=== PATIENT | female | born 1930 | race Two or more races ===

== ENCOUNTER 2018-03-24 11:16 | Inpatient (IN) ==
[2018-03-24] MEDS ORDERED: PHARMACY CONSULT - DOSE _____ XX SCH (16:59)
[2018-03-24] MEDS ORDERED: TUSSIONEX PENNKINETIC SUSP PO PRN (16:59)
[2018-03-24] MEDS ORDERED: SALINE 3% 15 ML NEB TX ONE (17:18)
[2018-03-24] MEDS ORDERED: SALINE 3% 15 ML NEB TX NEB ONE (17:40)
[2018-03-24 17:49] LABS: BASOPHILS # (AUTO) 0.1 X10^3/uL (0.0-0.1); BASOPHILS % (AUTO) 0.1 % (0.2-1.0); EOSINOPHILS % (AUTO) 0.1 % (0.9-2.9); HEMATOCRIT 27.2 % (36.0-47.0); LYMPHOCYTES # (AUTO) 43.5 X10^3/uL (1.3-2.9); LYMPHOCYTES % (AUTO) 86.5 % (21.0-51.0); MEAN CORPUSCULAR HEMOGLOBIN 30.3 pg (27.0-34.0); MEAN CORPUSCULAR HGB CONC 33.1 g/dL (33.0-35.0); MEAN CORPUSCULAR VOLUME 91.4 fL (80.0-100.0); MEAN PLATELET VOLUME 10.2 fL (7.4-11.0); MONOCYTES # (AUTO) 0.2 x10^3/uL (0.3-0.8); MONOCYTES % (AUTO) 0.4 % (0.0-13.0); NEUTROPHILS # (AUTO) 6.5 x10^3/uL (2.2-4.8); NEUTROPHILS % (AUTO) 12.9 % (42.0-75.0); PLATELET COUNT 186 X10^3/uL (150.0-450.0); RED BLOOD COUNT 2.98 X10^6/uL (3.5-5.4); RED CELL DISTRIBUTION WIDTH 15.4 % (11.6-16.5)
[2018-03-24 17:58] LABS: WHITE BLOOD COUNT 50.3 X10^3/uL (3.6-10.0)
[2018-03-24 18:04] LABS: CALCIUM 9.8 mg/dL (8.5-10.1); CARBON DIOXIDE 29.1 mmol/L (21-32); COR CA(FOR HYPOALB) 10.6 mg/dL (8.5-10.1); CREATININE 1.37 mg/dL (0.55-1.02); TOTAL PROTEIN 7.5 g/dL (6.4-8.2)
[2018-03-24] MEDS ORDERED: NS 1/2 1000 ML IV 1,000 ML IV ONE (18:10)
[2018-03-24 18:13] VITALS: BMI 25.4
[2018-03-24] MEDS: NS 1/2 1000 ML IV 1,000 ML IV SCH (18:17)
[2018-03-24] MEDS: ROBITUSSIN DM PO SCH ×3 (18:17→20:07)
[2018-03-24 18:53] LABS: METAMYELOCYTES % 11; MYELOCYTES % 19; PLATELET MORPHOLOGY COMMENT NORMAL (NORMAL); SMUDGE CELLS FEW
[2018-03-24 18:54] LABS: HYPOCHROMASIA 1+
--- NOTE | 2018-03-24 19:04 | RAD ---
HISTORY: Productive cough Study: PA and lateral views of the chest. Comparison: None. Findings: The cardiomediastinal silhouette is normal. No focal consolidations, pleural effusions or pneumothora x. Osseous structures demonstrate no acute abnormality. Bilateral hyper expansion with coarsening of interstitial markings. IMPRESSION: 1. No acute cardiopulmonary process. Reported By:
[2018-03-24] MEDS: XOPENEX 1.25 MG/3 ML NEBULE NEB SCH (20:00)
[2018-03-24] MEDS: LEVAQUIN PREMIX IV 750 MG 750 MG/150 ML BAG IV SCH (20:07)
[2018-03-25] MEDS: NS 1/2 1000 ML IV 1,000 ML IV SCH ×3 (06:07→21:15)
[2018-03-25 06:41] LABS: BASOPHILS # (AUTO) 0.2 X10^3/uL (0.0-0.1); BASOPHILS % (AUTO) 0.4 % (0.2-1.0); HEMATOCRIT 25.5 % (36.0-47.0); HEMOGLOBIN 8.4 g/dL (12.0-16.0); LYMPHOCYTES # (AUTO) 31.9 X10^3/uL (1.3-2.9); LYMPHOCYTES % (AUTO) 80.3 % (21.0-51.0); MEAN CORPUSCULAR HEMOGLOBIN 29.9 pg (27.0-34.0); MEAN CORPUSCULAR HGB CONC 33.1 g/dL (33.0-35.0); MEAN CORPUSCULAR VOLUME 90.3 fL (80.0-100.0); MEAN PLATELET VOLUME 10.2 fL (7.4-11.0); MONOCYTES # (AUTO) 1.2 x10^3/uL (0.3-0.8); NEUTROPHILS # (AUTO) 6.5 x10^3/uL (2.2-4.8); NEUTROPHILS % (AUTO) 16.3 % (42.0-75.0); PLATELET COUNT 162 X10^3/uL (150.0-450.0); RED BLOOD COUNT 2.83 X10^6/uL (3.5-5.4); RED CELL DISTRIBUTION WIDTH 15.7 % (11.6-16.5)
[2018-03-25 06:43] LABS: BILIRUBIN,URINE NEGATIVE (NEGATIVE); BLOOD/HEMOGLOBIN,URINE 3+ (NEGATIVE); GLUCOSE, URINE NEGATIVE (NEGATIVE); KETONES,URINE NEGATIVE (NEGATIVE); LEUKOCYTE ESTERASE ,URINE NEGATIVE (NEGATIVE); NITRITES,URINE NEGATIVE (NEGATIVE); PROTEIN,URINE 2+ (NEGATIVE); UROBILINOGEN,URINE NORMAL (NORMAL)
[2018-03-25 06:45] LABS: APPEARANCE,URINE CLEAR (CLEAR); COLOR,URINE YELLOW (YELLOW)
[2018-03-25 06:58] LABS: AMORPHOUS SEDIMENT,UR TRACE /HPF (NEGATIVE); BACTERIA,URINE TRACE /HPF (NEGATIVE); SQUAMOUS EPITHELIAL CELL,UR RARE /HPF (NEGATIVE)
[2018-03-25 06:58] LABS: ALBUMIN 2.6 g/dL (3.4-5.0); CALCIUM 9.4 mg/dL (8.5-10.1); CARBON DIOXIDE 27.1 mmol/L (21-32); COR CA(FOR HYPOALB) 10.5 mg/dL (8.5-10.1); CREATININE 1.18 mg/dL (0.55-1.02); TOTAL PROTEIN 6.8 g/dL (6.4-8.2)
[2018-03-25 07:02] LABS: WHITE BLOOD COUNT 39.8 X10^3/uL (3.6-10.0)
[2018-03-25 07:24] LABS: BAND NEUTROPHILS % 3 % (0-10)
[2018-03-25 07:25] LABS: PLATELET MORPHOLOGY COMMENT NORMAL (NORMAL); SMUDGE CELLS RARE
[2018-03-25 07:26] LABS: HYPOCHROMASIA SLIGHT
[2018-03-25] MEDS ORDERED: ROBITUSSIN DM ONE (07:52)
[2018-03-25] MEDS: ROBITUSSIN DM PO SCH ×4 (08:35→21:13)
--- NOTE | 2018-03-25 08:43 | RAD ---
HISTORY: Pneumonia Study: AP portable chest Comparison: 03/24/2018 Findings: There again noted to be coarsened lung markings bilaterally, unchanged. Minimal apical pleural/paren chymal thickening is noted. The heart size is normal. Electronic cardiac device is present on the l eft and its leads appear to be in appropriate position. There appears to be cardiac valve/annulus ca lcification. No acute bony abnormalities are identified. IMPRESSION: 1. Findings of chronic interstitial scarring. 2. No radiographic evidence of acute cardiopulmonary disease or significant change is noted when comp ared to the prior examination. Reported By:
[2018-03-25] MEDS: XOPENEX 1.25 MG/3 ML NEBULE NEB SCH ×4 (09:20→20:34)
[2018-03-25] MEDS ORDERED: NS 1/2 1000 ML IV 1,000 ML IV ONE ×2 (10:11→21:47)
[2018-03-25] MEDS ORDERED: ZOFRAN TAB 4 MG PO PRN (10:45)
[2018-03-25] MEDS: HEMOCYTE-PLUS PO SCH (12:23)
[2018-03-25] MEDS: VOLTAREN 1 % GEL MULTI DOSE TUBE TOP SCH ×3 (12:24→21:16)
[2018-03-25] MEDS: COLACE CAP 100 MG PO SCH ×2 (12:24→21:13)
[2018-03-25] MEDS: COZAAR PO SCH ×2 (12:24→21:13)
[2018-03-25] MEDS: CLARITIN PO SCH (12:24)
[2018-03-25] MEDS: CHLORTHALIDONE PO SCH (12:24)
[2018-03-25] MEDS: NORVASC TAB 5 MG PO SCH (12:25)
[2018-03-25] MEDS: TORADOL 15 MG VIAL IVP SCH ×3 (12:25→22:22)
[2018-03-25] MEDS: MIRALAX POWDER (1 DOSE 17 G) PO SCH ×2 (12:25→21:12)
[2018-03-25] MEDS ORDERED: PATIENT'S HOME MEDICATION (Famotidine [Pepcid] 40 MG) PO SCH (21:00)
[2018-03-25] MEDS: ZOCOR TAB 20 MG PO SCH (21:13)
[2018-03-25] MEDS: PEPCID TAB 20 MG PO SCH (21:14)
[2018-03-26] MEDS: TORADOL 15 MG VIAL IVP SCH ×4 (05:42→22:17)
[2018-03-26] MEDS: VOLTAREN 1 % GEL MULTI DOSE TUBE TOP SCH ×3 (05:43→22:18)
--- NOTE | 2018-03-26 06:21 | RAD ---
Examination: AP chest History: Pneumonia Comparison reference 03/17/2018 Findings: Continued normal heart size with stable position of pacemaker. Degenerative calcification mitral annulus. Mild vascular congestion and suspect chronic peribronchial thickening. Impression: No interval change or new abnormality demonstrated. Reported By:
[2018-03-26 06:36] LABS: BASOPHILS # (AUTO) 0.1 X10^3/uL (0.0-0.1); BASOPHILS % (AUTO) 0.3 % (0.2-1.0); EOSINOPHILS % (AUTO) 0.1 % (0.9-2.9); HEMOGLOBIN 7.9 g/dL (12.0-16.0); LYMPHOCYTES # (AUTO) 34.7 X10^3/uL (1.3-2.9); LYMPHOCYTES % (AUTO) 87.5 % (21.0-51.0); MEAN CORPUSCULAR HEMOGLOBIN 29.8 pg (27.0-34.0); MEAN CORPUSCULAR HGB CONC 33.1 g/dL (33.0-35.0); MEAN CORPUSCULAR VOLUME 90.1 fL (80.0-100.0); MEAN PLATELET VOLUME 10.1 fL (7.4-11.0); MONOCYTES # (AUTO) 0.9 x10^3/uL (0.3-0.8); MONOCYTES % (AUTO) 2.4 % (0.0-13.0); NEUTROPHILS # (AUTO) 3.8 x10^3/uL (2.2-4.8); NEUTROPHILS % (AUTO) 9.7 % (42.0-75.0); PLATELET COUNT 161 X10^3/uL (150.0-450.0); RED BLOOD COUNT 2.67 X10^6/uL (3.5-5.4); RED CELL DISTRIBUTION WIDTH 15.4 % (11.6-16.5)
[2018-03-26 06:48] LABS: ALANINE AMINOTRANSFERASE 16 Units/L (12-78); ALBUMIN 2.5 g/dL (3.4-5.0); ALKALINE PHOSPHATASE 76 Units/L (46-116); ASPARTATE AMINO TRANSFERASE 17 Units/L (15-37); BLOOD UREA NITROGEN 32 mg/dL (7-18); CALCIUM 9.1 mg/dL (8.5-10.1); CARBON DIOXIDE 26.5 mmol/L (21-32); CHLORIDE 98 mmol/L (98-107); COR CA(FOR HYPOALB) 10.3 mg/dL (8.5-10.1); CREATININE 1.29 mg/dL (0.55-1.02); SODIUM 133 mmol/L (136-145); TOTAL PROTEIN 6.4 g/dL (6.4-8.2); eGFR NON BLACK RACES 42 (>60)
[2018-03-26 06:55] LABS: WHITE BLOOD COUNT 39.6 X10^3/uL (3.6-10.0)
[2018-03-26 07:13] LABS: BAND NEUTROPHILS % 8 % (0-10); HYPOCHROMASIA SLIGHT; PLATELET MORPHOLOGY COMMENT NORMAL (NORMAL)
--- NOTE | 2018-03-26 08:30 | DR.H&P ---
H&P - History & Physical for Day of: H&P Date: 03/24/18 - Chief Complaint Chief Complaint: cough, fever - History of Present Illness History of Present Illness: is a 87 year old patient of ours who presented to the hospital as a direct admission from [facility]. She presented with complaints of an intermittent, productive cough that began four days ago. Sputum noted to be thick and yellow. On auscultation of lung vega, patient noted with diminished breath sounds throughout. On arrival, vitals were 98.2, 100, 20, 96% RA, 151/70. Labs were obtained. Abnormal lab values include the following: Abnormal Labs: WBC 50.3, RBC 2.98, Hgb 9.0, Hct 27.2, Sodium 134, Corrected Sodium 134, Chloride 96, BUN 35, Creatinine 1.37, GFR af 47, GFR non 39, Glucose 116, Corrected Calcium 10.6, AST 13, Albumin 3.0 , A/G ratio 0.7. Blood Cultures x2 Pending. Sputum Culture Pending; Sputum Gram Stain - Gram Neg Cocci Rare, Gram Pos Rods Rare, Gram Pos Cocci Many, Gram Neg Rods Few, WBC Many. Chest X-Ray: No acute cardiopulmonary process. Patient does have a history significant for leukemia. She was started on the pneumonia protocol with levaquin 750mg IV Q48h, neb treatments, supplemental oxygen, and NS at 75ml/hr. We plan to follow up with AM labs and chest xray and continue to monitor patient. - Past Medical History Past Medical History: Arthritis, CHF, Dementia, Dyslipidemia, GERD, Hypertension , [place] Additional Medical History: TIA, DEMENTIA, CONSTIPATION, UTIs, MUSCLE WEAKNESS, LEUKEMIA - Past Surgical History Surgical History: Other Additional Surgical History: PACEMAKER - Family History Family Medical History: Cancer, [place] - Social History Does patient currently use any type of tobacco product: No Have you used tobacco products in the last 12 months: No Type of Tobacco Use: None Does any household member use tobacco: No Alcohol Use: None Drug Use: Prescription Drugs - Medications Home Medications: codeine Allergy (Severe, Verified 03/24/18 17:29) CONTINUE taking the following medications amlodipine [Norvasc] 5 mg PO DAILY 03/24/18 [History] chlorthalidone 25 mg PO DAILY 03/24/18 [History] dextromethorphan HBr 15 mg PO BID 03/24/18 [History] diclofenac sodium [Voltaren] 2 g TOPICAL TID 03/24/18 [History] docusate sodium [Colace] 100 mg PO BID 03/24/18 [History] famotidine [Pepcid] 40 mg PO HS 03/24/18 [History] iron-folic acid-mv, min cmb#15 [Hemocyte-Plus] 1 cap PO QAM 03/24/18 [History] loratadine [Claritin] 10 mg PO DAILY 03/24/18 [History] losartan [Cozaar] 50 mg PO BID 03/24/18 [History] ondansetron HCl [Zofran] 4 mg PO Q4H PRN 03/24/18 [History] polyethylene glycol 3350 [Miralax] 17 g PO BID 03/24/18 [History] simvastatin [Zocor] 20 mg PO HS 03/24/18 [History] tramadol [Ultram] 50 mg PO Q6H PRN 03/24/18 [History] - Review of Systems Constitutional: Fever, Weakness Eyes: No Symptoms Reported ENT: No Symptoms Reported Respiratory: Cough, Shortness of Breath, Sputum Cardiovascular: No Symptoms Reported Gastrointestinal: No Symptoms Reported Genitourinary: No Symptoms Reported Musculoskeletal: No Symptoms Reported Skin: No Symptoms Reported Neurological: Weakness - Physical Exam Vital Signs: Temperature 98.5 F Pulse Rate [Left Radial] 87 Pulse Rate 81 Respiratory Rate 20 Blood Pressure [Left Arm] 152/68 O2 Sat by Pulse Oximetry 96 Oriented: Normal Eyes: Normal Ear: Normal Nose: Normal Throat: Normal Respiratory: Diminished Throughout Cardiovascular: Normal. negative: S3, S4, Murmur : Normal Auscultation: Bowel Sounds: Normal Palpation: Normal Tenderness: Normal Skin: Normal Musculoskeletal: Normal Psychiatric: Normal Mood Description: Calm Affect: Normal Speech Pattern: Clear - Assessment/Plan (1) Bronchopneumonia Status: Acute - Allergies Allergies/Adverse Reactions: Allergies Allergy/AdvReac Type Severity Reaction Status Date / Time codeine Allergy Severe Verified 03/24/18 17:29
[2018-03-26] MEDS: XOPENEX 1.25 MG/3 ML NEBULE NEB SCH ×4 (09:15→20:29)
[2018-03-26] MEDS: TESSALON PERLES PO SCH ×3 (09:48→22:17)
[2018-03-26] MEDS: COLACE CAP 100 MG PO SCH ×2 (09:49→20:17)
[2018-03-26] MEDS: HEMOCYTE-PLUS PO SCH (09:49)
[2018-03-26] MEDS: ROBITUSSIN DM PO SCH ×4 (09:49→20:18)
[2018-03-26] MEDS: MIRALAX POWDER (1 DOSE 17 G) PO SCH ×2 (09:49→20:18)
[2018-03-26] MEDS: CHLORTHALIDONE PO SCH (09:50)
[2018-03-26] MEDS: COZAAR PO SCH ×2 (09:50→20:17)
[2018-03-26] MEDS: CLARITIN PO SCH (09:50)
[2018-03-26] MEDS: NORVASC TAB 5 MG PO SCH (09:50)
[2018-03-26] MEDS ORDERED: NS 1/2 1000 ML IV 1,000 ML IV ONE ×2 (11:16→22:53)
[2018-03-26] MEDS: NS 1/2 1000 ML IV 1,000 ML IV SCH (11:20)
[2018-03-26] MEDS: LEVAQUIN PREMIX IV 750 MG 750 MG/150 ML BAG IV SCH (20:16)
[2018-03-26] MEDS: PEPCID TAB 20 MG PO SCH (20:17)
[2018-03-26] MEDS: ZOCOR TAB 20 MG PO SCH (20:18)
[2018-03-27] MEDS: ULTRAM PO PRN ×2 (00:16→13:48)
[2018-03-27] MEDS: NS 1/2 1000 ML IV 1,000 ML IV SCH ×2 (01:46→14:00)
[2018-03-27] MEDS: TORADOL 15 MG VIAL IVP SCH (05:07)
[2018-03-27] MEDS: TESSALON PERLES PO SCH ×3 (05:08→21:37)
[2018-03-27] MEDS: VOLTAREN 1 % GEL MULTI DOSE TUBE TOP SCH ×3 (05:08→21:37)
[2018-03-27 05:16] LABS: BASOPHILS # (AUTO) 0.1 X10^3/uL (0.0-0.1); BASOPHILS % (AUTO) 0.2 % (0.2-1.0); HEMATOCRIT 24.6 % (36.0-47.0); LYMPHOCYTES # (AUTO) 41.4 X10^3/uL (1.3-2.9); LYMPHOCYTES % (AUTO) 88.1 % (21.0-51.0); MEAN CORPUSCULAR HEMOGLOBIN 29.4 pg (27.0-34.0); MEAN CORPUSCULAR HGB CONC 32.3 g/dL (33.0-35.0); MONOCYTES # (AUTO) 1.4 x10^3/uL (0.3-0.8); MONOCYTES % (AUTO) 3.1 % (0.0-13.0); NEUTROPHILS % (AUTO) 8.6 % (42.0-75.0); PLATELET COUNT 177 X10^3/uL (150.0-450.0); RED BLOOD COUNT 2.71 X10^6/uL (3.5-5.4); RED CELL DISTRIBUTION WIDTH 15.9 % (11.6-16.5)
[2018-03-27 05:35] LABS: ALANINE AMINOTRANSFERASE 16 Units/L (12-78); ALBUMIN 2.4 g/dL (3.4-5.0); ALKALINE PHOSPHATASE 85 Units/L (46-116); ASPARTATE AMINO TRANSFERASE 17 Units/L (15-37); BLOOD UREA NITROGEN 29 mg/dL (7-18); CALCIUM 8.5 mg/dL (8.5-10.1); CARBON DIOXIDE 25.9 mmol/L (21-32); CHLORIDE 99 mmol/L (98-107); COR CA(FOR HYPOALB) 9.8 mg/dL (8.5-10.1); CREATININE 1.29 mg/dL (0.55-1.02); SODIUM 132 mmol/L (136-145); TOTAL PROTEIN 6.3 g/dL (6.4-8.2); eGFR NON BLACK RACES 42 (>60)
--- NOTE | 2018-03-27 07:36 | RAD ---
Examination: AP chest History: SOB Comparison reference 03/26/2018 Findings: Continued normal heart size with stable position of pacemaker. Diffuse interstitial increas e again noted consistent with some combination of chronic peribronchial thickening and vascular conge stion. No aspen pulmonary edema, consolidation, pneumothorax or pleural fluid. Impression: No significant change since 1 day earlier. Reported By:
[2018-03-27] MEDS: XOPENEX 1.25 MG/3 ML NEBULE NEB SCH ×4 (09:04→20:18)
[2018-03-27] MEDS: MIRALAX POWDER (1 DOSE 17 G) PO SCH ×3 (09:15→20:06)
[2018-03-27] MEDS: NORVASC TAB 5 MG PO SCH (09:16)
[2018-03-27] MEDS: ROBITUSSIN DM PO SCH ×4 (09:16→20:05)
[2018-03-27] MEDS: CLARITIN PO SCH (09:16)
[2018-03-27] MEDS: HEMOCYTE-PLUS PO SCH (09:16)
[2018-03-27] MEDS: CHLORTHALIDONE PO SCH (09:16)
[2018-03-27] MEDS: COZAAR PO SCH ×2 (09:16→20:05)
[2018-03-27] MEDS: COLACE CAP 100 MG PO SCH ×2 (09:16→20:05)
[2018-03-27] MEDS ORDERED: NS 1/2 1000 ML IV 1,000 ML IV ONE (13:29)
--- NOTE | 2018-03-27 18:16 | PCM.PROG ---
Progress Note - Progress Note for Day of Date of Exam: 03/25/18 - Subjective Subjective: WAS ADMITTED FOR BRONCHOPNEUMONIA. TODAY, SHE IS ALERT AND ORIENTED, LYING IN BED ON MORNING ROUNDS. SHE CONTINUES WITH COMPLAINTS OF SHORTNESS OF BREATH AND A PRODUCTIVE COUGH. ON EXAMINATION, HEART IS REGULAR IN RATE AND RHYTHM. BILATERAL LUNGS ARE NOTED WITH SCATTERED WHEEZING THROUGHOUT. ABDOMEN IS ROUND, SOFT, AND NON-TENDER WITH NORMAL BOWEL SOUNDS NOTED IN ALL QUADRANTS. HER VITALS THIS MORNING ARE 99.0-95-22-92%-151/76. LABS WERE OBTAINED. ABNORMAL LAB VALUES INCLUDE THE FOLLOWING: WBC 39.8, RBC 2.83, HGB 8. , HCT 25.5, SODIUM 134, CHLORIDE 97, BUN 30, CREATININE 1.18, GLUCOSE 111, URIC ACID 7.8, AST 14, ALBUMIN 2.6. A URINALYSIS WAS OBTAINED THIS MORNING AND REVEALED WBC 0-2, RBC 3-5, BACTERIA TRACE, LEUKOCYTES NEGATIVE, OCCULT BLOOD 3+ , PROTEIN 2+. A URINE CULTURE WAS SET UP. BLOOD CULTURES AND A SPUTUM CULTURE IS ALSO PENDING. TODAYS CHEST XRAY REVEALES FINDINGS OF CHRONIC INTERSTITIAL SCARRING. MINIMAL APICAL PLEURAL/PARENCHYMAL THICKENING NOTED. TODAY, WE WILL OBTAIN A PERIPHERAL SMEAR AND START TORADOL 30MG IV Q6H. OTHERWISE, WE WILL CONTINUE WITH IV ANTIBIOTICS, RESPIRATORY TREATMENTS, AND CURRENT PLAN OF CARE. WE PLAN TO FOLLOW UP WITH AM LABS AND CONTINUE TO MONITOR PATIENT. - Past Medical Family Social History Past Med/Fam/Surg Hx: No changes since H&P Allergies: Allergies codeine Allergy (Severe, Verified 03/24/18 17:29) - Review of Systems ROS: No change since H&P - Vital Signs and I&O's Vital Signs: Temperature 97.8 F Pulse Rate [Left Radial] 99 Pulse Rate 95 Respiratory Rate 20 Blood Pressure [Left Arm] 127/57 O2 Sat by Pulse Oximetry 92 Intake and Output: Intake & Output 03/25/18 03/26/18 03/27/18 03/28/18 11:59 11:59 11:59 11:59 Intake Total 1949 1278 / 1278 Balance 1949 1278 / 1278 - Physical Exam Oriented: Normal Eyes: Normal Ear: Normal Nose: Normal Throat: Normal Respiratory: Generalized, Wheezes Cardiovascular: Normal. negative: S3, S4, Murmur : Normal Auscultation: Bowel Sounds: Normal Palpation: Normal Tenderness: Normal Skin: Normal Musculoskeletal: Normal Psychiatric: Normal Mood Description: Calm Affect: Normal Speech Pattern: Clear, Appropriate - Laboratory and Diagnostics Result Diagrams: 03/27/18 04:20 03/27/18 04:20 Labs: 03/25/18 05:45 Urine,Clean Catch Urine Culture - Final 03/24/18 17:22 Blood Blood Culture - Preliminary 03/24/18 17:21 Blood Blood Culture - Preliminary 03/24/18 17:55 Sputum - Expectorated Sputum Sputum Culture - Final 03/24/18 17:55 Sputum - Expectorated Sputum - Final Laboratory WBC 47.0 X10^3/uL (3.6-10.0) H* 03/27/18 04:20 RBC 2.71 X10^6/uL (3.5-5.4) L 03/27/18 04:20 Hgb 8.0 g/dL (12.0-16.0) L 03/27/18 04:20 Hct 24.6 % (36.0-47.0) L 03/27/18 04:20 MCV 91.0 fL (80.0-100.0) 03/27/18 04:20 MCH 29.4 pg (27.0-34.0) 03/27/18 04:20 MCHC 32.3 g/dL (33.0-35.0) L 03/27/18 04:20 RDW 15.9 % (11.6-16.5) 03/27/18 04:20 Plt Count 177 X10^3/uL (150.0-450.0) 03/27/18 04:20 Plt Count Comment Adequate (ADEQUATE) 03/26/18 05:47 MPV 10.0 fL (7.4-11.0) 03/27/18 04:20 Neut % (Auto) 8.6 % (42.0-75.0) L 03/27/18 04:20 Lymph % (Auto) 88.1 % (21.0-51.0) H 03/27/18 04:20 [place] % (Auto) 3.1 % (0.0-13.0) 03/27/18 04:20 Eos % (Auto) 0.0 % (0.9-2.9) L 03/27/18 04:20 Baso % (Auto) 0.2 % (0.2-1.0) 03/27/18 04:20 Neut # (Auto) 4.0 x10^3/uL (2.2-4.8) 03/27/18 04:20 Lymph # (Auto) 41.4 X10^3/uL (1.3-2.9) H 03/27/18 04:20 [place] # (Auto) 1.4 x10^3/uL (0.3-0.8) H 03/27/18 04:20 Eos # (Auto) 0.0 x10^3/uL (0.0-0.2) 03/27/18 04:20 Baso # (Auto) 0.1 X10^3/uL (0.0-0.1) 03/27/18 04:20 Absolute Nucleated RBC 0.1 /100WBC 03/27/18 04:20 Total Counted 100 03/26/18 05:47 Neutrophils % (Manual) 12 % (39-76) L 03/26/18 05:47 Band Neutrophils % 8 % (0-10) 03/26/18 05:47 Lymphocytes % (Manual) 65 % (13-43) H 03/26/18 05:47 Monocytes % (Manual) 6 % (4-9) 03/25/18 05:55 Metamyelocytes % 11 03/24/18 17:21 Myelocytes % 19 03/24/18 17:21 Atypical Lymphocytes 15 03/26/18 05:47 Blast Cells 8 (-1) H 03/24/18 17:21 Smudge Cells Rare 03/25/18 05:55 Plt Morphology Comment Normal (NORMAL) 03/26/18 05:47 RBC Morphology Abnormal (NORMAL) A 03/26/18 05:47 Hypochromasia Slight A 03/26/18 05:47 Macrocytosis 1+ A 03/24/18 17:21 Sodium 132 mmol/L (136-145) L 03/27/18 04:20 Corrected Sodium TNP 03/27/18 04:20 Potassium 3.9 mmol/L (3.5-5.1) 03/27/18 04:20 Chloride 99 mmol/L (98-107) 03/27/18 04:20 Carbon Dioxide 25.9 mmol/L (21-32) 03/27/18 04:20 BUN 29 mg/dL (7-18) H 03/27/18 04:20 Creatinine 1.29 mg/dL (0.55-1.02) H 03/27/18 04:20 Est GFR (MDRD) Af Amer 50 (>60) L 03/27/18 04:20 Est GFR (MDRD) Non-Af 42 (>60) L 03/27/18 04:20 Glucose 108 mg/dL (65-99) H 03/27/18 04:20 Lactic Acid 0.6 mmol/L (0.4-2.0) 03/24/18 18:10 Uric Acid 7.9 mg/dL (2.6-6.0) H 03/25/18 05:55 Calcium 8.5 mg/dL (8.5-10.1) 03/27/18 04:20 Corrected Calcium 9.8 mg/dL (8.5-10.1) 03/27/18 04:20 Total Bilirubin 0.10 mg/dL (0.2-1.0) L 03/27/18 04:20 AST 17 Units/L (15-37) 03/27/18 04:20 ALT 16 Units/L (12-78) 03/27/18 04:20 Alkaline Phosphatase 85 Units/L (46-116) 03/27/18 04:20 Total Protein 6.3 g/dL (6.4-8.2) L 03/27/18 04:20 Albumin 2.4 g/dL (3.4-5.0) L 03/27/18 04:20 Globulin 3.9 g/dL (2.5-4.5) 03/27/18 04:20 Albumin/Globulin Ratio 0.6 Ratio (1.1-2.1) L 03/27/18 04:20 Specimen Type Catherized urine 03/25/18 05:45 Urine Color Yellow (YELLOW) 03/25/18 05:45 Urine Appearance Clear (CLEAR) 03/25/18 05:45 Urine pH 5.0 (5.0 - 8.0) 03/25/18 05:45 Ur Specific [place] 1.015 (1.000-1.030) 03/25/18 05:45 Urine Protein 2+ (NEGATIVE) 03/25/18 05:45 Urine Glucose (UA) Negative (NEGATIVE) 03/25/18 05:45 Urine Ketones Negative (NEGATIVE) 03/25/18 05:45 Urine Occult Blood 3+ (NEGATIVE) 03/25/18 05:45 Urine Nitrite Negative (NEGATIVE) 03/25/18 05:45 Urine Bilirubin Negative (NEGATIVE) 03/25/18 05:45 Urine Urobilinogen Normal (NORMAL) 03/25/18 05:45 Ur Leukocyte Esterase Negative (NEGATIVE) 03/25/18 05:45 Urine RBC 3-5 /HPF (NONE SEEN) 03/25/18 05:45 Urine WBC 0-2 /HPF (NONE SEEN) 03/25/18 05:45 Ur Squamous Epith Cells Rare /HPF (NEGATIVE) 03/25/18 05:45 Amorphous Sediment Trace /HPF (NEGATIVE) 03/25/18 05:45 Urine Bacteria Trace /HPF (NEGATIVE) 03/25/18 05:45 Ur Culture Indicated? Yes/culture set up 03/25/18 05:45 - Plan (1) Bronchopneumonia Status: Acute Plan: CONTINUE IV ANTIBIOTICS, CONTINUE SUPPLEMENTAL OXYGEN AND RESPIRATORY TX, TORADOL 30MG IV Q6H PRN, CONTINUE TO MONITOR (2) History of leukemia Status: Chronic (3) Hypertension Status: Chronic Qualifiers: Hypertension type: essential hypertension Qualified Code(s): I10 - Essential (primary) hypertension Plan: CONTINUE NORVASC, CONTINUE COZAAR, CONTINUE TO MONITOR (4) Hyperlipidemia Status: Chronic Qualifiers: Hyperlipidemia type: mixed hyperlipidemia Qualified Code(s): E78.2 - Mixed hyperlipidemia Plan: CONTINUE ZOCOR, CONTINUE TO MONITOR (5) GERD (gastroesophageal reflux disease) Status: Chronic Qualifiers: Esophagitis presence: esophagitis presence not specified Qualified Code(s) : K21.9 - Gastro-esophageal reflux disease without esophagitis Plan: CONTINUE PEPCID, CONTINUE TO MONITOR
--- NOTE | 2018-03-27 18:21 | PCM.PROG ---
Progress Note - Progress Note for Day of Date of Exam: 03/26/18 - Subjective Subjective: WAS ADMITTED FOR BRONCHOPNEUMONIA. TODAY, SHE IS ALERT AND ORIENTED, LYING IN BED ON MORNING ROUNDS. SHE CONTINUES WITH COMPLAINTS OF SHORTNESS OF BREATH AND A PRODUCTIVE COUGH. ON EXAMINATION, HEART IS REGULAR IN RATE AND RHYTHM. BILATERAL LUNGS ARE NOTED WITH SCATTERED WHEEZING THROUGHOUT. ABDOMEN IS ROUND, SOFT, AND NON-TENDER WITH NORMAL BOWEL SOUNDS NOTED IN ALL QUADRANTS. HER VITALS THIS MORNING ARE 98.5-69-65-96-152/68. LABS WERE OBTAINED. ABNORMAL LAB VALUES INCLUDE THE FOLLOWING: WBC 39.6, RBC 2.67, HGB 7.9 , HCT 24.0, SODIUM 133, BUN 32, CREATININE 1.29, GLUCOSE 100, ALBUIN 2.5. BLOOD , SPUTUM, AND URINE CULTURES ARE PENDING. TODAYS CHEST XRAY REVEALES MILD VASCULAR CONGESTION AND SUSPECT CHRONIC PERIBRONCHIAL THICKENING. TODAY, WE WILL CONTINUE WITH IV ANTIBIOTICS, RESPIRATORY TREATMENTS, AND CURRENT PLAN OF CARE. WE PLAN TO FOLLOW UP WITH AM LABS AND CONTINUE TO MONITOR PATIENT. - Past Medical Family Social History Past Med/Fam/Surg Hx: No changes since H&P Allergies: Allergies codeine Allergy (Severe, Verified 03/24/18 17:29) - Review of Systems ROS: No change since H&P - Vital Signs and I&O's Vital Signs: Temperature 97.8 F Pulse Rate [Left Radial] 99 Pulse Rate 95 Respiratory Rate 20 Blood Pressure [Left Arm] 127/57 O2 Sat by Pulse Oximetry 92 Intake and Output: Intake & Output 03/25/18 03/26/18 03/27/18 03/28/18 11:59 11:59 11:59 11:59 Intake Total 1949 1278 / 1278 Balance 1949 1278 / 1278 - Physical Exam Oriented: Normal Eyes: Normal Ear: Normal Nose: Normal Throat: Normal Respiratory: Generalized, Wheezes Cardiovascular: Normal. negative: S3, S4, Murmur : Normal Auscultation: Bowel Sounds: Normal Palpation: Normal Tenderness: Normal Skin: Normal Musculoskeletal: Normal Psychiatric: Normal Mood Description: Calm Affect: Normal Speech Pattern: Clear, Appropriate - Laboratory and Diagnostics Result Diagrams: 03/27/18 04:20 03/27/18 04:20 Labs: 03/25/18 05:45 Urine,Clean Catch Urine Culture - Final 03/24/18 17:22 Blood Blood Culture - Preliminary 03/24/18 17:21 Blood Blood Culture - Preliminary 03/24/18 17:55 Sputum - Expectorated Sputum Sputum Culture - Final 03/24/18 17:55 Sputum - Expectorated Sputum - Final Laboratory WBC 47.0 X10^3/uL (3.6-10.0) H* 03/27/18 04:20 RBC 2.71 X10^6/uL (3.5-5.4) L 03/27/18 04:20 Hgb 8.0 g/dL (12.0-16.0) L 03/27/18 04:20 Hct 24.6 % (36.0-47.0) L 03/27/18 04:20 MCV 91.0 fL (80.0-100.0) 03/27/18 04:20 MCH 29.4 pg (27.0-34.0) 03/27/18 04:20 MCHC 32.3 g/dL (33.0-35.0) L 03/27/18 04:20 RDW 15.9 % (11.6-16.5) 03/27/18 04:20 Plt Count 177 X10^3/uL (150.0-450.0) 03/27/18 04:20 Plt Count Comment Adequate (ADEQUATE) 03/26/18 05:47 MPV 10.0 fL (7.4-11.0) 03/27/18 04:20 Neut % (Auto) 8.6 % (42.0-75.0) L 03/27/18 04:20 Lymph % (Auto) 88.1 % (21.0-51.0) H 03/27/18 04:20 [place] % (Auto) 3.1 % (0.0-13.0) 03/27/18 04:20 Eos % (Auto) 0.0 % (0.9-2.9) L 03/27/18 04:20 Baso % (Auto) 0.2 % (0.2-1.0) 03/27/18 04:20 Neut # (Auto) 4.0 x10^3/uL (2.2-4.8) 03/27/18 04:20 Lymph # (Auto) 41.4 X10^3/uL (1.3-2.9) H 03/27/18 04:20 [place] # (Auto) 1.4 x10^3/uL (0.3-0.8) H 03/27/18 04:20 Eos # (Auto) 0.0 x10^3/uL (0.0-0.2) 03/27/18 04:20 Baso # (Auto) 0.1 X10^3/uL (0.0-0.1) 03/27/18 04:20 Absolute Nucleated RBC 0.1 /100WBC 03/27/18 04:20 Total Counted 100 03/26/18 05:47 Neutrophils % (Manual) 12 % (39-76) L 03/26/18 05:47 Band Neutrophils % 8 % (0-10) 03/26/18 05:47 Lymphocytes % (Manual) 65 % (13-43) H 03/26/18 05:47 Monocytes % (Manual) 6 % (4-9) 03/25/18 05:55 Metamyelocytes % 11 03/24/18 17:21 Myelocytes % 19 03/24/18 17:21 Atypical Lymphocytes 15 03/26/18 05:47 Blast Cells 8 (-1) H 03/24/18 17:21 Smudge Cells Rare 03/25/18 05:55 Plt Morphology Comment Normal (NORMAL) 03/26/18 05:47 RBC Morphology Abnormal (NORMAL) A 03/26/18 05:47 Hypochromasia Slight A 03/26/18 05:47 Macrocytosis 1+ A 03/24/18 17:21 Sodium 132 mmol/L (136-145) L 03/27/18 04:20 Corrected Sodium TNP 03/27/18 04:20 Potassium 3.9 mmol/L (3.5-5.1) 03/27/18 04:20 Chloride 99 mmol/L (98-107) 03/27/18 04:20 Carbon Dioxide 25.9 mmol/L (21-32) 03/27/18 04:20 BUN 29 mg/dL (7-18) H 03/27/18 04:20 Creatinine 1.29 mg/dL (0.55-1.02) H 03/27/18 04:20 Est GFR (MDRD) Af Amer 50 (>60) L 03/27/18 04:20 Est GFR (MDRD) Non-Af 42 (>60) L 03/27/18 04:20 Glucose 108 mg/dL (65-99) H 03/27/18 04:20 Lactic Acid 0.6 mmol/L (0.4-2.0) 03/24/18 18:10 Uric Acid 7.9 mg/dL (2.6-6.0) H 03/25/18 05:55 Calcium 8.5 mg/dL (8.5-10.1) 03/27/18 04:20 Corrected Calcium 9.8 mg/dL (8.5-10.1) 03/27/18 04:20 Total Bilirubin 0.10 mg/dL (0.2-1.0) L 03/27/18 04:20 AST 17 Units/L (15-37) 03/27/18 04:20 ALT 16 Units/L (12-78) 03/27/18 04:20 Alkaline Phosphatase 85 Units/L (46-116) 03/27/18 04:20 Total Protein 6.3 g/dL (6.4-8.2) L 03/27/18 04:20 Albumin 2.4 g/dL (3.4-5.0) L 03/27/18 04:20 Globulin 3.9 g/dL (2.5-4.5) 03/27/18 04:20 Albumin/Globulin Ratio 0.6 Ratio (1.1-2.1) L 03/27/18 04:20 Specimen Type Catherized urine 03/25/18 05:45 Urine Color Yellow (YELLOW) 03/25/18 05:45 Urine Appearance Clear (CLEAR) 03/25/18 05:45 Urine pH 5.0 (5.0 - 8.0) 03/25/18 05:45 Ur Specific [place] 1.015 (1.000-1.030) 03/25/18 05:45 Urine Protein 2+ (NEGATIVE) 03/25/18 05:45 Urine Glucose (UA) Negative (NEGATIVE) 03/25/18 05:45 Urine Ketones Negative (NEGATIVE) 03/25/18 05:45 Urine Occult Blood 3+ (NEGATIVE) 03/25/18 05:45 Urine Nitrite Negative (NEGATIVE) 03/25/18 05:45 Urine Bilirubin Negative (NEGATIVE) 03/25/18 05:45 Urine Urobilinogen Normal (NORMAL) 03/25/18 05:45 Ur Leukocyte Esterase Negative (NEGATIVE) 03/25/18 05:45 Urine RBC 3-5 /HPF (NONE SEEN) 03/25/18 05:45 Urine WBC 0-2 /HPF (NONE SEEN) 03/25/18 05:45 Ur Squamous Epith Cells Rare /HPF (NEGATIVE) 03/25/18 05:45 Amorphous Sediment Trace /HPF (NEGATIVE) 03/25/18 05:45 Urine Bacteria Trace /HPF (NEGATIVE) 03/25/18 05:45 Ur Culture Indicated? Yes/culture set up 03/25/18 05:45 - Plan (1) Bronchopneumonia Status: Acute Plan: CONTINUE IV ANTIBIOTICS, CONTINUE SUPPLEMENTAL OXYGEN AND RESPIRATORY TX, TORADOL 30MG IV Q6H PRN, CONTINUE TO MONITOR (2) History of leukemia Status: Chronic (3) Hypertension Status: Chronic Qualifiers: Hypertension type: essential hypertension Qualified Code(s): I10 - Essential (primary) hypertension Plan: CONTINUE NORVASC, CONTINUE COZAAR, CONTINUE TO MONITOR (4) Hyperlipidemia Status: Chronic Qualifiers: Hyperlipidemia type: mixed hyperlipidemia Qualified Code(s): E78.2 - Mixed hyperlipidemia Plan: CONTINUE ZOCOR, CONTINUE TO MONITOR (5) GERD (gastroesophageal reflux disease) Status: Chronic Qualifiers: Esophagitis presence: esophagitis presence not specified Qualified Code(s) : K21.9 - Gastro-esophageal reflux disease without esophagitis Plan: CONTINUE PEPCID, CONTINUE TO MONITOR
[2018-03-27] MEDS: DIFLUCAN 200 MG IV PREMIX* 200 MG/100 ML BAG IV SCH (20:05)
[2018-03-27] MEDS: ZOCOR TAB 20 MG PO SCH (20:05)
[2018-03-27] MEDS: PEPCID TAB 20 MG PO SCH (20:05)
[2018-03-28] MEDS ORDERED: NS 1/2 1000 ML IV 1,000 ML IV ONE ×2 (03:05→19:38)
[2018-03-28] MEDS: VOLTAREN 1 % GEL MULTI DOSE TUBE TOP SCH ×3 (05:04→22:00)
[2018-03-28] MEDS: TESSALON PERLES PO SCH ×3 (05:04→23:03)
[2018-03-28] MEDS: NS 1/2 1000 ML IV 1,000 ML IV SCH ×2 (05:04→20:01)
[2018-03-28 05:27] LABS: BASOPHILS # (AUTO) 0.1 X10^3/uL (0.0-0.1); BASOPHILS % (AUTO) 0.2 % (0.2-1.0); EOSINOPHILS % (AUTO) 0.1 % (0.9-2.9); HEMATOCRIT 25.7 % (36.0-47.0); HEMOGLOBIN 8.4 g/dL (12.0-16.0); LYMPHOCYTES # (AUTO) 40.1 X10^3/uL (1.3-2.9); LYMPHOCYTES % (AUTO) 88.4 % (21.0-51.0); MEAN CORPUSCULAR HEMOGLOBIN 29.6 pg (27.0-34.0); MEAN CORPUSCULAR HGB CONC 32.6 g/dL (33.0-35.0); MEAN PLATELET VOLUME 9.9 fL (7.4-11.0); MONOCYTES % (AUTO) 2.2 % (0.0-13.0); NEUTROPHILS # (AUTO) 4.1 x10^3/uL (2.2-4.8); NEUTROPHILS % (AUTO) 9.1 % (42.0-75.0); PLATELET COUNT 193 X10^3/uL (150.0-450.0); RED BLOOD COUNT 2.82 X10^6/uL (3.5-5.4); RED CELL DISTRIBUTION WIDTH 15.9 % (11.6-16.5)
[2018-03-28 05:42] LABS: ALANINE AMINOTRANSFERASE 12 Units/L (12-78); ALBUMIN 2.5 g/dL (3.4-5.0); ALKALINE PHOSPHATASE 77 Units/L (46-116); ASPARTATE AMINO TRANSFERASE 19 Units/L (15-37); BLOOD UREA NITROGEN 19 mg/dL (7-18); CALCIUM 9.3 mg/dL (8.5-10.1); CHLORIDE 103 mmol/L (98-107); COR CA(FOR HYPOALB) 10.5 mg/dL (8.5-10.1); CREATININE 1.05 mg/dL (0.55-1.02); SODIUM 136 mmol/L (136-145); TOTAL PROTEIN 6.2 g/dL (6.4-8.2); eGFR NON BLACK RACES 53 (>60)
[2018-03-28 05:45] LABS: WHITE BLOOD COUNT 45.4 X10^3/uL (3.6-10.0)
--- NOTE | 2018-03-28 06:14 | RAD ---
Examination: AP chest History: SOB Comparison reference 03/27/2018 Findings: Stable heart size with no change in position of pacing device. Vascular congestion and bila teral interstitial process again noted as previously described. No superimposed consolidation, pneumo thorax or developing pleural fluid. Impression: No change since 1 day prior. Reported By:
[2018-03-28] MEDS: ROBITUSSIN DM PO SCH ×4 (08:19→20:01)
[2018-03-28] MEDS: DIFLUCAN 200 MG IV PREMIX* 200 MG/100 ML BAG IV SCH (08:19)
[2018-03-28] MEDS: NORVASC TAB 5 MG PO SCH (08:19)
[2018-03-28] MEDS: LASIX IVP SCH ×2 (08:20→20:02)
[2018-03-28] MEDS: CHLORTHALIDONE PO SCH (08:20)
[2018-03-28] MEDS: COZAAR PO SCH ×2 (08:20→20:02)
[2018-03-28] MEDS: HEMOCYTE-PLUS PO SCH (08:20)
[2018-03-28] MEDS: COLACE CAP 100 MG PO SCH ×2 (08:20→20:02)
[2018-03-28] MEDS: MIRALAX POWDER (1 DOSE 17 G) PO SCH ×3 (08:20→20:01)
[2018-03-28] MEDS: CLARITIN PO SCH (08:20)
[2018-03-28] MEDS: XOPENEX 1.25 MG/3 ML NEBULE NEB SCH ×4 (08:30→21:49)
--- NOTE | 2018-03-28 12:19 | PCM.PROG ---
Progress Note - Progress Note for Day of Date of Exam: 03/27/18 - Subjective Subjective: WAS ADMITTED FOR BRONCHOPNEUMONIA. TODAY, SHE IS ALERT AND ORIENTED, LYING IN BED ON MORNING ROUNDS. SHE CONTINUES WITH COMPLAINTS OF SHORTNESS OF BREATH AND A PRODUCTIVE COUGH. SHE ALSO REPORTS VAGINAL ITCHING. SHE REPORTS THAT SHE OFTEN GETS A YEAST INFECTION WHEN ON ANTIBIOTICS. ON EXAMINATION, HEART IS REGULAR IN RATE AND RHYTHM. BILATERAL LUNGS ARE NOTED WITH SCATTERED WHEEZING THROUGHOUT. ABDOMEN IS ROUND, SOFT, AND NON-TENDER WITH NORMAL BOWEL SOUNDS NOTED IN ALL QUADRANTS. HER VITALS THIS MORNING ARE 97.7-85- 20-97%-121/56. LABS WERE OBTAINED. ABNORMAL LAB VALUES INCLUDE THE FOLLOWING: WBC 47.0-RBC 2.71, HGB 8.0, HCT 24.6, SODIUM 132, BUN 29, CREATININE 1.29, GLUCOSE 108, TOTAL PROTEIN 6.3, ALBUMIN 2.4. BLOOD, SPUTUM, AND URINE CULTURES ARE PENDING. TODAYS CHEST XRAY REVEALS NO CHANGES SINCE YESTERDAY. TODAY, WE WILL CONTINUE WITH IV ANTIBIOTICS, RESPIRATORY TREATMENTS, AND CURRENT PLAN OF CARE. WE WILL ALSO START DIFLUCAN 200MG IV DAILY. OTHERWISE, WE PLAN TO FOLLOW UP WITH AM LABS AND CONTINUE TO MONITOR PATIENT. - Past Medical Family Social History Past Med/Fam/Surg Hx: No changes since H&P Allergies: Allergies codeine Allergy (Severe, Verified 03/24/18 17:29) - Review of Systems ROS: No change since H&P - Vital Signs and I&O's Vital Signs: Temperature 97.7 F Pulse Rate [Left Radial] 83 Pulse Rate 84 Respiratory Rate 21 Blood Pressure [Left Arm] 143/65 O2 Sat by Pulse Oximetry 93 Intake and Output: Intake & Output 03/26/18 03/27/18 03/28/18 03/29/18 11:59 11:59 11:59 11:59 Intake Total 2049 2863 / 2863 Balance 2049 2863 / 2863 - Physical Exam Oriented: Normal Eyes: Normal Ear: Normal Nose: Normal Throat: Normal Respiratory: Generalized, Wheezes Cardiovascular: Normal. negative: S3, S4, Murmur : Normal Auscultation: Bowel Sounds: Normal Palpation: Normal Tenderness: Normal Skin: Normal Musculoskeletal: Normal Psychiatric: Normal Mood Description: Calm Affect: Normal Speech Pattern: Clear, Appropriate - Laboratory and Diagnostics Result Diagrams: 03/28/18 04:10 03/28/18 04:10 Labs: 03/25/18 05:45 Urine,Clean Catch Urine Culture - Final 03/24/18 17:22 Blood Blood Culture - Preliminary 03/24/18 17:21 Blood Blood Culture - Preliminary 03/24/18 17:55 Sputum - Expectorated Sputum Sputum Culture - Final 03/24/18 17:55 Sputum - Expectorated Sputum - Final Laboratory WBC 45.4 X10^3/uL (3.6-10.0) H* 03/28/18 04:10 RBC 2.82 X10^6/uL (3.5-5.4) L 03/28/18 04:10 Hgb 8.4 g/dL (12.0-16.0) L 03/28/18 04:10 Hct 25.7 % (36.0-47.0) L 03/28/18 04:10 MCV 91.0 fL (80.0-100.0) 03/28/18 04:10 MCH 29.6 pg (27.0-34.0) 03/28/18 04:10 MCHC 32.6 g/dL (33.0-35.0) L 03/28/18 04:10 RDW 15.9 % (11.6-16.5) 03/28/18 04:10 Plt Count 193 X10^3/uL (150.0-450.0) 03/28/18 04:10 Plt Count Comment Adequate (ADEQUATE) 03/26/18 05:47 MPV 9.9 fL (7.4-11.0) 03/28/18 04:10 Neut % (Auto) 9.1 % (42.0-75.0) L 03/28/18 04:10 Lymph % (Auto) 88.4 % (21.0-51.0) H 03/28/18 04:10 [place] % (Auto) 2.2 % (0.0-13.0) 03/28/18 04:10 Eos % (Auto) 0.1 % (0.9-2.9) L 03/28/18 04:10 Baso % (Auto) 0.2 % (0.2-1.0) 03/28/18 04:10 Neut # (Auto) 4.1 x10^3/uL (2.2-4.8) 03/28/18 04:10 Lymph # (Auto) 40.1 X10^3/uL (1.3-2.9) H 03/28/18 04:10 [place] # (Auto) 1.0 x10^3/uL (0.3-0.8) H 03/28/18 04:10 Eos # (Auto) 0.0 x10^3/uL (0.0-0.2) 03/28/18 04:10 Baso # (Auto) 0.1 X10^3/uL (0.0-0.1) 03/28/18 04:10 Absolute Nucleated RBC 0.1 /100WBC 03/28/18 04:10 Total Counted 100 03/26/18 05:47 Neutrophils % (Manual) 12 % (39-76) L 03/26/18 05:47 Band Neutrophils % 8 % (0-10) 03/26/18 05:47 Lymphocytes % (Manual) 65 % (13-43) H 03/26/18 05:47 Monocytes % (Manual) 6 % (4-9) 03/25/18 05:55 Metamyelocytes % 11 03/24/18 17:21 Myelocytes % 19 03/24/18 17:21 Atypical Lymphocytes 15 03/26/18 05:47 Blast Cells 8 (-1) H 03/24/18 17:21 Smudge Cells Rare 03/25/18 05:55 Plt Morphology Comment Normal (NORMAL) 03/26/18 05:47 RBC Morphology Abnormal (NORMAL) A 03/26/18 05:47 Hypochromasia Slight A 03/26/18 05:47 Macrocytosis 1+ A 03/24/18 17:21 Sodium 136 mmol/L (136-145) 03/28/18 04:10 Corrected Sodium TNP 03/28/18 04:10 Potassium 4.1 mmol/L (3.5-5.1) 03/28/18 04:10 Chloride 103 mmol/L (98-107) 03/28/18 04:10 Carbon Dioxide 27.0 mmol/L (21-32) 03/28/18 04:10 BUN 19 mg/dL (7-18) H 03/28/18 04:10 Creatinine 1.05 mg/dL (0.55-1.02) H 03/28/18 04:10 Est GFR (MDRD) Af Amer > 60 (>60) 03/28/18 04:10 Est GFR (MDRD) Non-Af 53 (>60) L 03/28/18 04:10 Glucose 96 mg/dL (65-99) 03/28/18 04:10 Lactic Acid 0.6 mmol/L (0.4-2.0) 03/24/18 18:10 Uric Acid 7.9 mg/dL (2.6-6.0) H 03/25/18 05:55 Calcium 9.3 mg/dL (8.5-10.1) 03/28/18 04:10 Corrected Calcium 10.5 mg/dL (8.5-10.1) H 03/28/18 04:10 Total Bilirubin 0.20 mg/dL (0.2-1.0) 03/28/18 04:10 AST 19 Units/L (15-37) 03/28/18 04:10 ALT 12 Units/L (12-78) 03/28/18 04:10 Alkaline Phosphatase 77 Units/L (46-116) 03/28/18 04:10 Total Protein 6.2 g/dL (6.4-8.2) L 03/28/18 04:10 Albumin 2.5 g/dL (3.4-5.0) L 03/28/18 04:10 Globulin 3.7 g/dL (2.5-4.5) 03/28/18 04:10 Albumin/Globulin Ratio 0.7 Ratio (1.1-2.1) L 03/28/18 04:10 Specimen Type Catherized urine 03/25/18 05:45 Urine Color Yellow (YELLOW) 03/25/18 05:45 Urine Appearance Clear (CLEAR) 03/25/18 05:45 Urine pH 5.0 (5.0 - 8.0) 03/25/18 05:45 Ur Specific [place] 1.015 (1.000-1.030) 03/25/18 05:45 Urine Protein 2+ (NEGATIVE) 03/25/18 05:45 Urine Glucose (UA) Negative (NEGATIVE) 03/25/18 05:45 Urine Ketones Negative (NEGATIVE) 03/25/18 05:45 Urine Occult Blood 3+ (NEGATIVE) 03/25/18 05:45 Urine Nitrite Negative (NEGATIVE) 03/25/18 05:45 Urine Bilirubin Negative (NEGATIVE) 03/25/18 05:45 Urine Urobilinogen Normal (NORMAL) 03/25/18 05:45 Ur Leukocyte Esterase Negative (NEGATIVE) 03/25/18 05:45 Urine RBC 3-5 /HPF (NONE SEEN) 03/25/18 05:45 Urine WBC 0-2 /HPF (NONE SEEN) 03/25/18 05:45 Ur Squamous Epith Cells Rare /HPF (NEGATIVE) 03/25/18 05:45 Amorphous Sediment Trace /HPF (NEGATIVE) 03/25/18 05:45 Urine Bacteria Trace /HPF (NEGATIVE) 03/25/18 05:45 Ur Culture Indicated? Yes/culture set up 03/25/18 05:45 - Plan (1) Bronchopneumonia Status: Acute Plan: CONTINUE IV ANTIBIOTICS, CONTINUE SUPPLEMENTAL OXYGEN AND RESPIRATORY TX, TORADOL 30MG IV Q6H PRN, CONTINUE TO MONITOR (2) Yeast infection Status: Acute Plan: DIFLUCAN 200MG IV DAILY (3) History of leukemia Status: Chronic (4) Hypertension Status: Chronic Qualifiers: Hypertension type: essential hypertension Qualified Code(s): I10 - Essential (primary) hypertension Plan: CONTINUE NORVASC, CONTINUE COZAAR, CONTINUE TO MONITOR (5) Hyperlipidemia Status: Chronic Qualifiers: Hyperlipidemia type: mixed hyperlipidemia Qualified Code(s): E78.2 - Mixed hyperlipidemia Plan: CONTINUE ZOCOR, CONTINUE TO MONITOR (6) GERD (gastroesophageal reflux disease) Status: Chronic Qualifiers: Esophagitis presence: esophagitis presence not specified Qualified Code(s) : K21.9 - Gastro-esophageal reflux disease without esophagitis Plan: CONTINUE PEPCID, CONTINUE TO MONITOR
[2018-03-28] MEDS ORDERED: AYR NASAL DROPS PRN (14:31)
[2018-03-28] MEDS: LEVAQUIN PREMIX IV 750 MG 750 MG/150 ML BAG IV SCH (20:01)
[2018-03-28] MEDS: PEPCID TAB 20 MG PO SCH (20:02)
[2018-03-28] MEDS: ZOCOR TAB 20 MG PO SCH (20:02)
[2018-03-29] MEDS: TESSALON PERLES PO SCH (05:05)
[2018-03-29] MEDS: VOLTAREN 1 % GEL MULTI DOSE TUBE TOP SCH (05:05)
[2018-03-29 05:38] LABS: BASOPHILS # (AUTO) 0.1 X10^3/uL (0.0-0.1); BASOPHILS % (AUTO) 0.2 % (0.2-1.0); EOSINOPHILS % (AUTO) 0.1 % (0.9-2.9); HEMOGLOBIN 7.9 g/dL (12.0-16.0); LYMPHOCYTES # (AUTO) 44.4 X10^3/uL (1.3-2.9); LYMPHOCYTES % (AUTO) 89.1 % (21.0-51.0); MEAN CORPUSCULAR HEMOGLOBIN 29.9 pg (27.0-34.0); MEAN CORPUSCULAR HGB CONC 32.8 g/dL (33.0-35.0); MEAN CORPUSCULAR VOLUME 91.2 fL (80.0-100.0); MONOCYTES # (AUTO) 1.1 x10^3/uL (0.3-0.8); MONOCYTES % (AUTO) 2.2 % (0.0-13.0); NEUTROPHILS # (AUTO) 4.2 x10^3/uL (2.2-4.8); NEUTROPHILS % (AUTO) 8.4 % (42.0-75.0); PLATELET COUNT 206 X10^3/uL (150.0-450.0); RED BLOOD COUNT 2.63 X10^6/uL (3.5-5.4); RED CELL DISTRIBUTION WIDTH 16.2 % (11.6-16.5)
[2018-03-29 05:57] LABS: WHITE BLOOD COUNT 49.8 X10^3/uL (3.6-10.0)
[2018-03-29 06:04] LABS: ALBUMIN 2.4 g/dL (3.4-5.0); CALCIUM 9.1 mg/dL (8.5-10.1); CARBON DIOXIDE 26.6 mmol/L (21-32); COR CA(FOR HYPOALB) 10.4 mg/dL (8.5-10.1); CREATININE 1.18 mg/dL (0.55-1.02); TOTAL PROTEIN 6.1 g/dL (6.4-8.2)
--- NOTE | 2018-03-29 06:58 | RAD ---
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 The heart mildly enlarged. No congestive heart failure is identified. The aorta is calcified. The iza are normal. In terstitial lung changes and peribronchial thickening are present bilaterally not significantly change d from the prior examination and suggestive of pneumonitis and bronchitis. No alveolar infiltrates or pleural effusions are identified. IMPRESSION: Minimal cardiomegaly without congestive heart failure Interstitial lung changes and peribronchial thickening suggestive of pneumonitis/bronchitis, stable Reported By:
[2018-03-29] MEDS: CHLORTHALIDONE PO SCH (08:00)
[2018-03-29] MEDS: COLACE CAP 100 MG PO SCH (08:01)
[2018-03-29] MEDS: COZAAR PO SCH (08:01)
[2018-03-29] MEDS: CLARITIN PO SCH (08:01)
[2018-03-29] MEDS: HEMOCYTE-PLUS PO SCH (08:02)
[2018-03-29] MEDS: NORVASC TAB 5 MG PO SCH (08:02)
[2018-03-29] MEDS: NS 1/2 1000 ML IV 1,000 ML IV SCH (08:02)
[2018-03-29] MEDS: LASIX IVP SCH (08:02)
[2018-03-29] MEDS: DIFLUCAN 200 MG IV PREMIX* 200 MG/100 ML BAG IV SCH (08:02)
[2018-03-29] MEDS: MIRALAX POWDER (1 DOSE 17 G) PO SCH (08:02)
[2018-03-29] MEDS: ROBITUSSIN DM PO SCH (08:03)
--- NOTE | 2018-03-29 08:34 | PCM.PROG ---
Progress Note - Progress Note for Day of Date of Exam: 03/28/18 - Subjective Subjective: WAS ADMITTED FOR BRONCHOPNEUMONIA. TODAY, SHE IS ALERT AND ORIENTED, LYING IN BED ON MORNING ROUNDS. SHE CONTINUES WITH COMPLAINTS OF SHORTNESS OF BREATH AND A PRODUCTIVE COUGH. SHE REPORTS THAT SHORTNESS OF BREATH HAS INCREASED SINCE YESTERDAY. ON EXAMINATION, HEART IS REGULAR IN RATE AND RHYTHM. BILATERAL LUNGS ARE NOTED WITH SCATTERED WHEEZING THROUGHOUT. ABDOMEN IS ROUND, SOFT, AND NON-TENDER WITH NORMAL BOWEL SOUNDS NOTED IN ALL QUADRANTS. HER VITALS THIS MORNING ARE 98.0-82-22-95%-140/66. LABS WERE OBTAINED. ABNORMAL LAB VALUES INCLUDE THE FOLLOWING: WBC 45.4, RBC 2.82, HGB 8.4 , HCT 25.74, BUN 19, CREATININE 1.05, GFR 53, TOTAL PROTEIN 6.2, ALBUMIN 2.5. BLOOD, SPUTUM, AND URINE CULTURES ARE PENDING. PRELIMINARY CULTURES REPORT NO GROWTH. TODAYS CHEST XRAY REVEALS NO CHANGES SINCE YESTERDAY. TODAY, WE WILL CONTINUE WITH IV ANTIBIOTICS, RESPIRATORY TREATMENTS, AND CURRENT PLAN OF CARE. WE WILL START LASIX 20MG IV Q12H X 2 DOSES. OTHERWISE, WE PLAN TO FOLLOW UP WITH AM LABS AND CONTINUE TO MONITOR PATIENT. - Past Medical Family Social History Past Med/Fam/Surg Hx: No changes since H&P Allergies: Allergies codeine Allergy (Severe, Verified 03/24/18 17:29) - Review of Systems ROS: No change since H&P - Vital Signs and I&O's Vital Signs: Temperature 98.9 F Pulse Rate [Left Radial] 86 Pulse Rate 82 Respiratory Rate 20 Blood Pressure [Left Arm] 147/67 O2 Sat by Pulse Oximetry 98 Intake and Output: Intake & Output 03/26/18 03/27/18 03/28/18 03/29/18 11:59 11:59 11:59 11:59 Intake Total 2049 2863 / 2863 2029 Balance 2049 2863 / 2863 2029 - Physical Exam Oriented: Normal Eyes: Normal Ear: Normal Nose: Normal Throat: Normal Respiratory: Generalized, Wheezes Cardiovascular: Normal. negative: S3, S4, Murmur : Normal Auscultation: Bowel Sounds: Normal Palpation: Normal Tenderness: Normal Skin: Normal Musculoskeletal: Normal Psychiatric: Normal Mood Description: Calm Affect: Normal Speech Pattern: Clear, Appropriate - Laboratory and Diagnostics Result Diagrams: 03/29/18 04:00 03/29/18 04:00 Labs: 03/25/18 05:45 Urine,Clean Catch Urine Culture - Final 03/24/18 17:22 Blood Blood Culture - Preliminary 03/24/18 17:21 Blood Blood Culture - Preliminary 03/24/18 17:55 Sputum - Expectorated Sputum Sputum Culture - Final 03/24/18 17:55 Sputum - Expectorated Sputum - Final Laboratory WBC 49.8 X10^3/uL (3.6-10.0) H* 03/29/18 04:00 RBC 2.63 X10^6/uL (3.5-5.4) L 03/29/18 04:00 Hgb 7.9 g/dL (12.0-16.0) L 03/29/18 04:00 Hct 24.0 % (36.0-47.0) L 03/29/18 04:00 MCV 91.2 fL (80.0-100.0) 03/29/18 04:00 MCH 29.9 pg (27.0-34.0) 03/29/18 04:00 MCHC 32.8 g/dL (33.0-35.0) L 03/29/18 04:00 RDW 16.2 % (11.6-16.5) 03/29/18 04:00 Plt Count 206 X10^3/uL (150.0-450.0) 03/29/18 04:00 Plt Count Comment Adequate (ADEQUATE) 03/26/18 05:47 MPV 10.0 fL (7.4-11.0) 03/29/18 04:00 Neut % (Auto) 8.4 % (42.0-75.0) L 03/29/18 04:00 Lymph % (Auto) 89.1 % (21.0-51.0) H 03/29/18 04:00 [place] % (Auto) 2.2 % (0.0-13.0) 03/29/18 04:00 Eos % (Auto) 0.1 % (0.9-2.9) L 03/29/18 04:00 Baso % (Auto) 0.2 % (0.2-1.0) 03/29/18 04:00 Neut # (Auto) 4.2 x10^3/uL (2.2-4.8) 03/29/18 04:00 Lymph # (Auto) 44.4 X10^3/uL (1.3-2.9) H 03/29/18 04:00 [place] # (Auto) 1.1 x10^3/uL (0.3-0.8) H 03/29/18 04:00 Eos # (Auto) 0.0 x10^3/uL (0.0-0.2) 03/29/18 04:00 Baso # (Auto) 0.1 X10^3/uL (0.0-0.1) 03/29/18 04:00 Absolute Nucleated RBC 0.2 /100WBC 03/29/18 04:00 Total Counted 100 03/26/18 05:47 Neutrophils % (Manual) 12 % (39-76) L 03/26/18 05:47 Band Neutrophils % 8 % (0-10) 03/26/18 05:47 Lymphocytes % (Manual) 65 % (13-43) H 03/26/18 05:47 Monocytes % (Manual) 6 % (4-9) 03/25/18 05:55 Metamyelocytes % 11 03/24/18 17:21 Myelocytes % 19 03/24/18 17:21 Atypical Lymphocytes 15 03/26/18 05:47 Blast Cells 8 (-1) H 03/24/18 17:21 Smudge Cells Rare 03/25/18 05:55 Plt Morphology Comment Normal (NORMAL) 03/26/18 05:47 RBC Morphology Abnormal (NORMAL) A 03/26/18 05:47 Hypochromasia Slight A 03/26/18 05:47 Macrocytosis 1+ A 03/24/18 17:21 Sodium 135 mmol/L (136-145) L 03/29/18 04:00 Corrected Sodium 136 mmol/L (136-145) 03/29/18 04:00 Potassium 3.9 mmol/L (3.5-5.1) 03/29/18 04:00 Chloride 101 mmol/L (98-107) 03/29/18 04:00 Carbon Dioxide 26.6 mmol/L (21-32) 03/29/18 04:00 BUN 17 mg/dL (7-18) 03/29/18 04:00 Creatinine 1.18 mg/dL (0.55-1.02) H 03/29/18 04:00 Est GFR (MDRD) Af Amer 56 (>60) L 03/29/18 04:00 Est GFR (MDRD) Non-Af 46 (>60) L 03/29/18 04:00 Glucose 125 mg/dL (65-99) H 03/29/18 04:00 Lactic Acid 0.6 mmol/L (0.4-2.0) 03/24/18 18:10 Uric Acid 7.9 mg/dL (2.6-6.0) H 03/25/18 05:55 Calcium 9.1 mg/dL (8.5-10.1) 03/29/18 04:00 Corrected Calcium 10.4 mg/dL (8.5-10.1) H 03/29/18 04:00 Total Bilirubin 0.10 mg/dL (0.2-1.0) L 03/29/18 04:00 AST 17 Units/L (15-37) 03/29/18 04:00 ALT 18 Units/L (12-78) 03/29/18 04:00 Alkaline Phosphatase 75 Units/L (46-116) 03/29/18 04:00 Total Protein 6.1 g/dL (6.4-8.2) L 03/29/18 04:00 Albumin 2.4 g/dL (3.4-5.0) L 03/29/18 04:00 Globulin 3.7 g/dL (2.5-4.5) 03/29/18 04:00 Albumin/Globulin Ratio 0.6 Ratio (1.1-2.1) L 03/29/18 04:00 Specimen Type Catherized urine 03/25/18 05:45 Urine Color Yellow (YELLOW) 03/25/18 05:45 Urine Appearance Clear (CLEAR) 03/25/18 05:45 Urine pH 5.0 (5.0 - 8.0) 03/25/18 05:45 Ur Specific [place] 1.015 (1.000-1.030) 03/25/18 05:45 Urine Protein 2+ (NEGATIVE) 03/25/18 05:45 Urine Glucose (UA) Negative (NEGATIVE) 03/25/18 05:45 Urine Ketones Negative (NEGATIVE) 03/25/18 05:45 Urine Occult Blood 3+ (NEGATIVE) 03/25/18 05:45 Urine Nitrite Negative (NEGATIVE) 03/25/18 05:45 Urine Bilirubin Negative (NEGATIVE) 03/25/18 05:45 Urine Urobilinogen Normal (NORMAL) 03/25/18 05:45 Ur Leukocyte Esterase Negative (NEGATIVE) 03/25/18 05:45 Urine RBC 3-5 /HPF (NONE SEEN) 03/25/18 05:45 Urine WBC 0-2 /HPF (NONE SEEN) 03/25/18 05:45 Ur Squamous Epith Cells Rare /HPF (NEGATIVE) 03/25/18 05:45 Amorphous Sediment Trace /HPF (NEGATIVE) 03/25/18 05:45 Urine Bacteria Trace /HPF (NEGATIVE) 03/25/18 05:45 Ur Culture Indicated? Yes/culture set up 03/25/18 05:45 - Plan (1) Bronchopneumonia Status: Acute Plan: CONTINUE IV ANTIBIOTICS, CONTINUE SUPPLEMENTAL OXYGEN AND RESPIRATORY TX, TORADOL 30MG IV Q6H PRN, CONTINUE TO MONITOR (2) Yeast infection Status: Acute Plan: DIFLUCAN 200MG IV DAILY (3) History of leukemia Status: Chronic (4) Hypertension Status: Chronic Qualifiers: Hypertension type: essential hypertension Qualified Code(s): I10 - Essential (primary) hypertension Plan: CONTINUE NORVASC, CONTINUE COZAAR, CONTINUE TO MONITOR (5) Hyperlipidemia Status: Chronic Qualifiers: Hyperlipidemia type: mixed hyperlipidemia Qualified Code(s): E78.2 - Mixed hyperlipidemia Plan: CONTINUE ZOCOR, CONTINUE TO MONITOR (6) GERD (gastroesophageal reflux disease) Status: Chronic Qualifiers: Esophagitis presence: esophagitis presence not specified Qualified Code(s) : K21.9 - Gastro-esophageal reflux disease without esophagitis Plan: CONTINUE PEPCID, CONTINUE TO MONITOR
[2018-03-29] MEDS: XOPENEX 1.25 MG/3 ML NEBULE NEB SCH (09:26)
[2018-03-29 11:29] VITALS: BP 151/66
--- NOTE | 2018-04-19 14:50 | DR.CARTERD ---
- Discharge Summary for: Discharge Summary for Date of:: 03/29/18 - Admission Date Date of Admission: 03/24/18 - Admission Diagnoses Admission Diagnosis: (1) Bronchopneumonia (2) Yeast infection (3) History of leukemia (4) Hypertension (5) Hyperlipidemia (6) GERD (gastroesophageal reflux disease) - Discharge Date Discharge Date: 03/29/18 - Discharge Diagnoses Discharge Diagnosis: (1) Bronchopneumonia (2) Yeast infection (3) History of leukemia (4) Hypertension (5) Hyperlipidemia (6) GERD (gastroesophageal reflux disease) - Hospital Course Hospital Course: DAY ONE, MS. MCCRACKEN IS AN 87 YEAR OLD PATIENT OF OURS WHO PRESENTED TO THE HOSPITAL A DIRECT ADMISSION FROM [facility]. SHE PRESENTED WITH COMPLAINTS OF AN INTERMITTENT, PRODUCTIVE COUGH THAT BEGAN FOUR DAYS PRIOR. SPUTUM WAS THICK AND YELLOW. ON AUSCULTATION, LUNG WERE DIMINISHED THROUGHOUT. ON ARRIVAL, VITALS WERE 98.2-100-20-96%RA-151/70. ABNORMAL LABS WERE: WBC 50.3, RBC 2.98, HGB 9.0, HCT 27.2, SODIUM 134, CORRECTED SODIUM 134, CHL 96, BUN 35, CREAT 1.37, GLUCOSE 116, AST 13, ALBUMIN 3.0. BLOOD CULTURES X 2 OBTAINED ALONG WITH A SPUTUM CULTURE. CHEST XRAY REPORTED NO ACUTE CARDIOPULMONARY PROCESS. PATIENT HAD A HISTORY SIGNIFICANT FOR LEUKEMIA. SHE WAS STARTED ON PNEUMONIA PROTOCOL WITH LEVAQUIN, NEB TREATMENTS, SUPPLEMENTAL OXYGEN, AND IV FLUIDS. WE CONTINUED TO MONITOR. DAY TWO, MS. MCCRACKEN WAS ADMITTED FOR BRONCHOPNEUMONIA. SHE WAS ALERT AND ORIENTED , LYING IN BED ON MORNING ROUNDS. SHE CONTINUED WITH COMPLAINTS OF SHORTNESS OF BREATH AND A PRODUCTIVE COUGH. ON EXAMINATION, HEART WAS REGULAR IN RATE AND RHYTHM. BILATERAL LUNGS WERE NOTED WITH SCATTERED WHEEZING THROUGHOUT. ABDOMEN WAS ROUND, SOFT, AND NON-TENDER WITH NORMAL BOWEL SOUNDS NOTED IN ALL QUADRANTS. HER VITALS WERE 99.0-95-22-92%-151/76. LABS WERE OBTAINED. ABNORMAL LAB VALUES INCLUDED THE FOLLOWING: WBC 39.8, RBC 2.83, HGB 8., HCT 25.5, SODIUM 134, CHLORIDE 97, BUN 30, CREATININE 1.18, GLUCOSE 111, URIC ACID 7.8, AST 14, ALBUMIN 2.6. A URINALYSIS WAS OBTAINED AND REVEALED WBC 0-2, RBC 3-5, BACTERIA TRACE, LEUKOCYTES NEGATIVE, OCCULT BLOOD 3+, PROTEIN 2+. A URINE CULTURE WAS SET UP. BLOOD CULTURES AND A SPUTUM CULTURE WAS PENDING. 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 WE OBTAINED A PERIPHERAL SMEAR AND STARTED TORADOL 30MG IV Q6H. WE CONTINUED WITH IV ANTIBIOTICS AND RESPIRATORY TREATMENTS. DAY THREE, SHE WAS ALERT AND ORIENTED, LYING IN BED ON MORNING ROUNDS. SHE CONTINUED WITH COMPLAINTS OF SHORTNESS OF BREATH AND A PRODUCTIVE COUGH. SHE ALSO REPORTED VAGINAL ITCHING. SHE REPORTED THAT SHE OFTEN GOT A YEAST INFECTION WHEN ON ANTIBIOTICS. ON EXAMINATION, HEART WAS REGULAR IN RATE AND RHYTHM. BILATERAL LUNGS WERE NOTED WITH SCATTERED WHEEZING THROUGHOUT. ABDOMEN WAS ROUND, SOFT, AND NON-TENDER WITH NORMAL BOWEL SOUNDS NOTED IN ALL QUADRANTS. HER VITALS WERE 97.7-85-20-97%-121/56. LABS WERE OBTAINED. ABNORMAL LAB VALUES INCLUDED THE FOLLOWING: WBC 47.0-RBC 2.71, HGB 8.0, HCT 24.6, SODIUM 132, BUN 29, CREATININE 1.29, GLUCOSE 108, TOTAL PROTEIN 6.3, ALBUMIN 2.4. CHEST XRAY REVEALED NO CHANGES SINCE THE DAY BEFORE. WE CONTINUED WITH IV ANTIBIOTICS AND RESPIRATORY TREATMENTS. WE STARTED DIFLUCAN 200MG IV DAILY. DAY FOUR, SHE CONTINUED WITH COMPLAINTS OF SHORTNESS OF BREATH AND A PRODUCTIVE COUGH. ON EXAMINATION, HEART WAS REGULAR IN RATE AND RHYTHM. BILATERAL LUNGS WERE NOTED WITH SCATTERED WHEEZING THROUGHOUT. ABDOMEN WAS ROUND, SOFT, AND NON- TENDER WITH NORMAL BOWEL SOUNDS NOTED IN ALL QUADRANTS. HER VITALS WERE 98.5-87- 20-96-152/68. LABS WERE OBTAINED. ABNORMAL LAB VALUES INCLUDED THE FOLLOWING: WBC 39.6, RBC 2.67, HGB 7.9, HCT 24.0, SODIUM 133, BUN 32, CREATININE 1.29, GLUCOSE 100, ALBUIN 2.5. CHEST XRAY REVEALED MILD VASCULAR CONGESTION AND SUSPECT CHRONIC PERIBRONCHIAL THICKENING. WE CONTINUED WITH IV ANTIBIOTICS AND RESPIRATORY TREATMENTS. DAY FIVE, PATIENT WAS ALERT AND ORIENTED, LYING IN BED ON MORNING ROUNDS. SHE CONTINUED WITH COMPLAINTS OF SHORTNESS OF BREATH AND A PRODUCTIVE COUGH. SHE REPORTED THAT SHORTNESS OF BREATH HAD INCREASED SINCE THE DAY BEFORE. ON EXAMINATION, HEART WAS REGULAR IN RATE AND RHYTHM. BILATERAL LUNGS WERE NOTED WITH SCATTERED WHEEZING THROUGHOUT. ABDOMEN WAS ROUND, SOFT, AND NON-TENDER WITH NORMAL BOWEL SOUNDS NOTED IN ALL QUADRANTS. HER VITALS WERE 98.0-82-22-95%- 140/66. LABS WERE OBTAINED. ABNORMAL LAB VALUES INCLUDED THE FOLLOWING: WBC 45.4 , RBC 2.82, HGB 8.4, HCT 25.74, BUN 19, CREATININE 1.05, GFR 53, TOTAL PROTEIN 6.2, ALBUMIN 2.5. CHEST XRAY REVEALED NO CHANGES SINCE THE DAY BEFORE. WE CONTINUED WITH IV ANTIBIOTICS AND RESPIRATORY TREATMENTS. WE STARTED LASIX 20MG IV Q12H X 2 DOSES. DAY SIX, PATIENT WAS DOING BETTER. NO ACUTE DISTRESS WAS NOTED. SHE DENIED SHORTNESS OF BREATH AND REPORTED SHE FELT BETTER. LUNGS WERE NOTED WITH SCATTERED RHONCHI TO UPPER LOBES ON AUSCULTATION. VITAL SIGNS STABLE. LABS WNL. ALL CULTURES WERE NEGATIVE FOR GROWTH. WE PLANNED FOR DISCHARGE. INSTRUCTIONS FOR MEDICATIONS AND FOLLOW UP WERE DISCUSSED WITH PATIENT AND FAMILY, BOTH VOICED UNDERSTANDING. PATIENT DISCHARGED TO [facility] IN STABLE CONDITION WITH STAFF. - Discharge Medications Discharge Medications: Home Medication List amlodipine [Norvasc] 5 mg PO DAILY 03/24/18 [History] chlorthalidone 25 mg PO DAILY 03/24/18 [History] dextromethorphan HBr 15 mg PO BID 03/24/18 [History] diclofenac sodium [Voltaren] 2 g TOPICAL TID 03/24/18 [History] docusate sodium [Colace] 100 mg PO BID 03/24/18 [History] famotidine [Pepcid] 40 mg PO HS 03/24/18 [History] iron-folic acid-mv, min cmb#15 [Hemocyte-Plus] 1 cap PO QAM 03/24/18 [History] loratadine [Claritin] 10 mg PO DAILY 03/24/18 [History] losartan [Cozaar] 50 mg PO BID 03/24/18 [History] ondansetron HCl [Zofran] 4 mg PO Q4H PRN 03/24/18 [History] polyethylene glycol 3350 [Miralax] 17 g PO BID 03/24/18 [History] simvastatin [Zocor] 20 mg PO HS 03/24/18 [History] tramadol [Ultram] 50 mg PO Q6H PRN 03/24/18 [History] benzonatate [Tessalon Perles] 200 mg PO TID PRN #30 cap 03/29/18 [Rx] fluconazole [Diflucan] 100 mg PO DAILY #7 tab 03/29/18 [Rx] levalbuterol HCl [Xopenex] 0.125 mg/kg INHALATION Q2H PRN #50 ml 03/29/18 [Rx] levofloxacin [Levaquin] 500 mg PO DAILY #10 tab 03/29/18 [Rx] Prescriptions: benzonatate [Tessalon Perles] Alex Patrick fluconazole [Diflucan] Alex Patrick levalbuterol HCl [Xopenex] Alex Patrick levofloxacin [Levaquin] Alex Patrick - Discharge Disposition Discharge Disposition: WE WILL FOLLOW UP WITH PATIENT IN ONE WEEK AT THE HALF-WAY.
== END 2018-03-29 11:33 | DRG 195 ==
LOC: MED/SURG → OBSVTOIN 16:52
PROVIDERS: ADMIT Internal Medicine; ATTEND Internal Medicine
DX: J18.0 Bronchopneumonia, unspecified organism; Z95.0 Presence of cardiac pacemaker; B37.3 Candidiasis of vulva and vagina; Z85.6 Personal history of leukemia; I10 Essential (primary) hypertension; E78.2 Mixed hyperlipidemia; R26.89 Other abnormalities of gait and mobility; R06.02 Shortness of breath
CPT/HCPCS: 36415; 71010; 71020; 71045; 71046; 80053; 81001; 83605; 84550; 85025; 85060; 87040; 87070; 87086; 87205; 94640; 94760; 97163; 97167; 97535; A4218; A4222; J1450; J1885; J1940; J1956

== ENCOUNTER 2018-12-11 19:40 | Inpatient (IN) ==
[~2018-12-11 19:40] MED LIST: PROVENTIL NEB TX 0.083% 2.5MG/ 3ML ONE
[2018-12-11 21:44] LABS: ALBUMIN 2.8 g/dL (3.4-5.0); CARBON DIOXIDE 27.5 mmol/L (21-32); CREATININE 1.62 mg/dL (0.55-1.02); TOTAL PROTEIN 7.2 g/dL (6.4-8.2)
[2018-12-11 22:00] LABS: BASOPHILS # (AUTO) 0.1 X10^3/uL (0.0-0.1); BASOPHILS % (AUTO) 0.1 % (0.2-1.0); HEMATOCRIT 25.6 % (36.0-47.0); HEMOGLOBIN 8.1 g/dL (12.0-16.0); LYMPHOCYTES # (AUTO) 62.3 X10^3/uL (1.3-2.9); LYMPHOCYTES % (AUTO) 89.2 % (21.0-51.0); MEAN CORPUSCULAR HEMOGLOBIN 30.3 pg (27.0-34.0); MEAN CORPUSCULAR HGB CONC 31.8 g/dL (33.0-35.0); MEAN CORPUSCULAR VOLUME 95.5 fL (80.0-100.0); MEAN PLATELET VOLUME 10.3 fL (7.4-11.0); MONOCYTES # (AUTO) 0.2 x10^3/uL (0.3-0.8); MONOCYTES % (AUTO) 0.4 % (0.0-13.0); NEUTROPHILS # (AUTO) 7.2 x10^3/uL (2.2-4.8); NEUTROPHILS % (AUTO) 10.3 % (42.0-75.0); PLATELET COUNT 208 X10^3/uL (150.0-450.0); RED BLOOD COUNT 2.68 X10^6/uL (3.5-5.4); RED CELL DISTRIBUTION WIDTH 14.6 % (11.6-16.5)
[2018-12-11 22:18] LABS: WHITE BLOOD COUNT 69.8 X10^3/uL (3.6-10.0)
[2018-12-11 22:20] LABS: ANISOCYTOSIS 1+; HYPOCHROMASIA 1+; PLATELET MORPHOLOGY COMMENT NORMAL (NORMAL); SMUDGE CELLS PRESENT
--- NOTE | 2018-12-11 22:55 | CT ---
HISTORY: Left-sided weakness. Study: CT brain without contrast. Dose reduction techniques including Automated Exposure Control (AEC) and adjustment of mA and kV were utilized. Comparison: 12/10/2018. Technique: Multiple axial images of the brain were obtained from the skull base to the vertex without administration of IV contrast. Findings: There has been interval development of vasogenic edema within the right frontoparietal region with loss of sulcation and evans-white differentiation compatible with an acute to subacute infarct. There is no significant mass effect or associated hemorrhage. There is no midline shift or evidence of herniation. No extra-axial fluid collections are seen. Symmetric enlargement of the lateral ventricles is unchanged. IMPRESSION: Findings compatible with an acute infarct involving the frontoparietal region on the right. There is no associated hemorrhage. MR of the brain may be of further diagnostic benefit and should be considered for further evaluation as clinically indicated. Reported By:
[2018-12-11] MEDS: NS 1000 ML 1,000 ML IV SCH (23:00)
[2018-12-12] MEDS: PLAVIX PO SCH ×2 (00:03→13:12)
[2018-12-12 06:00] LABS: BASOPHILS # (AUTO) 0.1 X10^3/uL (0.0-0.1); BASOPHILS % (AUTO) 0.1 % (0.2-1.0); HEMATOCRIT 22.8 % (36.0-47.0); HEMOGLOBIN 7.4 g/dL (12.0-16.0); LYMPHOCYTES # (AUTO) 56.3 X10^3/uL (1.3-2.9); LYMPHOCYTES % (AUTO) 89.3 % (21.0-51.0); MEAN CORPUSCULAR HEMOGLOBIN 30.9 pg (27.0-34.0); MEAN CORPUSCULAR HGB CONC 32.5 g/dL (33.0-35.0); MEAN CORPUSCULAR VOLUME 95.1 fL (80.0-100.0); MEAN PLATELET VOLUME 10.4 fL (7.4-11.0); MONOCYTES # (AUTO) 0.3 x10^3/uL (0.3-0.8); MONOCYTES % (AUTO) 0.5 % (0.0-13.0); NEUTROPHILS # (AUTO) 6.3 x10^3/uL (2.2-4.8); NEUTROPHILS % (AUTO) 10.1 % (42.0-75.0); PLATELET COUNT 194 X10^3/uL (150.0-450.0); RED CELL DISTRIBUTION WIDTH 14.9 % (11.6-16.5)
[2018-12-12 06:05] LABS: ALANINE AMINOTRANSFERASE 13 Units/L (12-78); ALBUMIN 2.5 g/dL (3.4-5.0); ALKALINE PHOSPHATASE 65 Units/L (46-116); ASPARTATE AMINO TRANSFERASE 15 Units/L (15-37); BLOOD UREA NITROGEN 36 mg/dL (7-18); CALCIUM 9.6 mg/dL (8.5-10.1); CARBON DIOXIDE 25.2 mmol/L (21-32); CHLORIDE 101 mmol/L (98-107); COR CA(FOR HYPOALB) 10.8 mg/dL (8.5-10.1); CREATININE 1.36 mg/dL (0.55-1.02); SODIUM 136 mmol/L (136-145); TOTAL PROTEIN 6.7 g/dL (6.4-8.2); eGFR NON BLACK RACES 39 (>60)
[2018-12-12 06:13] LABS: WHITE BLOOD COUNT 63.1 X10^3/uL (3.6-10.0)
[2018-12-12 06:28] LABS: BAND NEUTROPHILS % 1 % (0-10); METAMYELOCYTES % 3
[2018-12-12 06:29] LABS: PLATELET MORPHOLOGY COMMENT NORMAL (NORMAL)
[2018-12-12 06:32] LABS: ANISOCYTOSIS 1+; HYPOCHROMASIA 1+
[2018-12-12 06:33] LABS: MICROCYTOSIS SLIGHT
[2018-12-12 06:35] LABS: SMUDGE CELLS PRESENT
[2018-12-12] MEDS ORDERED: ASPIRIN EC 81 MG PO SCH (09:00)
[2018-12-12 09:46] VITALS: BMI 25.7
[2018-12-12] MEDS: NS 1000 ML 1,000 ML IV SCH ×3 (09:59→14:46)
[2018-12-12] MEDS ORDERED: ULTRAM PO PRN (12:48)
[2018-12-12] MEDS ORDERED: ZOFRAN TAB 4 MG PO PRN (12:48)
[2018-12-12] MEDS ORDERED: NORVASC TAB 5 MG PO SCH (13:00)
[2018-12-12] MEDS ORDERED: CLARITIN PO SCH (13:00)
[2018-12-12] MEDS ORDERED: PEPCID TAB 20 MG PO SCH (13:00)
[2018-12-12] MEDS ORDERED: COZAAR PO SCH (13:00)
[2018-12-12] MEDS ORDERED: COLACE CAP 100 MG PO SCH (13:00)
[2018-12-12] MEDS ORDERED: HEMOCYTE-PLUS PO SCH (13:00)
[2018-12-12] MEDS ORDERED: VOLTAREN 1 % GEL MULTI DOSE TUBE TOP SCH (14:00)
[2018-12-12] MEDS: LOVENOX INJ 40 MG SYR SC SCH (14:43)
[2018-12-12] MEDS: ASPIRIN 81 MG CHEWTAB PO SCH (14:44)
[2018-12-12] MEDS ORDERED: VOLTAREN 1 % GEL MULTI DOSE TUBE TOP PRN (15:00)
--- NOTE | 2018-12-12 15:39 | DR.H&P ---
H&P - History & Physical for Day of: H&P Date: 12/11/18 - Chief Complaint Chief Complaint: LEFT SIDE WEAKNESS, AMS - History of Present Illness History of Present Illness: 88[facility] ER ADMISSION WITH NEW ONSET CVA CONFIRMED ON CT. PT HAS ACUTE LEFT SIDE WEAKNESS WITH DIFFICULTY SWALLOWING LIQUIDS. PT WAS SEEN IN ER FOR EVALUATION ONE DAY AGO. PT HAD CRITICAL HIGH WBC, PT REPORTS SHE WAS TOLD SHE HAD LEUKEMIA IN THE PAST. PT HAS SKIN GRAFT WOUND TO LEFT THIGHT AND WOUND TO LLE WITH DRAINAGE AND ODOR. PT HAS HTN, OA, HYPERLIPIDEMIA. PT ADMITTED FOR TREATMENT AND EVALUATION OF ACUTE CVA AND WOUND INFECTION, R/O SEPSIS. - Past Medical History Past Medical History: CO, Coronary Artery Disease, Hypertension, Dyslipidemia, Renal Disease, Dementia, Anemia, GERD, Arthritis, CHF Additional Medical History: TIA, DEMENTIA, CONSTIPATION, UTIs, MUSCLE WEAKNESS, LEUKEMIA - Past Surgical History Surgical History: Other Additional Surgical History: PACEMAKER - Family History Family Medical History: Coronary Artery Disease, Hypertension - Social History Does patient currently use any type of tobacco product: No Have you used tobacco products in the last 12 months: No Type of Tobacco Use: None Does any household member use tobacco: No Alcohol Use: None Drug Use: None - Medications Home Medications: codeine Allergy (Severe, Verified 03/24/18 17:29) - Review of Systems Constitutional: Fever, Weakness Eyes: No Symptoms Reported ENT: No Symptoms Reported Respiratory: No Symptoms Reported Cardiovascular: No Symptoms Reported Gastrointestinal: No Symptoms Reported Genitourinary: No Symptoms Reported Musculoskeletal: Leg Pain Skin: Wound Neurological: Weakness, Numbness - Physical Exam Vital Signs: Temperature 100.0 F Pulse Rate [Left Brachial] 84 Respiratory Rate 18 Blood Pressure [Right Arm] 153/66 Blood Pressure [Left Arm] 151/66 Blood Pressure 170/78 O2 Sat by Pulse Oximetry 93 Oriented: Person Eyes: Normal Ear: Normal Nose: Normal Throat: Normal Respiratory: RLL Diminished, LLL Diminished : Normal Auscultation: Bowel Sounds: Normal Palpation: Normal Tenderness: Normal Skin: Decreased Turgur, Red, Tender, Wound (LEFT THIGH, LLE) Musculoskeletal: Right, Left, Leg, Tender, Motor Deficit Psychiatric: Depression Mood Description: Depressed Speech Pattern: Clear, Appropriate, Delayed, Slurred (VERY MILD) - Assessment/Plan (1) Acute CVA (cerebrovascular accident) Status: Acute Plan: ADMIT, CT HEAD ON ADMISSION. BP AND LIPID CONTROL, ASPIRIN, STATIN PLAVIX. PT/OT CONSULT, SWALLOW EVALUATION. VERIFY HOME MEDICATION, WOUND CULTURE. WOUND CARE, BLOOD CULTURES, PAIN CONTROL (2) Cellulitis of leg, left Status: Acute (3) History of leukemia Status: Chronic (4) GERD (gastroesophageal reflux disease) Qualifiers: Esophagitis presence: esophagitis presence not specified Qualified Code(s): K21.9 - Gastro-esophageal reflux disease without esophagitis Status: Chronic - Allergies Allergies/Adverse Reactions: Allergies Allergy/AdvReac Type Severity Reaction Status Date / Time codeine Allergy Severe Verified 03/24/18 17:29
[2018-12-12] MEDS ORDERED: ZOCOR TAB 20 MG PO SCH (21:00)
[2018-12-13] MEDS ORDERED: CLEOCIN 300 MG IV PREMIX 600 MG/100 ML BAG IV ONE ×2 (00:30→05:40)
[2018-12-13] MEDS ORDERED: MORPHINE SULFATE INJ 2 MG INJ ONE (01:01)
[2018-12-13] MEDS: MORPHINE SULFATE INJ 2 MG INJ IVP PRN (01:07)
[2018-12-13 05:39] LABS: BILIRUBIN,URINE NEGATIVE (NEGATIVE); BLOOD/HEMOGLOBIN,URINE 1+ (NEGATIVE); GLUCOSE, URINE NEGATIVE (NEGATIVE); KETONES,URINE NEGATIVE (NEGATIVE); LEUKOCYTE ESTERASE ,URINE NEGATIVE (NEGATIVE); NITRITES,URINE NEGATIVE (NEGATIVE); PROTEIN,URINE 1+ (NEGATIVE); UROBILINOGEN,URINE NORMAL (NORMAL)
[2018-12-13 05:51] LABS: APPEARANCE,URINE CLEAR (CLEAR); COLOR,URINE PALE YELLOW (YELLOW)
[2018-12-13 05:52] LABS: BACTERIA,URINE NEGATIVE /HPF (NEGATIVE); RBC,URINE 0-2 /HPF (NONE SEEN); SQUAMOUS EPITHELIAL CELL,UR RARE /HPF (NEGATIVE)
[2018-12-13] MEDS: CLEOCIN 600 MG IV PREMIX 600 MG/50 ML BAG IV SCH ×2 (05:58)
[2018-12-13 06:02] LABS: ALANINE AMINOTRANSFERASE 14 Units/L (12-78); ALBUMIN 2.6 g/dL (3.4-5.0); ALKALINE PHOSPHATASE 66 Units/L (46-116); ASPARTATE AMINO TRANSFERASE 19 Units/L (15-37); BLOOD UREA NITROGEN 32 mg/dL (7-18); CALCIUM 9.8 mg/dL (8.5-10.1); CHLORIDE 100 mmol/L (98-107); COR CA(FOR HYPOALB) 10.9 mg/dL (8.5-10.1); SODIUM 136 mmol/L (136-145); eGFR NON BLACK RACES 50 (>60)
[2018-12-13 06:07] LABS: BASOPHILS # (AUTO) 0.1 X10^3/uL (0.0-0.1); BASOPHILS % (AUTO) 0.1 % (0.2-1.0); EOSINOPHILS # (AUTO) 0.1 x10^3/uL (0.0-0.2); EOSINOPHILS % (AUTO) 0.1 % (0.9-2.9); HEMATOCRIT 24.6 % (36.0-47.0); HEMOGLOBIN 7.9 g/dL (12.0-16.0); LYMPHOCYTES # (AUTO) 60.3 X10^3/uL (1.3-2.9); LYMPHOCYTES % (AUTO) 89.5 % (21.0-51.0); MEAN CORPUSCULAR HEMOGLOBIN 30.5 pg (27.0-34.0); MEAN CORPUSCULAR VOLUME 95.3 fL (80.0-100.0); MEAN PLATELET VOLUME 10.2 fL (7.4-11.0); MONOCYTES # (AUTO) 0.2 x10^3/uL (0.3-0.8); MONOCYTES % (AUTO) 0.3 % (0.0-13.0); NEUTROPHILS # (AUTO) 6.8 x10^3/uL (2.2-4.8); PLATELET COUNT 217 X10^3/uL (150.0-450.0); RED BLOOD COUNT 2.58 X10^6/uL (3.5-5.4); RED CELL DISTRIBUTION WIDTH 14.7 % (11.6-16.5)
[2018-12-13 06:20] LABS: WHITE BLOOD COUNT 67.4 X10^3/uL (3.6-10.0)
[2018-12-13] MEDS: ASPIRIN 81 MG CHEWTAB PO SCH (08:26)
[2018-12-13] MEDS: LOVENOX INJ 40 MG SYR SC SCH (08:26)
--- NOTE | 2018-12-13 08:48 | VAS ---
History: TIA and left-sided weakness Study: Carotid duplex ultrasound Comparison: None Findings: Images show a relatively flat calcified plaque in the right carotid bulb and some mild plaque also in the left carotid bulb. Peak systolic velocity in the right internal carotid artery is 151 centimeters/second and in the distal common carotid artery is 85 for a ratio of 1.7. Peak systolic velocity in the left internal carotid artery is 119 centimeters/second and in the distal common carotid artery is 88 for a ratio of 1.3 There is antegrade flow in the vertebral arteries. Impression: No evidence for significant carotid stenosis Reported By:
[2018-12-13] MEDS ORDERED: PHARMACY CONSULT - DOSE _____ XX SCH (11:00)
--- NOTE | 2018-12-13 13:28 | DR.PROGNOT ---
Hospital Progress Notes - Progress Note for Day of: Progress Note Date: 12/13/18 - Chief Complaint Chief Complaint: still having pain and redness Lt leg . less drainage Lt ankle ulcer . - Past Medical Family Social History Past Med/Fam/Surg Hx: No changes since H&P Allergies: Allergies codeine Allergy (Severe, Verified 03/24/18 17:29) - Review Of Systems ROS: No change since H&P - Vital Signs Vital Signs: Temperature 99.1 F Pulse Rate [Left Brachial] 86 Respiratory Rate 22 Blood Pressure [Right Arm] 147/66 Blood Pressure [Left Arm] 164/72 Blood Pressure 170/78 O2 Sat by Pulse Oximetry 93 - Physical Exam Oriented: Normal, Person Eyes: Normal Ear: Normal Nose: Normal Throat: Normal : Normal GI:Auscultation: Normal GI:Palpation: Normal GI: Tenderness: Normal Skin: Decreased Turgur, Red, Tender, Wound (4x5cm open wound Lt anterior thigh , 4x5cm grafted wound above Lt ankle taking about 50% or less with purulent draiage , tender with sorrounding erythema ) Musculoskeletal: Right, Left, Leg, Tender, Motor Deficit Psychiatric: Depression Mood Description: Calm Speech Pattern: Appropriate, Slurred - Laboratory and Diagnostics Result Diagrams: 12/13/18 05:22 12/13/18 05:22 Labs: Laboratory WBC 67.4 X10^3/uL (3.6-10.0) H* 12/13/18 05:22 RBC 2.58 X10^6/uL (3.5-5.4) L 12/13/18 05:22 Hgb 7.9 g/dL (12.0-16.0) L 12/13/18 05:22 Hct 24.6 % (36.0-47.0) L 12/13/18 05:22 MCV 95.3 fL (80.0-100.0) 12/13/18 05:22 MCH 30.5 pg (27.0-34.0) 12/13/18 05:22 MCHC 32.0 g/dL (33.0-35.0) L 12/13/18 05:22 RDW 14.7 % (11.6-16.5) 12/13/18 05:22 Plt Count 217 X10^3/uL (150.0-450.0) 12/13/18 05:22 Plt Count Comment Adequate (ADEQUATE) 12/12/18 04:45 MPV 10.2 fL (7.4-11.0) 12/13/18 05:22 Neut % (Auto) 10.0 % (42.0-75.0) L 12/13/18 05:22 Lymph % (Auto) 89.5 % (21.0-51.0) H 12/13/18 05:22 [place] % (Auto) 0.3 % (0.0-13.0) 12/13/18 05:22 Eos % (Auto) 0.1 % (0.9-2.9) L 12/13/18 05:22 Baso % (Auto) 0.1 % (0.2-1.0) L 12/13/18 05:22 Neut # (Auto) 6.8 x10^3/uL (2.2-4.8) H 12/13/18 05:22 Lymph # (Auto) 60.3 X10^3/uL (1.3-2.9) H 12/13/18 05:22 [place] # (Auto) 0.2 x10^3/uL (0.3-0.8) L 12/13/18 05:22 Eos # (Auto) 0.1 x10^3/uL (0.0-0.2) 12/13/18 05:22 Baso # (Auto) 0.1 X10^3/uL (0.0-0.1) 12/13/18 05:22 Absolute Nucleated RBC 0.1 /100WBC 12/13/18 05:22 Total Counted 100 12/12/18 04:45 Neutrophils % (Manual) 11 % (39-76) L 12/12/18 04:45 Band Neutrophils % 1 % (0-10) 12/12/18 04:45 Lymphocytes % (Manual) 78 % (13-43) H 12/12/18 04:45 Monocytes % (Manual) 1 % (4-9) L 12/12/18 04:45 Metamyelocytes % 3 12/12/18 04:45 Atypical Lymphocytes 6 12/12/18 04:45 Smudge Cells Present 12/12/18 04:45 Plt Morphology Comment Normal (NORMAL) 12/12/18 04:45 RBC Morphology Abnormal (NORMAL) A 12/12/18 04:45 Hypochromasia 1+ A 12/12/18 04:45 Anisocytosis 1+ A 12/12/18 04:45 Microcytosis Slight A 12/12/18 04:45 Sodium 136 mmol/L (136-145) 12/13/18 05:22 Corrected Sodium TNP 12/13/18 05:22 Potassium 4.1 mmol/L (3.5-5.1) 12/13/18 05:22 Chloride 100 mmol/L (98-107) 12/13/18 05:22 Carbon Dioxide 23.0 mmol/L (21-32) 12/13/18 05:22 BUN 32 mg/dL (7-18) H 12/13/18 05:22 Creatinine 1.10 mg/dL (0.55-1.02) H 12/13/18 05:22 Est GFR (MDRD) Af Amer > 60 (>60) 12/13/18 05:22 Est GFR (MDRD) Non-Af 50 (>60) L 12/13/18 05:22 Glucose 98 mg/dL (65-99) 12/13/18 05:22 Lactic Acid 0.3 mmol/L (0.4-2.0) L 12/12/18 20:39 Calcium 9.8 mg/dL (8.5-10.1) 12/13/18 05:22 Corrected Calcium 10.9 mg/dL (8.5-10.1) H 12/13/18 05:22 Total Bilirubin 0.20 mg/dL (0.2-1.0) 12/13/18 05:22 AST 19 Units/L (15-37) 12/13/18 05:22 ALT 14 Units/L (12-78) 12/13/18 05:22 Alkaline Phosphatase 66 Units/L (46-116) 12/13/18 05:22 Total Protein 7.0 g/dL (6.4-8.2) 12/13/18 05:22 Albumin 2.6 g/dL (3.4-5.0) L 12/13/18 05:22 Globulin 4.4 g/dL (2.5-4.5) 12/13/18 05:22 Albumin/Globulin Ratio 0.6 Ratio (1.1-2.1) L 12/13/18 05:22 Specimen Type Catherized urine 12/13/18 05:05 Urine Color Pale yellow (YELLOW) 12/13/18 05:05 Urine Appearance Clear (CLEAR) 12/13/18 05:05 Urine pH 6.0 (5.0 - 8.0) 12/13/18 05:05 Ur Specific [place] 1.015 (1.000-1.030) 12/13/18 05:05 Urine Protein 1+ (NEGATIVE) 12/13/18 05:05 Urine Glucose (UA) Negative (NEGATIVE) 12/13/18 05:05 Urine Ketones Negative (NEGATIVE) 12/13/18 05:05 Urine Occult Blood 1+ (NEGATIVE) 12/13/18 05:05 Urine Nitrite Negative (NEGATIVE) 12/13/18 05:05 Urine Bilirubin Negative (NEGATIVE) 12/13/18 05:05 Urine Urobilinogen Normal (NORMAL) 12/13/18 05:05 Ur Leukocyte Esterase Negative (NEGATIVE) 12/13/18 05:05 Urine RBC 0-2 /HPF (NONE SEEN) 12/13/18 05:05 Urine WBC None seen /HPF (NONE SEEN) 12/13/18 05:05 Ur Squamous Epith Cells Rare /HPF (NEGATIVE) 12/13/18 05:05 Urine Bacteria Negative /HPF (NEGATIVE) 12/13/18 05:05 Ur Culture Indicated? Yes/culture set up 12/13/18 05:05 Stool Description 4g,black,semiform 12/12/18 17:45 Stl Occult Blood (IFOB) Negative (NEGATIVE) 12/12/18 17:45 - Assessment and Plan 1: infected Lt ankle grafted wound with cellulitis ,Positive for staph . on IV ATB pending C&S results . hopefuly we don't have to remove the graft .. - Problem Patient Problems: Patient Problems Acute CVA (cerebrovascular accident) (Acute) I63.9 Cellulitis of leg, left (Acute) L03.116
[2018-12-13] MEDS: ZOSYN VIAL 3.375 GRAMS 3.375 G in NS 100 ML IV + SPIKE MINIBAG* 100 ML IV SCH ×2 (14:20→21:08)
[2018-12-13] MEDS: NS 1000 ML 1,000 ML IV SCH (14:20)
[2018-12-14] MEDS: MORPHINE SULFATE INJ 2 MG INJ IVP PRN (04:16)
[2018-12-14] MEDS: ZOSYN VIAL 3.375 GRAMS 3.375 G in NS 100 ML IV + SPIKE MINIBAG* 100 ML IV SCH ×3 (04:59→21:02)
[2018-12-14 06:15] LABS: BASOPHILS # (AUTO) 0.1 X10^3/uL (0.0-0.1); BASOPHILS % (AUTO) 0.1 % (0.2-1.0); HEMATOCRIT 23.7 % (36.0-47.0); HEMOGLOBIN 7.6 g/dL (12.0-16.0); LYMPHOCYTES # (AUTO) 59.1 X10^3/uL (1.3-2.9); MEAN CORPUSCULAR HEMOGLOBIN 30.2 pg (27.0-34.0); MEAN CORPUSCULAR VOLUME 94.5 fL (80.0-100.0); MEAN PLATELET VOLUME 10.1 fL (7.4-11.0); MONOCYTES # (AUTO) 0.3 x10^3/uL (0.3-0.8); MONOCYTES % (AUTO) 0.4 % (0.0-13.0); NEUTROPHILS # (AUTO) 6.3 x10^3/uL (2.2-4.8); NEUTROPHILS % (AUTO) 9.5 % (42.0-75.0); PLATELET COUNT 236 X10^3/uL (150.0-450.0); RED BLOOD COUNT 2.51 X10^6/uL (3.5-5.4); RED CELL DISTRIBUTION WIDTH 14.7 % (11.6-16.5)
[2018-12-14 06:17] LABS: ALANINE AMINOTRANSFERASE 14 Units/L (12-78); ALBUMIN 2.5 g/dL (3.4-5.0); ALKALINE PHOSPHATASE 64 Units/L (46-116); ASPARTATE AMINO TRANSFERASE 19 Units/L (15-37); BLOOD UREA NITROGEN 32 mg/dL (7-18); CALCIUM 9.6 mg/dL (8.5-10.1); CARBON DIOXIDE 23.3 mmol/L (21-32); CHLORIDE 103 mmol/L (98-107); COR CA(FOR HYPOALB) 10.8 mg/dL (8.5-10.1); CREATININE 1.23 mg/dL (0.55-1.02); SODIUM 139 mmol/L (136-145); TOTAL PROTEIN 6.7 g/dL (6.4-8.2); eGFR NON BLACK RACES 44 (>60)
[2018-12-14 06:22] LABS: WHITE BLOOD COUNT 65.7 X10^3/uL (3.6-10.0)
[2018-12-14] MEDS: ASPIRIN 81 MG CHEWTAB PO SCH (08:43)
[2018-12-14] MEDS: LOVENOX INJ 40 MG SYR SC SCH (08:47)
--- NOTE | 2018-12-14 09:00 | PCM.PROG ---
Progress Note - Progress Note for Day of Date of Exam: 12/13/18 - Subjective Subjective: WAS ADMITTED FOR NEW ONSET CVA AND LEFT LEG CELLULITIS. SHE IS AWAKE, LYING IN BED ON MORNING ROUNDS. SHE IS NOTED WITH LEFT SIDED WEAKNESS AND DIFFICULTY SWALLOWING. ON EXAMINATION, HEART IS REGULAR IN RATE AND RHYTHM. BILATERAL LUNGS ARE NOTED WITH DIMINISHED LUNG SOUNDS THROUGHOUT. ABDOMEN IS ROUND, SOFT, AND NON-TENDER WITH NORMAL BOWEL SOUNDS NOTED IN ALL QUADRANTS. THERE IS A DRESSING NOTED TO LEFT LEG. DRESSING IS DRY AND INTACT. A WOUND CULTURE WAS OBTAINED AND IS PENDING. HER VITALS THIS MORNING ARE 99.6-86-20-93%-166/71. LABS WERE OBTAINED. ABNORMAL LAB VALUES INCLUDE THE FOLLOWING: WBC 67.4, RBC 2.58, HGB 7.9, HCT 24.6, BUN 32, CREATININE 1.10, ALBUMIN 2.6. CAROTID DOPPLER OBTAINED THIS MORNING AND REVEALED: No evidence for significant carotid stenosis. ECHO REVEALED AN EJECTION FRACTION OF 59%. SPEECH THERAPY WAS CONSULTED AND WILL EVALUATE PATIENT TODAY. WE WILL CHANGE HER ANTIBIOITCS TO ZOSYN. OTHERWISE, WE WILL CONTINUE WITH CURRENT PLAN OF CARE TODAY. WE PLAN TO FOLLOW UP WITH AM LABS AND CONTINUE TO MONITOR. - Past Medical Family Social History Past Med/Fam/Surg Hx: No changes since H&P Allergies: Allergies codeine Allergy (Severe, Verified 03/24/18 17:29) - Review of Systems ROS: No change since H&P - Vital Signs and I&O's Vital Signs: Temperature 99.7 F Pulse Rate [Left Brachial] 60 Respiratory Rate 20 Blood Pressure [Right Arm] 147/66 Blood Pressure [Left Arm] 183/74 Blood Pressure 170/78 O2 Sat by Pulse Oximetry 95 Intake and Output: Intake & Output 12/11/18 12/12/18 12/13/18 12/14/18 11:59 11:59 11:59 11:59 Intake Total 575 / 575 500 / 500 685 / 685 Balance 575 / 575 500 / 500 685 / 685 - Physical Exam Oriented: Normal, Person Eyes: Normal Ear: Normal Nose: Normal Throat: Normal Respiratory: Generalized, Diminished Cardiovascular: Normal. negative: S3, S4, Murmur : Normal Auscultation: Bowel Sounds: Normal Palpation: Normal Tenderness: Normal Skin: Decreased Turgur, Red, Tender, Wound (4x5cm open wound Lt anterior thigh , 4x5cm grafted wound above Lt ankle taking about 50% or less with purulent draiage , tender with sorrounding erythema ) Musculoskeletal: Right, Left, Leg, Tender, Motor Deficit Psychiatric: Depression Mood Description: Calm Speech Pattern: Appropriate, Slurred - Laboratory and Diagnostics Result Diagrams: 12/14/18 05:04 12/14/18 05:04 Labs: 12/13/18 05:05 Urine,Catheterized Urine Culture - Preliminary Laboratory WBC 65.7 X10^3/uL (3.6-10.0) H* 12/14/18 05:04 RBC 2.51 X10^6/uL (3.5-5.4) L 12/14/18 05:04 Hgb 7.6 g/dL (12.0-16.0) L 12/14/18 05:04 Hct 23.7 % (36.0-47.0) L 12/14/18 05:04 MCV 94.5 fL (80.0-100.0) 12/14/18 05:04 MCH 30.2 pg (27.0-34.0) 12/14/18 05:04 MCHC 32.0 g/dL (33.0-35.0) L 12/14/18 05:04 RDW 14.7 % (11.6-16.5) 12/14/18 05:04 Plt Count 236 X10^3/uL (150.0-450.0) 12/14/18 05:04 Plt Count Comment Adequate (ADEQUATE) 12/12/18 04:45 MPV 10.1 fL (7.4-11.0) 12/14/18 05:04 Neut % (Auto) 9.5 % (42.0-75.0) L 12/14/18 05:04 Lymph % (Auto) 90.0 % (21.0-51.0) H 12/14/18 05:04 [place] % (Auto) 0.4 % (0.0-13.0) 12/14/18 05:04 Eos % (Auto) 0.0 % (0.9-2.9) L 12/14/18 05:04 Baso % (Auto) 0.1 % (0.2-1.0) L 12/14/18 05:04 Neut # (Auto) 6.3 x10^3/uL (2.2-4.8) H 12/14/18 05:04 Lymph # (Auto) 59.1 X10^3/uL (1.3-2.9) H 12/14/18 05:04 [place] # (Auto) 0.3 x10^3/uL (0.3-0.8) 12/14/18 05:04 Eos # (Auto) 0.0 x10^3/uL (0.0-0.2) 12/14/18 05:04 Baso # (Auto) 0.1 X10^3/uL (0.0-0.1) 12/14/18 05:04 Absolute Nucleated RBC 0.1 /100WBC 12/14/18 05:04 Total Counted 100 12/12/18 04:45 Neutrophils % (Manual) 11 % (39-76) L 12/12/18 04:45 Band Neutrophils % 1 % (0-10) 12/12/18 04:45 Lymphocytes % (Manual) 78 % (13-43) H 12/12/18 04:45 Monocytes % (Manual) 1 % (4-9) L 12/12/18 04:45 Metamyelocytes % 3 12/12/18 04:45 Atypical Lymphocytes 6 12/12/18 04:45 Smudge Cells Present 12/12/18 04:45 Plt Morphology Comment Normal (NORMAL) 12/12/18 04:45 RBC Morphology Abnormal (NORMAL) A 12/12/18 04:45 Hypochromasia 1+ A 12/12/18 04:45 Anisocytosis 1+ A 12/12/18 04:45 Microcytosis Slight A 12/12/18 04:45 Sodium 139 mmol/L (136-145) 12/14/18 05:04 Corrected Sodium TNP 12/14/18 05:04 Potassium 4.1 mmol/L (3.5-5.1) 12/14/18 05:04 Chloride 103 mmol/L (98-107) 12/14/18 05:04 Carbon Dioxide 23.3 mmol/L (21-32) 12/14/18 05:04 BUN 32 mg/dL (7-18) H 12/14/18 05:04 Creatinine 1.23 mg/dL (0.55-1.02) H 12/14/18 05:04 Est GFR (MDRD) Af Amer 53 (>60) L 12/14/18 05:04 Est GFR (MDRD) Non-Af 44 (>60) L 12/14/18 05:04 Glucose 107 mg/dL (65-99) H 12/14/18 05:04 Lactic Acid 0.3 mmol/L (0.4-2.0) L 12/12/18 20:39 Calcium 9.6 mg/dL (8.5-10.1) 12/14/18 05:04 Corrected Calcium 10.8 mg/dL (8.5-10.1) H 12/14/18 05:04 Total Bilirubin 0.20 mg/dL (0.2-1.0) 12/14/18 05:04 AST 19 Units/L (15-37) 12/14/18 05:04 ALT 14 Units/L (12-78) 12/14/18 05:04 Alkaline Phosphatase 64 Units/L (46-116) 12/14/18 05:04 Total Protein 6.7 g/dL (6.4-8.2) 12/14/18 05:04 Albumin 2.5 g/dL (3.4-5.0) L 12/14/18 05:04 Globulin 4.2 g/dL (2.5-4.5) 12/14/18 05:04 Albumin/Globulin Ratio 0.6 Ratio (1.1-2.1) L 12/14/18 05:04 Specimen Type Catherized urine 12/13/18 05:05 Urine Color Pale yellow (YELLOW) 12/13/18 05:05 Urine Appearance Clear (CLEAR) 12/13/18 05:05 Urine pH 6.0 (5.0 - 8.0) 12/13/18 05:05 Ur Specific [place] 1.015 (1.000-1.030) 12/13/18 05:05 Urine Protein 1+ (NEGATIVE) 12/13/18 05:05 Urine Glucose (UA) Negative (NEGATIVE) 12/13/18 05:05 Urine Ketones Negative (NEGATIVE) 12/13/18 05:05 Urine Occult Blood 1+ (NEGATIVE) 12/13/18 05:05 Urine Nitrite Negative (NEGATIVE) 12/13/18 05:05 Urine Bilirubin Negative (NEGATIVE) 12/13/18 05:05 Urine Urobilinogen Normal (NORMAL) 12/13/18 05:05 Ur Leukocyte Esterase Negative (NEGATIVE) 12/13/18 05:05 Urine RBC 0-2 /HPF (NONE SEEN) 12/13/18 05:05 Urine WBC None seen /HPF (NONE SEEN) 12/13/18 05:05 Ur Squamous Epith Cells Rare /HPF (NEGATIVE) 12/13/18 05:05 Urine Bacteria Negative /HPF (NEGATIVE) 12/13/18 05:05 Ur Culture Indicated? Yes/culture set up 12/13/18 05:05 Stool Description 4g,black,semiform 12/12/18 17:45 Stl Occult Blood (IFOB) Negative (NEGATIVE) 12/12/18 17:45 - Plan (1) Acute CVA (cerebrovascular accident) Status: Acute Plan: BP AND LIPID CONTROL, ASPIRIN, STATIN PLAVIX. PT/OT CONSULT, SWALLOW EVALUATION. VERIFY HOME MEDICATION, WOUND CULTURE. WOUND CARE, BLOOD CULTURES, PAIN CONTROL (2) Cellulitis of leg, left Status: Acute Plan: IV ZOSYN, WOUND CARE, CONTINUE TO MONITOR (3) History of leukemia Status: Chronic
[2018-12-14] MEDS: NS 1000 ML 1,000 ML IV SCH (16:02)
--- NOTE | 2018-12-14 16:33 | DR.PROGNOT ---
Hospital Progress Notes - Progress Note for Day of: Progress Note Date: 12/14/18 - Chief Complaint Chief Complaint: less drainage Lt ankle ulcer . all pat were removed . only mild drainage . graft is taking about 60%. doner site is healing slowly , no infection - Past Medical Family Social History Past Med/Fam/Surg Hx: No changes since H&P Allergies: Allergies codeine Allergy (Severe, Verified 03/24/18 17:29) - Review Of Systems ROS: No change since H&P - Vital Signs Vital Signs: Temperature 98.6 F Pulse Rate [Left Brachial] 61 Respiratory Rate 20 Blood Pressure [Right Arm] 147/66 Blood Pressure [Left Arm] 168/71 Blood Pressure 170/78 O2 Sat by Pulse Oximetry 94 - Physical Exam Oriented: Normal, Person Eyes: Normal Ear: Normal Nose: Normal Throat: Normal Respiratory: Generalized, Diminished Cardiovascular: Normal. negative: S3, S4, Murmur : Normal GI:Auscultation: Normal GI:Palpation: Normal GI: Tenderness: Normal Skin: Decreased Turgur, Red, Tender Musculoskeletal: Right, Left, Leg, Tender, Motor Deficit Psychiatric: Depression Mood Description: Calm Speech Pattern: Slurred - Laboratory and Diagnostics Result Diagrams: 12/14/18 05:04 12/14/18 05:04 Labs: 12/12/18 16:32 Blood Blood Culture - Preliminary 12/12/18 16:33 Blood Blood Culture - Preliminary 12/13/18 05:05 Urine,Catheterized Urine Culture - Preliminary Laboratory WBC 65.7 X10^3/uL (3.6-10.0) H* 12/14/18 05:04 RBC 2.51 X10^6/uL (3.5-5.4) L 12/14/18 05:04 Hgb 7.6 g/dL (12.0-16.0) L 12/14/18 05:04 Hct 23.7 % (36.0-47.0) L 12/14/18 05:04 MCV 94.5 fL (80.0-100.0) 12/14/18 05:04 MCH 30.2 pg (27.0-34.0) 12/14/18 05:04 MCHC 32.0 g/dL (33.0-35.0) L 12/14/18 05:04 RDW 14.7 % (11.6-16.5) 12/14/18 05:04 Plt Count 236 X10^3/uL (150.0-450.0) 12/14/18 05:04 Plt Count Comment Adequate (ADEQUATE) 12/12/18 04:45 MPV 10.1 fL (7.4-11.0) 12/14/18 05:04 Neut % (Auto) 9.5 % (42.0-75.0) L 12/14/18 05:04 Lymph % (Auto) 90.0 % (21.0-51.0) H 12/14/18 05:04 [place] % (Auto) 0.4 % (0.0-13.0) 12/14/18 05:04 Eos % (Auto) 0.0 % (0.9-2.9) L 12/14/18 05:04 Baso % (Auto) 0.1 % (0.2-1.0) L 12/14/18 05:04 Neut # (Auto) 6.3 x10^3/uL (2.2-4.8) H 12/14/18 05:04 Lymph # (Auto) 59.1 X10^3/uL (1.3-2.9) H 12/14/18 05:04 [place] # (Auto) 0.3 x10^3/uL (0.3-0.8) 12/14/18 05:04 Eos # (Auto) 0.0 x10^3/uL (0.0-0.2) 12/14/18 05:04 Baso # (Auto) 0.1 X10^3/uL (0.0-0.1) 12/14/18 05:04 Absolute Nucleated RBC 0.1 /100WBC 12/14/18 05:04 Total Counted 100 12/12/18 04:45 Neutrophils % (Manual) 11 % (39-76) L 12/12/18 04:45 Band Neutrophils % 1 % (0-10) 12/12/18 04:45 Lymphocytes % (Manual) 78 % (13-43) H 12/12/18 04:45 Monocytes % (Manual) 1 % (4-9) L 12/12/18 04:45 Metamyelocytes % 3 12/12/18 04:45 Atypical Lymphocytes 6 12/12/18 04:45 Smudge Cells Present 12/12/18 04:45 Plt Morphology Comment Normal (NORMAL) 12/12/18 04:45 RBC Morphology Abnormal (NORMAL) A 12/12/18 04:45 Hypochromasia 1+ A 12/12/18 04:45 Anisocytosis 1+ A 12/12/18 04:45 Microcytosis Slight A 12/12/18 04:45 Sodium 139 mmol/L (136-145) 12/14/18 05:04 Corrected Sodium TNP 12/14/18 05:04 Potassium 4.1 mmol/L (3.5-5.1) 12/14/18 05:04 Chloride 103 mmol/L (98-107) 12/14/18 05:04 Carbon Dioxide 23.3 mmol/L (21-32) 12/14/18 05:04 BUN 32 mg/dL (7-18) H 12/14/18 05:04 Creatinine 1.23 mg/dL (0.55-1.02) H 12/14/18 05:04 Est GFR (MDRD) Af Amer 53 (>60) L 12/14/18 05:04 Est GFR (MDRD) Non-Af 44 (>60) L 12/14/18 05:04 Glucose 107 mg/dL (65-99) H 12/14/18 05:04 Lactic Acid 0.3 mmol/L (0.4-2.0) L 12/12/18 20:39 Calcium 9.6 mg/dL (8.5-10.1) 12/14/18 05:04 Corrected Calcium 10.8 mg/dL (8.5-10.1) H 12/14/18 05:04 Total Bilirubin 0.20 mg/dL (0.2-1.0) 12/14/18 05:04 AST 19 Units/L (15-37) 12/14/18 05:04 ALT 14 Units/L (12-78) 12/14/18 05:04 Alkaline Phosphatase 64 Units/L (46-116) 12/14/18 05:04 Total Protein 6.7 g/dL (6.4-8.2) 12/14/18 05:04 Albumin 2.5 g/dL (3.4-5.0) L 12/14/18 05:04 Globulin 4.2 g/dL (2.5-4.5) 12/14/18 05:04 Albumin/Globulin Ratio 0.6 Ratio (1.1-2.1) L 12/14/18 05:04 Specimen Type Catherized urine 12/13/18 05:05 Urine Color Pale yellow (YELLOW) 12/13/18 05:05 Urine Appearance Clear (CLEAR) 12/13/18 05:05 Urine pH 6.0 (5.0 - 8.0) 12/13/18 05:05 Ur Specific [place] 1.015 (1.000-1.030) 12/13/18 05:05 Urine Protein 1+ (NEGATIVE) 12/13/18 05:05 Urine Glucose (UA) Negative (NEGATIVE) 12/13/18 05:05 Urine Ketones Negative (NEGATIVE) 12/13/18 05:05 Urine Occult Blood 1+ (NEGATIVE) 12/13/18 05:05 Urine Nitrite Negative (NEGATIVE) 12/13/18 05:05 Urine Bilirubin Negative (NEGATIVE) 12/13/18 05:05 Urine Urobilinogen Normal (NORMAL) 12/13/18 05:05 Ur Leukocyte Esterase Negative (NEGATIVE) 12/13/18 05:05 Urine RBC 0-2 /HPF (NONE SEEN) 12/13/18 05:05 Urine WBC None seen /HPF (NONE SEEN) 12/13/18 05:05 Ur Squamous Epith Cells Rare /HPF (NEGATIVE) 12/13/18 05:05 Urine Bacteria Negative /HPF (NEGATIVE) 12/13/18 05:05 Ur Culture Indicated? Yes/culture set up 12/13/18 05:05 Stool Description 4g,black,semiform 12/12/18 17:45 Stl Occult Blood (IFOB) Negative (NEGATIVE) 12/12/18 17:45 - Assessment and Plan 1: improving infected Lt ankle grafted wound with cellulitis ,Positive for staph . on IV ATB pending C&S results . no need for debridement now .. same local care and ATB . keep doner site open to air . - Problem Patient Problems: Patient Problems Acute CVA (cerebrovascular accident) (Acute) I63.9 Cellulitis of leg, left (Acute) L03.116
--- NOTE | 2018-12-14 22:32 | PCM.PROG ---
Progress Note - Progress Note for Day of Date of Exam: 12/14/18 - Subjective Subjective: WAS ADMITTED FOR NEW ONSET CVA AND LEFT LEG CELLULITIS. SHE HAS A SKIN GRAFT TO THE LEFT LEG. TODAY, SHE IS AWAKE, LYING IN BED ON MORNING ROUNDS. SHE CONTINUES WITH LEFT SIDED WEAKNESS AND DIFFICULTY SWALLOWING. ON EXAMINATION, HEART IS REGULAR IN RATE AND RHYTHM. BILATERAL LUNGS ARE NOTED WITH DIMINISHED LUNG SOUNDS THROUGHOUT. ABDOMEN IS ROUND, SOFT, AND NON-TENDER WITH NORMAL BOWEL SOUNDS NOTED IN ALL QUADRANTS. THERE IS A DRESSING NOTED TO LEFT LEG. DRESSING IS DRY AND INTACT. A WOUND CULTURE WAS OBTAINED AND IS PENDING. HER VITALS THIS MORNING ARE 99.3-60-18-96%-158/69. LABS WERE OBTAINED. ABNORMAL LAB VALUES INCLUDE THE FOLLOWING: WBC 65.7, RBC 2.51, HGB 7.6, HCT 23.7, BUN 32, CREATININE 1.23, GLUCOSE 107, ALBUMIN 2.5. SPEECH THERAPY EVALUATED PATIENT YESTERDAY AND RECOMMEND A MODIFIED BARIUM SWALLOW. WE ARE IN AGREEMENT AND WILL SCHEDULE WITH [facility]. SHE CONTINUE ON IV ANTIBIOTICS. OTHERWISE, WE WILL CONTINUE WITH CURRENT PLAN OF CARE TODAY. WE PLAN TO FOLLOW UP WITH AM LABS AND CONTINUE TO MONITOR. - Past Medical Family Social History Past Med/Fam/Surg Hx: No changes since H&P Allergies: Allergies codeine Allergy (Severe, Verified 03/24/18 17:29) - Review of Systems ROS: No change since H&P - Vital Signs and I&O's Vital Signs: Temperature 98.9 F Pulse Rate [Left Brachial] 61 Respiratory Rate 20 Blood Pressure [Right Arm] 147/66 Blood Pressure [Left Arm] 180/72 Blood Pressure 170/78 O2 Sat by Pulse Oximetry 97 Intake and Output: Intake & Output 12/12/18 12/13/18 12/14/18 12/15/18 11:59 11:59 11:59 11:59 Intake Total 575 / 575 500 / 500 685 / 685 480 / 480 Balance 575 / 575 500 / 500 685 / 685 480 / 480 - Physical Exam Oriented: Normal, Person Eyes: Normal Ear: Normal Nose: Normal Throat: Normal Respiratory: Generalized, Diminished Cardiovascular: Normal. negative: S3, S4, Murmur : Normal Auscultation: Bowel Sounds: Normal Palpation: Normal Tenderness: Normal Skin: Decreased Turgur, Red, Tender Musculoskeletal: Right, Left, Leg, Tender, Motor Deficit Psychiatric: Depression Mood Description: Calm Speech Pattern: Slurred - Laboratory and Diagnostics Result Diagrams: 12/14/18 05:04 12/14/18 05:04 Labs: 12/12/18 16:32 Blood Blood Culture - Preliminary 12/12/18 16:33 Blood Blood Culture - Preliminary 12/13/18 05:05 Urine,Catheterized Urine Culture - Preliminary Laboratory WBC 65.7 X10^3/uL (3.6-10.0) H* 12/14/18 05:04 RBC 2.51 X10^6/uL (3.5-5.4) L 12/14/18 05:04 Hgb 7.6 g/dL (12.0-16.0) L 12/14/18 05:04 Hct 23.7 % (36.0-47.0) L 12/14/18 05:04 MCV 94.5 fL (80.0-100.0) 12/14/18 05:04 MCH 30.2 pg (27.0-34.0) 12/14/18 05:04 MCHC 32.0 g/dL (33.0-35.0) L 12/14/18 05:04 RDW 14.7 % (11.6-16.5) 12/14/18 05:04 Plt Count 236 X10^3/uL (150.0-450.0) 12/14/18 05:04 Plt Count Comment Adequate (ADEQUATE) 12/12/18 04:45 MPV 10.1 fL (7.4-11.0) 12/14/18 05:04 Neut % (Auto) 9.5 % (42.0-75.0) L 12/14/18 05:04 Lymph % (Auto) 90.0 % (21.0-51.0) H 12/14/18 05:04 [place] % (Auto) 0.4 % (0.0-13.0) 12/14/18 05:04 Eos % (Auto) 0.0 % (0.9-2.9) L 12/14/18 05:04 Baso % (Auto) 0.1 % (0.2-1.0) L 12/14/18 05:04 Neut # (Auto) 6.3 x10^3/uL (2.2-4.8) H 12/14/18 05:04 Lymph # (Auto) 59.1 X10^3/uL (1.3-2.9) H 12/14/18 05:04 [place] # (Auto) 0.3 x10^3/uL (0.3-0.8) 12/14/18 05:04 Eos # (Auto) 0.0 x10^3/uL (0.0-0.2) 12/14/18 05:04 Baso # (Auto) 0.1 X10^3/uL (0.0-0.1) 12/14/18 05:04 Absolute Nucleated RBC 0.1 /100WBC 12/14/18 05:04 Total Counted 100 12/12/18 04:45 Neutrophils % (Manual) 11 % (39-76) L 12/12/18 04:45 Band Neutrophils % 1 % (0-10) 12/12/18 04:45 Lymphocytes % (Manual) 78 % (13-43) H 12/12/18 04:45 Monocytes % (Manual) 1 % (4-9) L 12/12/18 04:45 Metamyelocytes % 3 12/12/18 04:45 Atypical Lymphocytes 6 12/12/18 04:45 Smudge Cells Present 12/12/18 04:45 Plt Morphology Comment Normal (NORMAL) 12/12/18 04:45 RBC Morphology Abnormal (NORMAL) A 12/12/18 04:45 Hypochromasia 1+ A 12/12/18 04:45 Anisocytosis 1+ A 12/12/18 04:45 Microcytosis Slight A 12/12/18 04:45 Sodium 139 mmol/L (136-145) 12/14/18 05:04 Corrected Sodium TNP 12/14/18 05:04 Potassium 4.1 mmol/L (3.5-5.1) 12/14/18 05:04 Chloride 103 mmol/L (98-107) 12/14/18 05:04 Carbon Dioxide 23.3 mmol/L (21-32) 12/14/18 05:04 BUN 32 mg/dL (7-18) H 12/14/18 05:04 Creatinine 1.23 mg/dL (0.55-1.02) H 12/14/18 05:04 Est GFR (MDRD) Af Amer 53 (>60) L 12/14/18 05:04 Est GFR (MDRD) Non-Af 44 (>60) L 12/14/18 05:04 Glucose 107 mg/dL (65-99) H 12/14/18 05:04 Lactic Acid 0.3 mmol/L (0.4-2.0) L 12/12/18 20:39 Calcium 9.6 mg/dL (8.5-10.1) 12/14/18 05:04 Corrected Calcium 10.8 mg/dL (8.5-10.1) H 12/14/18 05:04 Total Bilirubin 0.20 mg/dL (0.2-1.0) 12/14/18 05:04 AST 19 Units/L (15-37) 12/14/18 05:04 ALT 14 Units/L (12-78) 12/14/18 05:04 Alkaline Phosphatase 64 Units/L (46-116) 12/14/18 05:04 Total Protein 6.7 g/dL (6.4-8.2) 12/14/18 05:04 Albumin 2.5 g/dL (3.4-5.0) L 12/14/18 05:04 Globulin 4.2 g/dL (2.5-4.5) 12/14/18 05:04 Albumin/Globulin Ratio 0.6 Ratio (1.1-2.1) L 12/14/18 05:04 Specimen Type Catherized urine 12/13/18 05:05 Urine Color Pale yellow (YELLOW) 12/13/18 05:05 Urine Appearance Clear (CLEAR) 12/13/18 05:05 Urine pH 6.0 (5.0 - 8.0) 12/13/18 05:05 Ur Specific [place] 1.015 (1.000-1.030) 12/13/18 05:05 Urine Protein 1+ (NEGATIVE) 12/13/18 05:05 Urine Glucose (UA) Negative (NEGATIVE) 12/13/18 05:05 Urine Ketones Negative (NEGATIVE) 12/13/18 05:05 Urine Occult Blood 1+ (NEGATIVE) 12/13/18 05:05 Urine Nitrite Negative (NEGATIVE) 12/13/18 05:05 Urine Bilirubin Negative (NEGATIVE) 12/13/18 05:05 Urine Urobilinogen Normal (NORMAL) 12/13/18 05:05 Ur Leukocyte Esterase Negative (NEGATIVE) 12/13/18 05:05 Urine RBC 0-2 /HPF (NONE SEEN) 12/13/18 05:05 Urine WBC None seen /HPF (NONE SEEN) 12/13/18 05:05 Ur Squamous Epith Cells Rare /HPF (NEGATIVE) 12/13/18 05:05 Urine Bacteria Negative /HPF (NEGATIVE) 12/13/18 05:05 Ur Culture Indicated? Yes/culture set up 12/13/18 05:05 Stool Description 4g,black,semiform 12/12/18 17:45 Stl Occult Blood (IFOB) Negative (NEGATIVE) 12/12/18 17:45 - Plan (1) Acute CVA (cerebrovascular accident) Status: Acute Plan: BP AND LIPID CONTROL, ASPIRIN, STATIN PLAVIX. PT/OT CONSULT, SWALLOW EVALUATION. VERIFY HOME MEDICATION, WOUND CULTURE. WOUND CARE, BLOOD CULTURES, PAIN CONTROL (2) Cellulitis of leg, left Status: Acute Plan: IV ZOSYN, WOUND CARE, CONTINUE TO MONITOR (3) Dysphagia Status: Acute Qualifiers: Dysphagia type: unspecified Qualified Code(s): R13.10 - Dysphagia, unspecified Plan: OBTAIN MODIFIED BARIUM SWALLOW, CONTINUE TO MONITOR (4) History of leukemia Status: Chronic
[2018-12-15] MEDS: MORPHINE SULFATE INJ 2 MG INJ IVP PRN (00:02)
[2018-12-15] MEDS: NS 1000 ML 1,000 ML IV SCH ×2 (00:58→17:27)
[2018-12-15] MEDS: ZOSYN VIAL 3.375 GRAMS 3.375 G in NS 100 ML IV + SPIKE MINIBAG* 100 ML IV SCH ×3 (05:00→21:12)
[2018-12-15 06:15] LABS: BASOPHILS # (AUTO) 0.1 X10^3/uL (0.0-0.1); BASOPHILS % (AUTO) 0.1 % (0.2-1.0); HEMATOCRIT 27.1 % (36.0-47.0); HEMOGLOBIN 8.7 g/dL (12.0-16.0); LYMPHOCYTES # (AUTO) 68.7 X10^3/uL (1.3-2.9); LYMPHOCYTES % (AUTO) 92.3 % (21.0-51.0); MEAN CORPUSCULAR HEMOGLOBIN 30.7 pg (27.0-34.0); MEAN CORPUSCULAR HGB CONC 32.2 g/dL (33.0-35.0); MEAN CORPUSCULAR VOLUME 95.5 fL (80.0-100.0); MEAN PLATELET VOLUME 9.8 fL (7.4-11.0); MONOCYTES # (AUTO) 0.3 x10^3/uL (0.3-0.8); MONOCYTES % (AUTO) 0.4 % (0.0-13.0); NEUTROPHILS # (AUTO) 5.4 x10^3/uL (2.2-4.8); NEUTROPHILS % (AUTO) 7.2 % (42.0-75.0); PLATELET COUNT 250 X10^3/uL (150.0-450.0); RED BLOOD COUNT 2.84 X10^6/uL (3.5-5.4); RED CELL DISTRIBUTION WIDTH 14.9 % (11.6-16.5)
[2018-12-15 06:26] LABS: WHITE BLOOD COUNT 74.5 X10^3/uL (3.6-10.0)
[2018-12-15 06:30] LABS: ALANINE AMINOTRANSFERASE 14 Units/L (12-78); ALBUMIN 2.6 g/dL (3.4-5.0); ALKALINE PHOSPHATASE 64 Units/L (46-116); ASPARTATE AMINO TRANSFERASE 15 Units/L (15-37); BLOOD UREA NITROGEN 34 mg/dL (7-18); CALCIUM 9.5 mg/dL (8.5-10.1); CHLORIDE 104 mmol/L (98-107); COR CA(FOR HYPOALB) 10.6 mg/dL (8.5-10.1); SODIUM 141 mmol/L (136-145); TOTAL PROTEIN 6.8 g/dL (6.4-8.2); eGFR NON BLACK RACES 45 (>60)
[2018-12-15] MEDS: BACTROBAN TOPICAL OINT TOP SCH (09:36)
[2018-12-15] MEDS: LOVENOX INJ 40 MG SYR SC SCH (09:41)
[2018-12-15] MEDS ORDERED: NORMODYNE INJ 20 MG VIAL IV PRN (20:07)
--- NOTE | 2018-12-15 21:20 | PCM.PROG ---
Progress Note - Progress Note for Day of Date of Exam: 12/15/18 - Subjective Subjective: WAS ADMITTED FOR NEW ONSET CVA AND LEFT LEG CELLULITIS. SHE HAS A SKIN GRAFT TO THE LEFT LEG. TODAY, SHE IS AWAKE, LYING IN BED ON MORNING ROUNDS. SHE CONTINUES WITH LEFT SIDED WEAKNESS AND DIFFICULTY SWALLOWING. SHE IS ALSO NOTED WITH SLURRED SPEECH. ON EXAMINATION, HEART IS REGULAR IN RATE AND RHYTHM. BILATERAL LUNGS ARE NOTED WITH DIMINISHED LUNG SOUNDS THROUGHOUT. ABDOMEN IS ROUND, SOFT, AND NON-TENDER WITH NORMAL BOWEL SOUNDS NOTED IN ALL QUADRANTS. THERE IS A DRESSING NOTED TO LEFT LEG. DRESSING IS DRY AND INTACT. A WOUND CULTURE WAS OBTAINED AND IS PENDING. HER VITALS THIS MORNING ARE 97.6-60-20-98%-180/76. LABS WERE OBTAINED. ABNORMAL LAB VALUES INCLUDE THE FOLLOWING: WBC INCREASED TO 74.5, RBC 2.84, HGB 8.7, HCT 27.1, BUN 34, CREATININE 1.20, ALBUMIN 2.6. SHE IS SCHEDULED FOR A MODIFIED BARIUM SWALLOW TODAY. SHE CONTINUES ON IV ANTIBIOTICS. OTHERWISE, WE WILL CONTINUE WITH CURRENT PLAN OF CARE TODAY. WE PLAN TO FOLLOW UP WITH AM LABS AND CONTINUE TO MONITOR. - Past Medical Family Social History Past Med/Fam/Surg Hx: No changes since H&P Allergies: Allergies codeine Allergy (Severe, Verified 03/24/18 17:29) - Review of Systems ROS: No change since H&P - Vital Signs and I&O's Vital Signs: Temperature 99.4 F Pulse Rate [Left Brachial] 60 Respiratory Rate 20 Blood Pressure [Right Arm] 147/66 Blood Pressure [Left Arm] 155/72 Blood Pressure 170/78 O2 Sat by Pulse Oximetry 93 Intake and Output: Intake & Output 12/13/18 12/14/18 12/15/18 12/16/18 11:59 11:59 11:59 11:59 Intake Total 500 / 500 685 / 685 760 / 760 0 / 0 Balance 500 / 500 685 / 685 760 / 760 0 / 0 - Physical Exam Oriented: Normal, Person Eyes: Normal Ear: Normal Nose: Normal Throat: Normal Respiratory: Generalized, Diminished Cardiovascular: Normal. negative: S3, S4, Murmur : Normal Auscultation: Bowel Sounds: Normal Palpation: Normal Tenderness: Normal Skin: Decreased Turgur, Red, Tender Musculoskeletal: Right, Left, Leg, Tender, Motor Deficit Psychiatric: Depression Mood Description: Calm Speech Pattern: Slurred - Laboratory and Diagnostics Result Diagrams: 12/15/18 05:30 12/15/18 05:30 Labs: 12/13/18 05:05 Urine,Catheterized Urine Culture - Final 12/12/18 16:32 Blood Blood Culture - Preliminary 12/12/18 16:33 Blood Blood Culture - Preliminary Laboratory WBC 74.5 X10^3/uL (3.6-10.0) H* D 12/15/18 05:30 RBC 2.84 X10^6/uL (3.5-5.4) L 12/15/18 05:30 Hgb 8.7 g/dL (12.0-16.0) L 12/15/18 05:30 Hct 27.1 % (36.0-47.0) L 12/15/18 05:30 MCV 95.5 fL (80.0-100.0) 12/15/18 05:30 MCH 30.7 pg (27.0-34.0) 12/15/18 05:30 MCHC 32.2 g/dL (33.0-35.0) L 12/15/18 05:30 RDW 14.9 % (11.6-16.5) 12/15/18 05:30 Plt Count 250 X10^3/uL (150.0-450.0) 12/15/18 05:30 Plt Count Comment Adequate (ADEQUATE) 12/12/18 04:45 MPV 9.8 fL (7.4-11.0) 12/15/18 05:30 Neut % (Auto) 7.2 % (42.0-75.0) L 12/15/18 05:30 Lymph % (Auto) 92.3 % (21.0-51.0) H 12/15/18 05:30 [place] % (Auto) 0.4 % (0.0-13.0) 12/15/18 05:30 Eos % (Auto) 0.0 % (0.9-2.9) L 12/15/18 05:30 Baso % (Auto) 0.1 % (0.2-1.0) L 12/15/18 05:30 Neut # (Auto) 5.4 x10^3/uL (2.2-4.8) H 12/15/18 05:30 Lymph # (Auto) 68.7 X10^3/uL (1.3-2.9) H 12/15/18 05:30 [place] # (Auto) 0.3 x10^3/uL (0.3-0.8) 12/15/18 05:30 Eos # (Auto) 0.0 x10^3/uL (0.0-0.2) 12/15/18 05:30 Baso # (Auto) 0.1 X10^3/uL (0.0-0.1) 12/15/18 05:30 Absolute Nucleated RBC 0.2 /100WBC 12/15/18 05:30 Total Counted 100 12/12/18 04:45 Neutrophils % (Manual) 11 % (39-76) L 12/12/18 04:45 Band Neutrophils % 1 % (0-10) 12/12/18 04:45 Lymphocytes % (Manual) 78 % (13-43) H 12/12/18 04:45 Monocytes % (Manual) 1 % (4-9) L 12/12/18 04:45 Metamyelocytes % 3 12/12/18 04:45 Atypical Lymphocytes 6 12/12/18 04:45 Smudge Cells Present 12/12/18 04:45 Plt Morphology Comment Normal (NORMAL) 12/12/18 04:45 RBC Morphology Abnormal (NORMAL) A 12/12/18 04:45 Hypochromasia 1+ A 12/12/18 04:45 Anisocytosis 1+ A 12/12/18 04:45 Microcytosis Slight A 12/12/18 04:45 Sodium 141 mmol/L (136-145) 12/15/18 05:30 Corrected Sodium TNP 12/15/18 05:30 Potassium 3.7 mmol/L (3.5-5.1) 12/15/18 05:30 Chloride 104 mmol/L (98-107) 12/15/18 05:30 Carbon Dioxide 25.0 mmol/L (21-32) 12/15/18 05:30 BUN 34 mg/dL (7-18) H 12/15/18 05:30 Creatinine 1.20 mg/dL (0.55-1.02) H 12/15/18 05:30 Est GFR (MDRD) Af Amer 55 (>60) L 12/15/18 05:30 Est GFR (MDRD) Non-Af 45 (>60) L 12/15/18 05:30 Glucose 99 mg/dL (65-99) 12/15/18 05:30 Lactic Acid 0.3 mmol/L (0.4-2.0) L 12/12/18 20:39 Calcium 9.5 mg/dL (8.5-10.1) 12/15/18 05:30 Corrected Calcium 10.6 mg/dL (8.5-10.1) H 12/15/18 05:30 Total Bilirubin 0.20 mg/dL (0.2-1.0) 12/15/18 05:30 AST 15 Units/L (15-37) 12/15/18 05:30 ALT 14 Units/L (12-78) 12/15/18 05:30 Alkaline Phosphatase 64 Units/L (46-116) 12/15/18 05:30 Total Protein 6.8 g/dL (6.4-8.2) 12/15/18 05:30 Albumin 2.6 g/dL (3.4-5.0) L 12/15/18 05:30 Globulin 4.2 g/dL (2.5-4.5) 12/15/18 05:30 Albumin/Globulin Ratio 0.6 Ratio (1.1-2.1) L 12/15/18 05:30 Specimen Type Catherized urine 12/13/18 05:05 Urine Color Pale yellow (YELLOW) 12/13/18 05:05 Urine Appearance Clear (CLEAR) 12/13/18 05:05 Urine pH 6.0 (5.0 - 8.0) 12/13/18 05:05 Ur Specific [place] 1.015 (1.000-1.030) 12/13/18 05:05 Urine Protein 1+ (NEGATIVE) 12/13/18 05:05 Urine Glucose (UA) Negative (NEGATIVE) 12/13/18 05:05 Urine Ketones Negative (NEGATIVE) 12/13/18 05:05 Urine Occult Blood 1+ (NEGATIVE) 12/13/18 05:05 Urine Nitrite Negative (NEGATIVE) 12/13/18 05:05 Urine Bilirubin Negative (NEGATIVE) 12/13/18 05:05 Urine Urobilinogen Normal (NORMAL) 12/13/18 05:05 Ur Leukocyte Esterase Negative (NEGATIVE) 12/13/18 05:05 Urine RBC 0-2 /HPF (NONE SEEN) 12/13/18 05:05 Urine WBC None seen /HPF (NONE SEEN) 12/13/18 05:05 Ur Squamous Epith Cells Rare /HPF (NEGATIVE) 12/13/18 05:05 Urine Bacteria Negative /HPF (NEGATIVE) 12/13/18 05:05 Ur Culture Indicated? Yes/culture set up 12/13/18 05:05 Stool Description 4g,black,semiform 12/12/18 17:45 Stl Occult Blood (IFOB) Negative (NEGATIVE) 12/12/18 17:45 - Plan (1) Acute CVA (cerebrovascular accident) Status: Acute Plan: BP AND LIPID CONTROL, ASPIRIN, STATIN PLAVIX. PT/OT CONSULT, SWALLOW EVALUATION. VERIFY HOME MEDICATION, WOUND CULTURE. WOUND CARE, BLOOD CULTURES, PAIN CONTROL (2) Cellulitis of leg, left Status: Acute Plan: IV ZOSYN, WOUND CARE, CONTINUE TO MONITOR (3) Dysphagia Status: Acute Qualifiers: Dysphagia type: unspecified Qualified Code(s): R13.10 - Dysphagia, unspecified Plan: OBTAIN MODIFIED BARIUM SWALLOW, CONTINUE TO MONITOR (4) History of leukemia Status: Chronic
[2018-12-16] MEDS: ZOSYN VIAL 3.375 GRAMS 3.375 G in NS 100 ML IV + SPIKE MINIBAG* 100 ML IV SCH (05:12)
[2018-12-16 06:17] LABS: BASOPHILS # (AUTO) 0.4 X10^3/uL (0.0-0.1); BASOPHILS % (AUTO) 0.5 % (0.2-1.0); EOSINOPHILS # (AUTO) 0.1 x10^3/uL (0.0-0.2); EOSINOPHILS % (AUTO) 0.1 % (0.9-2.9); HEMATOCRIT 27.5 % (36.0-47.0); HEMOGLOBIN 8.6 g/dL (12.0-16.0); LYMPHOCYTES # (AUTO) 71.9 X10^3/uL (1.3-2.9); LYMPHOCYTES % (AUTO) 90.1 % (21.0-51.0); MEAN CORPUSCULAR HEMOGLOBIN 30.1 pg (27.0-34.0); MEAN CORPUSCULAR HGB CONC 31.4 g/dL (33.0-35.0); MEAN CORPUSCULAR VOLUME 95.9 fL (80.0-100.0); MEAN PLATELET VOLUME 9.7 fL (7.4-11.0); MONOCYTES # (AUTO) 0.8 x10^3/uL (0.3-0.8); NEUTROPHILS # (AUTO) 6.6 x10^3/uL (2.2-4.8); NEUTROPHILS % (AUTO) 8.3 % (42.0-75.0); PLATELET COUNT 288 X10^3/uL (150.0-450.0); RED BLOOD COUNT 2.87 X10^6/uL (3.5-5.4); RED CELL DISTRIBUTION WIDTH 14.8 % (11.6-16.5)
[2018-12-16 06:29] LABS: WHITE BLOOD COUNT 79.8 X10^3/uL (3.6-10.0)
[2018-12-16 06:37] LABS: ALANINE AMINOTRANSFERASE 14 Units/L (12-78); ALBUMIN 2.8 g/dL (3.4-5.0); ALKALINE PHOSPHATASE 64 Units/L (46-116); ASPARTATE AMINO TRANSFERASE 17 Units/L (15-37); BLOOD UREA NITROGEN 30 mg/dL (7-18); CALCIUM 9.8 mg/dL (8.5-10.1); CARBON DIOXIDE 23.8 mmol/L (21-32); CHLORIDE 106 mmol/L (98-107); COR CA(FOR HYPOALB) 10.8 mg/dL (8.5-10.1); SODIUM 144 mmol/L (136-145); eGFR NON BLACK RACES 50 (>60)
[2018-12-16] MEDS: LOVENOX INJ 40 MG SYR SC SCH (09:38)
[2018-12-16] MEDS: BACTROBAN TOPICAL OINT TOP SCH (09:41)
[2018-12-16] MEDS: ASPIRIN 81 MG CHEWTAB PO SCH (09:41)
--- NOTE | 2018-12-16 10:21 | DR.PROGNOT ---
Hospital Progress Notes - Progress Note for Day of: Progress Note Date: 12/16/18 - Chief Complaint Chief Complaint: no drainage Lt ankle ulcer . graft is taking about 60%. doner site is healing slowly , no infection - Past Medical Family Social History Past Med/Fam/Surg Hx: No changes since H&P Allergies: Allergies codeine Allergy (Severe, Verified 03/24/18 17:29) - Review Of Systems ROS: No change since H&P - Vital Signs Vital Signs: Temperature 98.2 F Pulse Rate [Left Brachial] 59 Respiratory Rate 18 Blood Pressure [Right Arm] 147/66 Blood Pressure [Left Arm] 184/76 Blood Pressure 170/78 O2 Sat by Pulse Oximetry 95 - Physical Exam Oriented: Normal, Person Eyes: Normal Ear: Normal Nose: Normal Throat: Normal Respiratory: Generalized, Diminished Cardiovascular: Normal. negative: S3, S4, Murmur : Normal GI:Auscultation: Normal GI:Palpation: Normal GI: Tenderness: Normal Skin: Decreased Turgur, Red, Tender Musculoskeletal: Right, Left, Leg, Tender, Motor Deficit Psychiatric: Depression Mood Description: Calm Speech Pattern: Slurred - Laboratory and Diagnostics Result Diagrams: 12/16/18 05:04 12/16/18 05:04 Labs: 12/13/18 05:05 Urine,Catheterized Urine Culture - Final 12/12/18 16:32 Blood Blood Culture - Preliminary 12/12/18 16:33 Blood Blood Culture - Preliminary Laboratory WBC 79.8 X10^3/uL (3.6-10.0) H* 12/16/18 05:04 RBC 2.87 X10^6/uL (3.5-5.4) L 12/16/18 05:04 Hgb 8.6 g/dL (12.0-16.0) L 12/16/18 05:04 Hct 27.5 % (36.0-47.0) L 12/16/18 05:04 MCV 95.9 fL (80.0-100.0) 12/16/18 05:04 MCH 30.1 pg (27.0-34.0) 12/16/18 05:04 MCHC 31.4 g/dL (33.0-35.0) L 12/16/18 05:04 RDW 14.8 % (11.6-16.5) 12/16/18 05:04 Plt Count 288 X10^3/uL (150.0-450.0) 12/16/18 05:04 Plt Count Comment Adequate (ADEQUATE) 12/12/18 04:45 MPV 9.7 fL (7.4-11.0) 12/16/18 05:04 Neut % (Auto) 8.3 % (42.0-75.0) L 12/16/18 05:04 Lymph % (Auto) 90.1 % (21.0-51.0) H 12/16/18 05:04 [place] % (Auto) 1.0 % (0.0-13.0) 12/16/18 05:04 Eos % (Auto) 0.1 % (0.9-2.9) L 12/16/18 05:04 Baso % (Auto) 0.5 % (0.2-1.0) 12/16/18 05:04 Neut # (Auto) 6.6 x10^3/uL (2.2-4.8) H 12/16/18 05:04 Lymph # (Auto) 71.9 X10^3/uL (1.3-2.9) H 12/16/18 05:04 [place] # (Auto) 0.8 x10^3/uL (0.3-0.8) 12/16/18 05:04 Eos # (Auto) 0.1 x10^3/uL (0.0-0.2) 12/16/18 05:04 Baso # (Auto) 0.4 X10^3/uL (0.0-0.1) H 12/16/18 05:04 Absolute Nucleated RBC 0.1 /100WBC 12/16/18 05:04 Total Counted 100 12/12/18 04:45 Neutrophils % (Manual) 11 % (39-76) L 12/12/18 04:45 Band Neutrophils % 1 % (0-10) 12/12/18 04:45 Lymphocytes % (Manual) 78 % (13-43) H 12/12/18 04:45 Monocytes % (Manual) 1 % (4-9) L 12/12/18 04:45 Metamyelocytes % 3 12/12/18 04:45 Atypical Lymphocytes 6 12/12/18 04:45 Smudge Cells Present 12/12/18 04:45 Plt Morphology Comment Normal (NORMAL) 12/12/18 04:45 RBC Morphology Abnormal (NORMAL) A 12/12/18 04:45 Hypochromasia 1+ A 12/12/18 04:45 Anisocytosis 1+ A 12/12/18 04:45 Microcytosis Slight A 12/12/18 04:45 Sodium 144 mmol/L (136-145) 12/16/18 05:04 Corrected Sodium TNP 12/16/18 05:04 Potassium 3.7 mmol/L (3.5-5.1) 12/16/18 05:04 Chloride 106 mmol/L (98-107) 12/16/18 05:04 Carbon Dioxide 23.8 mmol/L (21-32) 12/16/18 05:04 BUN 30 mg/dL (7-18) H 12/16/18 05:04 Creatinine 1.10 mg/dL (0.55-1.02) H 12/16/18 05:04 Est GFR (MDRD) Af Amer > 60 (>60) 12/16/18 05:04 Est GFR (MDRD) Non-Af 50 (>60) L 12/16/18 05:04 Glucose 96 mg/dL (65-99) 12/16/18 05:04 Lactic Acid 0.3 mmol/L (0.4-2.0) L 12/12/18 20:39 Calcium 9.8 mg/dL (8.5-10.1) 12/16/18 05:04 Corrected Calcium 10.8 mg/dL (8.5-10.1) H 12/16/18 05:04 Total Bilirubin 0.30 mg/dL (0.2-1.0) 12/16/18 05:04 AST 17 Units/L (15-37) 12/16/18 05:04 ALT 14 Units/L (12-78) 12/16/18 05:04 Alkaline Phosphatase 64 Units/L (46-116) 12/16/18 05:04 Total Protein 7.0 g/dL (6.4-8.2) 12/16/18 05:04 Albumin 2.8 g/dL (3.4-5.0) L 12/16/18 05:04 Globulin 4.2 g/dL (2.5-4.5) 12/16/18 05:04 Albumin/Globulin Ratio 0.7 Ratio (1.1-2.1) L 12/16/18 05:04 Specimen Type Catherized urine 12/13/18 05:05 Urine Color Pale yellow (YELLOW) 12/13/18 05:05 Urine Appearance Clear (CLEAR) 12/13/18 05:05 Urine pH 6.0 (5.0 - 8.0) 12/13/18 05:05 Ur Specific [place] 1.015 (1.000-1.030) 12/13/18 05:05 Urine Protein 1+ (NEGATIVE) 12/13/18 05:05 Urine Glucose (UA) Negative (NEGATIVE) 12/13/18 05:05 Urine Ketones Negative (NEGATIVE) 12/13/18 05:05 Urine Occult Blood 1+ (NEGATIVE) 12/13/18 05:05 Urine Nitrite Negative (NEGATIVE) 12/13/18 05:05 Urine Bilirubin Negative (NEGATIVE) 12/13/18 05:05 Urine Urobilinogen Normal (NORMAL) 12/13/18 05:05 Ur Leukocyte Esterase Negative (NEGATIVE) 12/13/18 05:05 Urine RBC 0-2 /HPF (NONE SEEN) 12/13/18 05:05 Urine WBC None seen /HPF (NONE SEEN) 12/13/18 05:05 Ur Squamous Epith Cells Rare /HPF (NEGATIVE) 12/13/18 05:05 Urine Bacteria Negative /HPF (NEGATIVE) 12/13/18 05:05 Ur Culture Indicated? Yes/culture set up 12/13/18 05:05 Stool Description 4g,black,semiform 12/12/18 17:45 Stl Occult Blood (IFOB) Negative (NEGATIVE) 12/12/18 17:45 - Assessment and Plan 1: clearing Lt leg grafted wound infection. on IV ATB for staph infection. same local care and ATB . keep doner site open to air . same medical care for the CVA . nutritional support and PT /OT - Problem Patient Problems: Patient Problems Dysphagia (Acute) R13.10 Acute CVA (cerebrovascular accident) (Acute) I63.9 Cellulitis of leg, left (Acute) L03.116
[2018-12-16 12:41] VITALS: BP 183/70
--- NOTE | 2018-12-16 15:07 | RAD ---
HISTORY: CVA Study: Single view chest Comparison: 12/10/2018 Findings: Stable dual-chamber pacemaker. 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 Stable cardiomegaly with prominent calcifications of the mitral annulus. The soft tissues are unremarkable. IMPRESSION: 1. Stable exam. Reported By:
== END 2018-12-16 14:45 | DRG 65 ==
LOC: MED/SURG 20:05
PROVIDERS: ADMIT Internal Medicine; ATTEND Internal Medicine
DX: I25.10 Atherosclerotic heart disease of native coronary artery without angina pectoris; B95.7 Other staphylococcus as the cause of diseases classified elsewhere; Z95.0 Presence of cardiac pacemaker; I63.89 Other cerebral infarction; R41.82 Altered mental status, unspecified; Z94.5 Skin transplant status; R53.1 Weakness; R13.11 Dysphagia, oral phase; R26.89 Other abnormalities of gait and mobility; M13.89 Other specified arthritis, multiple sites; K21.9 Gastro-esophageal reflux disease without esophagitis; L03.116 Cellulitis of left lower limb; E78.2 Mixed hyperlipidemia; I10 Essential (primary) hypertension; Z85.6 Personal history of leukemia
CPT/HCPCS: 36415; 70450; 71010; 71045; 74220; 80053; 81001; 82270; 83605; 85025; 87040; 87075; 87086; 92507; 92523; 92526; 92610; 93306; 93880; 94760; 97112; 97162; 97166; 97530; 97535; 99221; A4222; S0077; J1650; J2270; J2543; J3490; J7030; J7050; J7613

== ENCOUNTER 2019-01-06 12:23 | Inpatient (IN) ==
[2019-01-06 12:32] VITALS: BMI 28.8
--- NOTE | 2019-01-06 12:56 | DR.AMS ---
HPI Time Seen Time Seen by Provider: 01/06/19 12:41 PCP Primary Care Physician: avery Complaint Cheif Complaint Doctors Comments: A 88 y/o female [facility] resident noted unresponsive at the facility today. She had a recent TBI and closed C1 fracture on 11/26/18. Chief Complaint:: [facility] staff stated that pt was awake but is unresponsive and not moving. 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 staff stated she has been unresponsive all day and family wanted evaluated. Source History Provided: [facility] Mode of Arrival Mode of Arrival: Stretcher Timing Onset of Chief Complaint: 01/06/19 PMH PMH Past Medical History: Yes Past Medical History: Anemia, Arthritis, CHF, Coronary Artery Disease, Dementia, Dyslipidemia, GERD, Hypertension, [place] and Renal Disease Past Surgical History: Yes Surgical History: Other Family History History of Family Medical Conditions: Yes Family Medical History: Coronary Artery Disease and Hypertension Social History Does patient currently use any type of tobacco product: No Have you used tobacco products in the last 12 months: No Type of Tobacco Use: None Does any household member use tobacco: No Alcohol Use: None Do you use any recreational Drugs:: No Lives With: Other Lives Where: [facility] infectious screening In the last 2 months have you had wt loss of >10#?: NO Have you had fever, night sweats or hemotysis?: No Have you traveled outside the country in the last 6 months?: No Isolation: Standard ROS Review of Systems Constitutional: No Symptoms Reported Eyes: No Symptoms Reported ENTM: No Symptoms Reported Respiratoy: No Symptoms Reported Cardiovascular: No Symptoms Reported Gastrointestinal/Abdominal: No Symptoms Reported Genitourinary: No Symptoms Reported Neurological: Other (unresponsive) Musculoskeletal: No Symptoms Reported Integumentary: negative No Symptoms Reported Hematologic/Lymphatic: No Symptoms Reported Endocrine: No Symptoms Reported Psychiatric: No Symptoms Reported PE Vitals Vital Signs: Temp Pulse Pulse Resp BP BP BP 01/06/19 16:00 60 15 129/63 01/06/19 15:00 60 16 139/64 01/06/19 14:31 60 16 174/78 01/06/19 13:32 60 16 131/60 01/06/19 13:10 60 17 151/70 01/06/19 12:25 98.2 F 60 16 151/67 12/28/18 17:40 189/74 189/74 12/12/18 16:00 147/66 Pulse Ox 01/06/19 16:00 98 01/06/19 15:00 97 01/06/19 14:31 95 01/06/19 13:32 99 01/06/19 13:10 99 01/06/19 12:25 97 12/28/18 17:40 12/12/18 16:00 General Limitations: Physical Limitation General Appearance: Other Head Head Exam: negative Normal Inspection Head Exam Physical: Other (Lt. christin-orbital ecchymosis/bruise) Eyes Eye exam: Normal Appearance Neck Neck Exam: Other (she has ahard c-collar on her neck) Chest Chest Inspection: Normal Inspection and Symmetric Chest Wall Rise Respiratory Respiratory Exam: Normal Lung Sounds Bilat Cardiovascular Cardiovascular Exam: Tachycardia, +S1 and +S4 Abdominal Exam Abdominal Exam: Normal Inspection, Normal Bowel Sounds and Soft Neurological Neurological Exam: Other (She is unreponsive to verbal but stimuli does open eyes ) COURSE Reevaluation 1st: Unchanged Education/Counseling Education/Counseling: Family, Education and Counseling Educated On: Treatment, Diagnosis, Prognosis and Needs for Follow Up ROR Labs Reviewed Result Diagrams: 01/06/19 12:58 01/06/19 12:58 Laboratory: WBC 87.9 X10^3/uL (3.6-10.0) H* 01/06/19 12:58 RBC 3.02 X10^6/uL (3.5-5.4) L 01/06/19 12:58 Hgb 9.1 g/dL (12.0-16.0) L 01/06/19 12:58 Hct 29.3 % (36.0-47.0) L 01/06/19 12:58 MCV 96.8 fL (80.0-100.0) 01/06/19 12:58 MCH 30.1 pg (27.0-34.0) 01/06/19 12:58 MCHC 31.0 g/dL (33.0-35.0) L 01/06/19 12:58 RDW 16.8 % (11.6-16.5) H 01/06/19 12:58 Plt Count 193 X10^3/uL (150.0-450.0) 01/06/19 12:58 Plt Count Comment Adequate (ADEQUATE) 01/06/19 12:58 MPV 9.8 fL (7.4-11.0) 01/06/19 12:58 Neut % (Auto) 5.4 % (42.0-75.0) L 01/06/19 12:58 Lymph % (Auto) 93.0 % (21.0-51.0) H 01/06/19 12:58 [place] % (Auto) 1.5 % (0.0-13.0) 01/06/19 12:58 Eos % (Auto) 0.0 % (0.9-2.9) L 01/06/19 12:58 Baso % (Auto) 0.1 % (0.2-1.0) L 01/06/19 12:58 Neut # (Auto) 4.8 x10^3/uL (2.2-4.8) 01/06/19 12:58 Lymph # (Auto) 81.6 X10^3/uL (1.3-2.9) H 01/06/19 12:58 [place] # (Auto) 1.4 x10^3/uL (0.3-0.8) H 01/06/19 12:58 Eos # (Auto) 0.0 x10^3/uL (0.0-0.2) 01/06/19 12:58 Baso # (Auto) 0.1 X10^3/uL (0.0-0.1) 01/06/19 12:58 Absolute Nucleated RBC 0.2 /100WBC 01/06/19 12:58 Plt Morphology Comment Normal (NORMAL) 01/06/19 12:58 RBC Morphology Abnormal (NORMAL) A 01/06/19 12:58 Hypochromasia Slight A 01/06/19 12:58 Sodium 139 mmol/L (136-145) 01/06/19 12:58 Corrected Sodium TNP 01/06/19 12:58 Potassium 4.5 mmol/L (3.5-5.1) 01/06/19 12:58 Chloride 104 mmol/L (98-107) 01/06/19 12:58 Carbon Dioxide 23.3 mmol/L (21-32) 01/06/19 12:58 BUN 33 mg/dL (7-18) H 01/06/19 12:58 Creatinine 1.23 mg/dL (0.55-1.02) H 01/06/19 12:58 Est GFR (MDRD) Af Amer 53 (>60) L 01/06/19 12:58 Est GFR (MDRD) Non-Af 44 (>60) L 01/06/19 12:58 Glucose 106 mg/dL (65-99) H 01/06/19 12:58 Calcium 10.1 mg/dL (8.5-10.1) 01/06/19 12:58 Corrected Calcium 10.8 mg/dL (8.5-10.1) H 01/06/19 12:58 Total Bilirubin 0.30 mg/dL (0.2-1.0) 01/06/19 12:58 AST 16 Units/L (15-37) 01/06/19 12:58 ALT 16 Units/L (12-78) 01/06/19 12:58 Alkaline Phosphatase 93 Units/L (46-116) 01/06/19 12:58 Total Protein 6.9 g/dL (6.4-8.2) 01/06/19 12:58 Albumin 3.1 g/dL (3.4-5.0) L 01/06/19 12:58 Globulin 3.8 g/dL (2.5-4.5) 01/06/19 12:58 Albumin/Globulin Ratio 0.8 Ratio (1.1-2.1) L 01/06/19 12:58 Specimen Type Catherized urine 01/06/19 13:12 Urine Color Dark yellow (YELLOW) 01/06/19 13:12 Urine Appearance Hazy (CLEAR) 01/06/19 13:12 Urine pH 8.0 (5.0 - 8.0) 01/06/19 13:12 Ur Specific [place] 1.015 (1.000-1.030) 01/06/19 13:12 Urine Protein 3+ (NEGATIVE) 01/06/19 13:12 Urine Glucose (UA) Negative (NEGATIVE) 01/06/19 13:12 Urine Ketones Negative (NEGATIVE) 01/06/19 13:12 Urine Occult Blood 5+ (NEGATIVE) 01/06/19 13:12 Urine Nitrite Negative (NEGATIVE) 01/06/19 13:12 Urine Bilirubin Negative (NEGATIVE) 01/06/19 13:12 Urine Urobilinogen Normal (NORMAL) 01/06/19 13:12 Ur Leukocyte Esterase 3+ (NEGATIVE) 01/06/19 13:12 Urine RBC Tntc /HPF (NONE SEEN) 01/06/19 13:12 Urine WBC Tntc /HPF (NONE SEEN) 01/06/19 13:12 Ur Squamous Epith Cells Rare /HPF (NEGATIVE) 01/06/19 13:12 Amorphous Sediment 1+ /HPF (NEGATIVE) 01/06/19 13:12 Urine Bacteria 1+ /HPF (NEGATIVE) 01/06/19 13:12 Ur Culture Indicated? Yes/culture set up 01/06/19 13:12 XRAY XRAY Interpreted by: Radiologist XRAY Findings: Radiologist report on today's Brain CT Scan was noted. Diagnosis Discharge Problem: Alteration consciousness, Cystitis, Parietal lobe infarction Leukemia Qualifiers: Leukemia type: chronic, unspecified type Leukemia Active/Remission status: without remission Qualified Code(s): C95.10 - Chronic leukemia of unspecified cell type not having achieved remission
[2019-01-06 13:17] LABS: ALANINE AMINOTRANSFERASE 16 Units/L (12-78); ALBUMIN 3.1 g/dL (3.4-5.0); ALKALINE PHOSPHATASE 93 Units/L (46-116); ASPARTATE AMINO TRANSFERASE 16 Units/L (15-37); BLOOD UREA NITROGEN 33 mg/dL (7-18); CALCIUM 10.1 mg/dL (8.5-10.1); CARBON DIOXIDE 23.3 mmol/L (21-32); CHLORIDE 104 mmol/L (98-107); COR CA(FOR HYPOALB) 10.8 mg/dL (8.5-10.1); CREATININE 1.23 mg/dL (0.55-1.02); SODIUM 139 mmol/L (136-145); TOTAL PROTEIN 6.9 g/dL (6.4-8.2); eGFR NON BLACK RACES 44 (>60)
[2019-01-06 13:19] LABS: BASOPHILS # (AUTO) 0.1 X10^3/uL (0.0-0.1); BASOPHILS % (AUTO) 0.1 % (0.2-1.0); HEMATOCRIT 29.3 % (36.0-47.0); HEMOGLOBIN 9.1 g/dL (12.0-16.0); LYMPHOCYTES # (AUTO) 81.6 X10^3/uL (1.3-2.9); MEAN CORPUSCULAR HEMOGLOBIN 30.1 pg (27.0-34.0); MEAN CORPUSCULAR VOLUME 96.8 fL (80.0-100.0); MEAN PLATELET VOLUME 9.8 fL (7.4-11.0); MONOCYTES # (AUTO) 1.4 x10^3/uL (0.3-0.8); MONOCYTES % (AUTO) 1.5 % (0.0-13.0); NEUTROPHILS # (AUTO) 4.8 x10^3/uL (2.2-4.8); NEUTROPHILS % (AUTO) 5.4 % (42.0-75.0); PLATELET COUNT 193 X10^3/uL (150.0-450.0); RED BLOOD COUNT 3.02 X10^6/uL (3.5-5.4); RED CELL DISTRIBUTION WIDTH 16.8 % (11.6-16.5)
[2019-01-06 13:24] LABS: WHITE BLOOD COUNT 87.9 X10^3/uL (3.6-10.0)
[2019-01-06 13:26] LABS: HYPOCHROMASIA SLIGHT; PLATELET MORPHOLOGY COMMENT NORMAL (NORMAL)
[2019-01-06 13:31] LABS: BILIRUBIN,URINE NEGATIVE (NEGATIVE); BLOOD/HEMOGLOBIN,URINE 5+ (NEGATIVE); GLUCOSE, URINE NEGATIVE (NEGATIVE); KETONES,URINE NEGATIVE (NEGATIVE); LEUKOCYTE ESTERASE ,URINE 3+ (NEGATIVE); NITRITES,URINE NEGATIVE (NEGATIVE); PROTEIN,URINE 3+ (NEGATIVE); UROBILINOGEN,URINE NORMAL (NORMAL)
[2019-01-06 13:37] LABS: APPEARANCE,URINE HAZY (CLEAR); COLOR,URINE DARK YELLOW (YELLOW)
[2019-01-06 13:53] LABS: AMORPHOUS SEDIMENT,UR 1+ /HPF (NEGATIVE); BACTERIA,URINE 1+ /HPF (NEGATIVE); RBC,URINE TNTC /HPF (NONE SEEN); SQUAMOUS EPITHELIAL CELL,UR RARE /HPF (NEGATIVE)
--- NOTE | 2019-01-06 14:35 | RAD ---
HISTORY: Unresponsive Study: Chest AP portable Comparison: 12/16/2018 Findings: There is a pacemaker present on the left. It partially obscures the left upper lobe. The heart is enlarged. No congestive heart failure is noted. The aorta is calcified. The lungs are free of acute alveolar infiltrates. Chronic interstitial lung changes are present. No pleural effusions are identified. IMPRESSION: Stable moderate cardiomegaly without congestive heart failure Radiographically stable mild chronic interstitial lung changes Reported By:
--- NOTE | 2019-01-06 15:11 | CT ---
History: Unresponsive Exam: CT head without contrast Comparison: 12/11/2018 Technique: Routine transaxial images were obtained through the brain without contrast. Automated dose control was utilized. Findings: The ventricles are mildly enlarged and there is diffuse prominence of the cortical sulci which is more apparent . There is moderate periventricular low density bilaterally with moderate low density seen along the right parietal-occipital region extending to the subcortical white matter inferiorly consistent with encephalomalacia from an the prior infarct which is more prominent. No significant edema is seen there is no intracranial hemorrhage . There is no extra-axial fluid collection or mass . There is moderate focal scalp swelling along the left frontoparietal region. No fracture is seen. The midline structures are unremarkable. IMPRESSION: Evolving chronic infarct along the right parietal lobe with increasing encephalomalacia throughout the area. No intracranial hemorrhage or significant mass effect is seen. Small scalp hematoma along the left frontal region with no fracture. Diffuse atrophy and moderate chronic microischemic changes throughout the deep white matter. Reported By:
[2019-01-06] MEDS ORDERED: ROCEPHIN VIAL 1 GRAM IVP ONE (15:25)
[2019-01-06] MEDS ORDERED: MORPHINE SULFATE INJ 2 MG INJ IM ONE (16:26)
[2019-01-06] MEDS ORDERED: MORPHINE SULFATE INJ 2 MG INJ ONE (16:27)
[2019-01-06] MEDS ORDERED: NS 1000 ML 1,000 ML ONE (18:09)
[2019-01-06] MEDS ORDERED: ROCEPHIN VIAL 1 GRAM ONE (18:10)
[2019-01-06] MEDS: NS 1000 ML 1,000 ML IV SCH (18:18)
[2019-01-06] MEDS: MORPHINE SULFATE INJ 2 MG INJ IVP PRN (20:45)
--- NOTE | 2019-01-07 06:10 | RAD ---
HISTORY: Shortness of breath Study: Chest AP portable Comparison: 01/06/2019 Findings: There is a pacemaker present on the left partially obscuring the lateral aspect of the left mid lung. The heart is enlarged. No definite congestive heart failure is noted. Mild interstitial lung changes are present. No acute alveolar infiltrates or pleural effusions are identified. The bony thorax is unremarkable. IMPRESSION: No significant change from the prior examination Reported By:
[2019-01-07 06:43] LABS: MEAN CORPUSCULAR HGB CONC 30.7 g/dL (33.0-35.0)
[2019-01-07 06:47] LABS: BASOPHILS # (AUTO) 0.2 X10^3/uL (0.0-0.1); BASOPHILS % (AUTO) 0.2 % (0.2-1.0); HEMATOCRIT 29.4 % (36.0-47.0); LYMPHOCYTES # (AUTO) 82.6 X10^3/uL (1.3-2.9); LYMPHOCYTES % (AUTO) 92.1 % (21.0-51.0); MEAN CORPUSCULAR HEMOGLOBIN 29.4 pg (27.0-34.0); MEAN CORPUSCULAR VOLUME 95.7 fL (80.0-100.0); MEAN PLATELET VOLUME 10.1 fL (7.4-11.0); MONOCYTES # (AUTO) 1.2 x10^3/uL (0.3-0.8); MONOCYTES % (AUTO) 1.4 % (0.0-13.0); NEUTROPHILS # (AUTO) 5.6 x10^3/uL (2.2-4.8); NEUTROPHILS % (AUTO) 6.3 % (42.0-75.0); PLATELET COUNT 192 X10^3/uL (150.0-450.0); RED BLOOD COUNT 3.07 X10^6/uL (3.5-5.4)
[2019-01-07 06:48] LABS: ALANINE AMINOTRANSFERASE 16 Units/L (12-78); ALKALINE PHOSPHATASE 91 Units/L (46-116); ASPARTATE AMINO TRANSFERASE 15 Units/L (15-37); BLOOD UREA NITROGEN 31 mg/dL (7-18); CALCIUM 10.1 mg/dL (8.5-10.1); CARBON DIOXIDE 22.7 mmol/L (21-32); CHLORIDE 106 mmol/L (98-107); COR CA(FOR HYPOALB) 10.9 mg/dL (8.5-10.1); SODIUM 141 mmol/L (136-145); TOTAL PROTEIN 6.9 g/dL (6.4-8.2); eGFR NON BLACK RACES 50 (>60)
[2019-01-07 06:49] LABS: WHITE BLOOD COUNT 89.7 X10^3/uL (3.6-10.0)
[2019-01-07] MEDS ORDERED: STERILE WATER IRRIGATION ONE (07:29)
[2019-01-07] MEDS: NS 1000 ML 1,000 ML IV SCH ×3 (08:55→23:35)
[2019-01-07] MEDS: ROCEPHIN VIAL 1 GRAM IVP SCH (08:55)
[2019-01-07] MEDS: MORPHINE SULFATE INJ 2 MG INJ IVP PRN ×2 (09:33→17:41)
--- NOTE | 2019-01-07 11:36 | DR.H&P ---
H&P - History & Physical for Day of: H&P Date: 01/07/19 - Chief Complaint Chief Complaint: UNRESPONSIVE, AMS - History of Present Illness History of Present Illness: IS A 88 YEAR OLD PATIENT OF OURS WHO PRESENTED TO THE ER FROM [facility] WITH STAFF REPORTING THAT PATIENT HAS BEEN UNRESPONSIVE. PATIENT HAS HAD A RECENT CVA, TBI AND CLOSED C1 FRACTURE. SHE HAS A HISTORY OF CHRONIC LEUKEMIA. ON ARRIVAL, SHE WAS NOTED WITH EYES OPEN, BUT SHE IS UNRESPONSIVE TO VERBAL STIMULI. SHE IS WEARING A C-COLLAR. HER VITALS ON ARRIVAL WERE 98.2-60-16-97%-151/67. LABS WERE OBTAINED. ABNORMAL LAB VALUES INCLUDE THE FOLLOWING: WBC 87.9, RBC 3.02, HGB 9.1, HCT 29.3, BUN 33, CREATININE 1.23, GLUCOSE 106, ALBUMIN 3.1. URINALYSIS REVEALED: WBC TNTC, RBC TNTC, BACTERIA 1+, LEUKOCYTES 3+, OCCULT BLOOD 5+. A URINE CULTURE IS PENDING. CHEST XRAY OBTAINED AND REVEALED: Stable moderate cardiomegaly without congestive heart failure. Radiographically stable mild chronic interstitial lung changes. A BRAIN CT WAS OBTAINED AND REVEALED: Evolving chronic infarct along the right parietal lobe with increasing encephalomalacia throughout the area. No intracranial hemorrhage or significant mass effect is seen. Small scalp hematoma along the left frontal region with no fracture. Diffuse atrophy and moderate chronic microischemic changes throughout the deep white matter. SHE WAS ADMITTED FOR FURTHER EVALUATION AND TREATMENT OF A PARIETAL LOBE INFARCT, CYSTITIS, LEUKEMIA, AND ALTERED MENTAL STATUS. SHE WAS STARTED ON NORMAL SALINE AT 100ML/HR AND ROCEPHIN 1G IV DAILY. WE PLAN TO FOLLOW UP WITH AM LABS AND CONTINUE TO MONITOR. - Past Medical History Past Medical History: [place], Coronary Artery Disease, Hypertension, Dyslipidemia, Renal Disease, Dementia, Anemia, GERD, Arthritis, CHF Additional Medical History: TIA, DEMENTIA, CONSTIPATION, UTIs, MUSCLE WEAKNESS, LEUKEMIA - Past Surgical History Surgical History: Other Additional Surgical History: PACEMAKER - Family History Family Medical History: Coronary Artery Disease, Hypertension - Social History Does patient currently use any type of tobacco product: No Have you used tobacco products in the last 12 months: No Type of Tobacco Use: None Does any household member use tobacco: No Alcohol Use: None Drug Use: None - Medications Home Medications: codeine Allergy (Severe, Verified 03/24/18 17:29) CONTINUE taking the following medications emollient 1 applic TOPICAL DAILY 01/06/19 [History] - Review of Systems Constitutional: See HPI, Other (UNRESPONSIVE ) Eyes: No Symptoms Reported ENT: No Symptoms Reported Respiratory: No Symptoms Reported Cardiovascular: No Symptoms Reported Gastrointestinal: No Symptoms Reported Genitourinary: No Symptoms Reported Musculoskeletal: No Symptoms Reported Skin: No Symptoms Reported Neurological: See HPI - Physical Exam Vital Signs: Temperature 98.2 F Pulse Rate [Left Brachial] 60 Pulse Rate 60 Respiratory Rate 21 Blood Pressure [Right Arm] 147/66 Blood Pressure [Left Arm] 149/67 Blood Pressure 135/62 O2 Sat by Pulse Oximetry 100 Oriented: Unable to test Eyes: Normal Ear: Normal Nose: Normal Throat: Normal Respiratory: Diminished Throughout Cardiovascular: Normal : Normal Auscultation: Bowel Sounds: Normal Palpation: Normal Tenderness: Normal Skin: Normal Musculoskeletal: Normal Psychiatric: Other (UNRESPONSIVE ) Mood Description: Flat Affect: Flat Speech Pattern: Aphasic - Assessment/Plan (1) Parietal lobe infarction Status: Acute (2) Alteration consciousness Status: Acute (3) Cystitis Status: Acute (4) Leukemia Qualifiers: Leukemia type: chronic, unspecified type Leukemia Active/Remission status: without remission Qualified Code(s): C95.10 - Chronic leukemia of unspecified cell type not having achieved remission Status: Acute - Allergies Allergies/Adverse Reactions: Allergies Allergy/AdvReac Type Severity Reaction Status Date / Time codeine Allergy Severe Verified 03/24/18 17:29
[2019-01-07] MEDS: LOVENOX INJ 30 MG SYR SC SCH (17:02)
[2019-01-08] MEDS: MORPHINE SULFATE INJ 2 MG INJ IVP PRN ×3 (02:12→22:13)
--- NOTE | 2019-01-08 06:53 | RAD ---
Examination: Portable AP chest History: Unresponsive, SOB Comparison 01/07/2019 Findings: The heart is not significantly enlarged. No change in position of pacing device. Diffuse interstitial pulmonary prominence is likely chronic. No developing consolidation, edema or pleural fluid. Degenerative calcification of mitral annulus. Impression: No interval change since 1 day prior. Reported By:
[2019-01-08 07:00] LABS: BASOPHILS # (AUTO) 0.1 X10^3/uL (0.0-0.1); BASOPHILS % (AUTO) 0.1 % (0.2-1.0); EOSINOPHILS # (AUTO) 0.1 x10^3/uL (0.0-0.2); EOSINOPHILS % (AUTO) 0.1 % (0.9-2.9); HEMATOCRIT 29.7 % (36.0-47.0); HEMOGLOBIN 9.1 g/dL (12.0-16.0); LYMPHOCYTES # (AUTO) 74.7 X10^3/uL (1.3-2.9); LYMPHOCYTES % (AUTO) 92.3 % (21.0-51.0); MEAN CORPUSCULAR HEMOGLOBIN 29.8 pg (27.0-34.0); MEAN CORPUSCULAR HGB CONC 30.6 g/dL (33.0-35.0); MEAN CORPUSCULAR VOLUME 97.4 fL (80.0-100.0); MEAN PLATELET VOLUME 10.1 fL (7.4-11.0); MONOCYTES # (AUTO) 0.6 x10^3/uL (0.3-0.8); MONOCYTES % (AUTO) 0.7 % (0.0-13.0); NEUTROPHILS # (AUTO) 5.5 x10^3/uL (2.2-4.8); NEUTROPHILS % (AUTO) 6.8 % (42.0-75.0); PLATELET COUNT 179 X10^3/uL (150.0-450.0); RED BLOOD COUNT 3.05 X10^6/uL (3.5-5.4); RED CELL DISTRIBUTION WIDTH 16.7 % (11.6-16.5)
[2019-01-08 07:18] LABS: ALANINE AMINOTRANSFERASE 14 Units/L (12-78); ALBUMIN 2.9 g/dL (3.4-5.0); ALKALINE PHOSPHATASE 88 Units/L (46-116); ASPARTATE AMINO TRANSFERASE 17 Units/L (15-37); BLOOD UREA NITROGEN 27 mg/dL (7-18); CALCIUM 9.8 mg/dL (8.5-10.1); CHLORIDE 109 mmol/L (98-107); COR CA(FOR HYPOALB) 10.7 mg/dL (8.5-10.1); CREATININE 1.08 mg/dL (0.55-1.02); SODIUM 143 mmol/L (136-145); TOTAL PROTEIN 6.7 g/dL (6.4-8.2); eGFR NON BLACK RACES 51 (>60)
[2019-01-08 07:25] LABS: PLATELET MORPHOLOGY COMMENT NORMAL (NORMAL)
[2019-01-08] MEDS: NS 1000 ML 1,000 ML IV SCH ×3 (09:11→19:58)
[2019-01-08] MEDS: LOVENOX INJ 30 MG SYR SC SCH (09:12)
[2019-01-08] MEDS: ROCEPHIN VIAL 1 GRAM IVP SCH (09:12)
[2019-01-08] MEDS ORDERED: MORPHINE SULFATE PCA 30 MG ONE (11:27)
[2019-01-08] MEDS: MORPHINE SULFATE PCA 30 MG IVP SCH (12:02)
[2019-01-09] MEDS: MORPHINE SULFATE PCA 30 MG IVP SCH ×2 (00:22→14:10)
[2019-01-09] MEDS: NS 1000 ML 1,000 ML IV SCH ×4 (04:40→16:11)
--- NOTE | 2019-01-09 05:59 | RAD ---
Examination: Portable AP chest History: SOB Comparison 01/08/2019 Findings: There is no significant change in appearance of heart, lungs or pleural surfaces since 1 day earlier. Stable position of cardiac pacemaker. No evidence for developing pulmonary infiltrate, pneumothorax or large pleural effusion. Impression: No interval change. Reported By:
[2019-01-09 06:16] LABS: BASOPHILS % (AUTO) 0 % (0.2-1.0); EOSINOPHILS # (AUTO) 0.1 x10^3/uL (0.0-0.2); EOSINOPHILS % (AUTO) 0.1 % (0.9-2.9); HEMATOCRIT 26.5 % (36.0-47.0); LYMPHOCYTES # (AUTO) 79.3 X10^3/uL (1.3-2.9); LYMPHOCYTES % (AUTO) 92.7 % (21.0-51.0); MEAN CORPUSCULAR HEMOGLOBIN 29.7 pg (27.0-34.0); MEAN CORPUSCULAR HGB CONC 30.3 g/dL (33.0-35.0); MEAN PLATELET VOLUME 9.9 fL (7.4-11.0); MONOCYTES # (AUTO) 0.8 x10^3/uL (0.3-0.8); MONOCYTES % (AUTO) 0.9 % (0.0-13.0); NEUTROPHILS # (AUTO) 5.4 x10^3/uL (2.2-4.8); NEUTROPHILS % (AUTO) 6.3 % (42.0-75.0); PLATELET COUNT 187 X10^3/uL (150.0-450.0); RED CELL DISTRIBUTION WIDTH 16.5 % (11.6-16.5)
[2019-01-09 06:19] LABS: WHITE BLOOD COUNT 85.6 X10^3/uL (3.6-10.0)
[2019-01-09 06:34] LABS: PLATELET MORPHOLOGY COMMENT NORMAL (NORMAL)
[2019-01-09 06:37] LABS: ALANINE AMINOTRANSFERASE 14 Units/L (12-78); ALBUMIN 2.9 g/dL (3.4-5.0); ALKALINE PHOSPHATASE 89 Units/L (46-116); ASPARTATE AMINO TRANSFERASE 18 Units/L (15-37); BLOOD UREA NITROGEN 23 mg/dL (7-18); CALCIUM 9.5 mg/dL (8.5-10.1); CARBON DIOXIDE 20.9 mmol/L (21-32); CHLORIDE 112 mmol/L (98-107); COR CA(FOR HYPOALB) 10.4 mg/dL (8.5-10.1); SODIUM 145 mmol/L (136-145); TOTAL PROTEIN 6.1 g/dL (6.4-8.2); eGFR NON BLACK RACES > 60 (>60)
[2019-01-09] MEDS: LOVENOX INJ 30 MG SYR SC SCH (09:00)
[2019-01-09] MEDS: ROCEPHIN VIAL 1 GRAM IVP SCH (09:15)
[2019-01-09] MEDS ORDERED: CATAPRES-TTS-2 TD SCH (10:00)
[2019-01-09] MEDS ORDERED: CATAPRES-TTS-1 ONE (11:59)
[2019-01-09] MEDS: MORPHINE SULFATE INJ 2 MG INJ IVP PRN (12:52)
--- NOTE | 2019-01-09 16:25 | PCM.PROG ---
Progress Note - Progress Note for Day of Date of Exam: 01/07/19 - Subjective Subjective: WAS ADMITTED FOR ALTERED MENTAL STATUS, RECENT PARIETAL LOBE INFARCTION, CYSTITIS, AND LEUKEMIA. TODAY, SHE IS LYING IN BED WITH EYES CLOSED ON MORNING ROUNDS. SHE IS NOT RESPONSIVE TO VERBAL STIMULI. FAMILY REPORTS THAT SHE OPENS HER EYES AT TIMES, BUT WILL NOT SPEAK OR EAT. ON EXAM INATION, HEART IS REGULAR IN RATE AND RHYTHM. BILATERAL LUNGS ARE NOTED WITH DIMINISHED LUNG SOUNDS THROUGHOUT. ABDOMEN IS ROUND, SOFT, AND NON-TENDER WITH NORMAL BOWEL SOUNDS NOTED IN ALL QUADRANTS. HER VITALS THIS MORNING ARE 98.2-60-16-99%-130/60. LABS WERE OBTAINED. ABNORMAL LAB VALUES INLCUDE THE FOLLOWING: WBC 89.7, RBC 3.07, HGB 9.0, HCT 29.4, BUN 31, CREATININE 1.10, ALBUMIN 3.0. URINE CULTURE IS PENDING. A CHEST XRAY WAS OBTAINED TODAY AND REVEALED: There is a pacemaker present on the left partially obscuring the lateral aspect of the left mid lung. The heart is enlarged. No definite congestive heart failure is noted. Mild interstitial lung changes are present. No acute or pleural effusions are identified. The bony thorax is unremarkable. SHE IS CURRENTLY RECEIVING IV HYDRATION AND ROCEPHIN 1G IV DAILY. TODAY, WE WILL ADD LOVENOX 30MG SC DAILY. OTHERWISE, WE WILL FOLLOW UP WITH AM LABS AND CONTINUE TO MONITOR. - Past Medical Family Social History Past Med/Fam/Surg Hx: No changes since H&P Allergies: Allergies codeine Allergy (Severe, Verified 03/24/18 17:29) - Review of Systems ROS: No change since H&P - Vital Signs and I&O's Vital Signs: Temperature 97.7 F Pulse Rate [Left Brachial] 60 Pulse Rate 60 Respiratory Rate 17 Blood Pressure [Right Arm] 147/66 Blood Pressure [Left Arm] 149/67 Blood Pressure 175/72 O2 Sat by Pulse Oximetry 96 Intake and Output: Intake & Output 01/07/19 01/08/19 01/09/19 01/10/19 11:59 11:59 11:59 11:59 Intake Total 1020 / 1020 3014 / 3014 2037 / 8 1036 / 1036 Output Total 900 / 900 1250 / 1250 1000 / 1000 325 / 325 Balance 120 / 120 1764 / 1764 1038 / 1038 711 / 711 - Physical Exam Oriented: Unable to test Eyes: Normal Ear: Normal Nose: Normal Throat: Normal Cardiovascular: Normal : Normal Auscultation: Bowel Sounds: Normal Palpation: Normal Tenderness: Normal Skin: Normal Musculoskeletal: Normal Psychiatric: Other (UNRESPONSIVE ) Mood Description: Flat Affect: Flat Speech Pattern: Unclear, Aphasic - Laboratory and Diagnostics Result Diagrams: 01/09/19 05:35 01/09/19 05:35 Labs: 01/06/19 13:12 Urine,Catheterized Urine Culture - Final Citrobacter Freundii Enterococcus Faecalis Laboratory WBC 85.6 X10^3/uL (3.6-10.0) H* 01/09/19 05:35 RBC 2.70 X10^6/uL (3.5-5.4) L 01/09/19 05:35 Hgb 8.0 g/dL (12.0-16.0) L 01/09/19 05:35 Hct 26.5 % (36.0-47.0) L 01/09/19 05:35 MCV 98.0 fL (80.0-100.0) 01/09/19 05:35 MCH 29.7 pg (27.0-34.0) 01/09/19 05:35 MCHC 30.3 g/dL (33.0-35.0) L 01/09/19 05:35 RDW 16.5 % (11.6-16.5) 01/09/19 05:35 Plt Count 187 X10^3/uL (150.0-450.0) 01/09/19 05:35 Plt Count Comment Adequate (ADEQUATE) 01/09/19 05:35 MPV 9.9 fL (7.4-11.0) 01/09/19 05:35 Neut % (Auto) 6.3 % (42.0-75.0) L 01/09/19 05:35 Lymph % (Auto) 92.7 % (21.0-51.0) H 01/09/19 05:35 [place] % (Auto) 0.9 % (0.0-13.0) 01/09/19 05:35 Eos % (Auto) 0.1 % (0.9-2.9) L 01/09/19 05:35 Baso % (Auto) 0 % (0.2-1.0) L 01/09/19 05:35 Neut # (Auto) 5.4 x10^3/uL (2.2-4.8) H 01/09/19 05:35 Lymph # (Auto) 79.3 X10^3/uL (1.3-2.9) H 01/09/19 05:35 [place] # (Auto) 0.8 x10^3/uL (0.3-0.8) 01/09/19 05:35 Eos # (Auto) 0.1 x10^3/uL (0.0-0.2) 01/09/19 05:35 Baso # (Auto) 0.0 X10^3/uL (0.0-0.1) 01/09/19 05:35 Absolute Nucleated RBC 0.1 /100WBC 01/09/19 05:35 Total Counted 100 01/09/19 05:35 Neutrophils % (Manual) 6 % (39-76) L 01/09/19 05:35 Lymphocytes % (Manual) 84 % (13-43) H 01/09/19 05:35 Monocytes % (Manual) 3 % (4-9) L 01/09/19 05:35 Atypical Lymphocytes 7 01/09/19 05:35 Plt Morphology Comment Normal (NORMAL) 01/09/19 05:35 RBC Morphology Normal (NORMAL) 01/09/19 05:35 Hypochromasia Slight A 01/06/19 12:58 Sodium 145 mmol/L (136-145) 01/09/19 05:35 Corrected Sodium TNP 01/09/19 05:35 Potassium 5.2 mmol/L (3.5-5.1) H 01/09/19 05:35 Chloride 112 mmol/L (98-107) H 01/09/19 05:35 Carbon Dioxide 20.9 mmol/L (21-32) L 01/09/19 05:35 BUN 23 mg/dL (7-18) H 01/09/19 05:35 Creatinine 0.90 mg/dL (0.55-1.02) 01/09/19 05:35 Est GFR (MDRD) Af Amer > 60 (>60) 01/09/19 05:35 Est GFR (MDRD) Non-Af > 60 (>60) 01/09/19 05:35 Glucose 90 mg/dL (65-99) 01/09/19 05:35 Calcium 9.5 mg/dL (8.5-10.1) 01/09/19 05:35 Corrected Calcium 10.4 mg/dL (8.5-10.1) H 01/09/19 05:35 Total Bilirubin 0.20 mg/dL (0.2-1.0) 01/09/19 05:35 AST 18 Units/L (15-37) 01/09/19 05:35 ALT 14 Units/L (12-78) 01/09/19 05:35 Alkaline Phosphatase 89 Units/L (46-116) 01/09/19 05:35 Total Protein 6.1 g/dL (6.4-8.2) L 01/09/19 05:35 Albumin 2.9 g/dL (3.4-5.0) L 01/09/19 05:35 Globulin 3.2 g/dL (2.5-4.5) 01/09/19 05:35 Albumin/Globulin Ratio 0.9 Ratio (1.1-2.1) L 01/09/19 05:35 Specimen Type Catherized urine 01/06/19 13:12 Urine Color Dark yellow (YELLOW) 01/06/19 13:12 Urine Appearance Hazy (CLEAR) 01/06/19 13:12 Urine pH 8.0 (5.0 - 8.0) 01/06/19 13:12 Ur Specific [place] 1.015 (1.000-1.030) 01/06/19 13:12 Urine Protein 3+ (NEGATIVE) 01/06/19 13:12 Urine Glucose (UA) Negative (NEGATIVE) 01/06/19 13:12 Urine Ketones Negative (NEGATIVE) 01/06/19 13:12 Urine Occult Blood 5+ (NEGATIVE) 01/06/19 13:12 Urine Nitrite Negative (NEGATIVE) 01/06/19 13:12 Urine Bilirubin Negative (NEGATIVE) 01/06/19 13:12 Urine Urobilinogen Normal (NORMAL) 01/06/19 13:12 Ur Leukocyte Esterase 3+ (NEGATIVE) 01/06/19 13:12 Urine RBC Tntc /HPF (NONE SEEN) 01/06/19 13:12 Urine WBC Tntc /HPF (NONE SEEN) 01/06/19 13:12 Ur Squamous Epith Cells Rare /HPF (NEGATIVE) 01/06/19 13:12 Amorphous Sediment 1+ /HPF (NEGATIVE) 01/06/19 13:12 Urine Bacteria 1+ /HPF (NEGATIVE) 01/06/19 13:12 Ur Culture Indicated? Yes/culture set up 01/06/19 13:12 - Plan (1) Parietal lobe infarction Status: Acute Plan: LOVENOX 30MG SQ DAILY, CONTINUE TO MONITOR (2) Alteration consciousness Status: Acute (3) Cystitis Status: Acute (4) Leukemia Status: Acute Qualifiers: Leukemia type: chronic, unspecified type Leukemia Active/Remission status: without remission Qualified Code(s): C95.10 - Chronic leukemia of unspecified cell type not having achieved remission
[2019-01-09 17:01] LABS: HEMATOCRIT 24.9 % (36.0-47.0); HEMOGLOBIN 7.7 g/dL (12.0-16.0)
[2019-01-10] MEDS: NS 1000 ML 1,000 ML IV SCH ×2 (03:03)
[2019-01-10] MEDS: MORPHINE SULFATE INJ 2 MG INJ IVP PRN ×2 (05:45→09:26)
[2019-01-10 06:19] LABS: BASOPHILS % (AUTO) 0 % (0.2-1.0); EOSINOPHILS # (AUTO) 0.1 x10^3/uL (0.0-0.2); EOSINOPHILS % (AUTO) 0.1 % (0.9-2.9); HEMATOCRIT 25.2 % (36.0-47.0); HEMOGLOBIN 7.5 g/dL (12.0-16.0); LYMPHOCYTES # (AUTO) 77.5 X10^3/uL (1.3-2.9); LYMPHOCYTES % (AUTO) 92.9 % (21.0-51.0); MEAN CORPUSCULAR HEMOGLOBIN 29.9 pg (27.0-34.0); MEAN CORPUSCULAR HGB CONC 29.8 g/dL (33.0-35.0); MEAN CORPUSCULAR VOLUME 100.3 fL (80.0-100.0); MEAN PLATELET VOLUME 10.1 fL (7.4-11.0); MONOCYTES # (AUTO) 0.8 x10^3/uL (0.3-0.8); MONOCYTES % (AUTO) 0.9 % (0.0-13.0); NEUTROPHILS # (AUTO) 5.1 x10^3/uL (2.2-4.8); NEUTROPHILS % (AUTO) 6.1 % (42.0-75.0); PLATELET COUNT 192 X10^3/uL (150.0-450.0); RED BLOOD COUNT 2.51 X10^6/uL (3.5-5.4); RED CELL DISTRIBUTION WIDTH 16.9 % (11.6-16.5)
[2019-01-10 06:21] LABS: ALANINE AMINOTRANSFERASE 12 Units/L (12-78); ALBUMIN 2.7 g/dL (3.4-5.0); ALKALINE PHOSPHATASE 80 Units/L (46-116); ASPARTATE AMINO TRANSFERASE 15 Units/L (15-37); BLOOD UREA NITROGEN 28 mg/dL (7-18); CALCIUM 9.6 mg/dL (8.5-10.1); CARBON DIOXIDE 19.1 mmol/L (21-32); CHLORIDE 114 mmol/L (98-107); COR CA(FOR HYPOALB) 10.6 mg/dL (8.5-10.1); CREATININE 1.07 mg/dL (0.55-1.02); SODIUM 146 mmol/L (136-145); TOTAL PROTEIN 6.2 g/dL (6.4-8.2); eGFR NON BLACK RACES 51 (>60)
[2019-01-10 06:29] LABS: WHITE BLOOD COUNT 83.5 X10^3/uL (3.6-10.0)
--- NOTE | 2019-01-10 08:41 | PCM.PROG ---
Progress Note - Progress Note for Day of Date of Exam: 01/08/19 - Subjective Subjective: WAS ADMITTED FOR ALTERED MENTAL STATUS, RECENT PARIETAL LOBE INFARCTION, CYSTITIS, AND LEUKEMIA. TODAY, SHE IS LYING IN BED WITH EYES CLOSED ON MORNING ROUNDS. SHE CONTINUES TO BE UNRESPONSIVE TO VERBAL STIMULI. FAMILY REPORTS THAT SHE OPENS HER EYES AT TIMES, BUT WILL NOT SPEAK OR EAT. ON EXAMINATION, HEART IS REGULAR IN RATE AND RHYTHM. BILATERAL LUNGS ARE NOTED WITH DIMINISHED LUNG SOUNDS THROUGHOUT. ABDOMEN IS ROUND, SOFT, AND NON-TENDER WITH NORMAL BOWEL SOUNDS NOTED IN ALL QUADRANTS. HER VITALS THIS MORNING ARE 98.8-60-19-96%-183/76. LABS WERE OBTAINED. ABNORMAL LAB VALUES INLCUDE THE FOLLOWING: WBC 81.0, RB C 3.05, HGB 9.1, HCT 29.7, CHLORIDE 109, CARBON DIOXIDE 20.0, BUN 27, CREATININE 1.08, ALBUMIN 2.9. URINE CULTURE REPORTS GROWTH OF CITROBACTER FREUNDII AND ENTEROCOCCUS FAECALIS. A CHEST XRAY WAS OBTAINED TODAY AND REVEALED: The heart is not significantly enlarged. No change in position of pacing device. Diffuse interstitial pulmonary prominence is likely chronic. No developing consolidation, edema or pleural fluid. Degenerative calcification of mitral annulus. SHE IS CURRENTLY RECEIVING IV HYDRATION AND ROCEPHIN 1G IV DAILY. WE WILL CONTINUE WITH CURRENT PLAN OF CARE TODAY. OTHERWISE, WE WILL FOLLOW UP WITH AM LABS AND CONTINUE TO MONITOR. - Past Medical Family Social History Past Med/Fam/Surg Hx: No changes since H&P Allergies: Allergies codeine Allergy (Severe, Verified 03/24/18 17:29) - Review of Systems ROS: No change since H&P - Vital Signs and I&O's Vital Signs: Temperature 98 F Pulse Rate [Left Brachial] 60 Pulse Rate 60 Respiratory Rate 17 Blood Pressure [Right Arm] 147/66 Blood Pressure [Left Arm] 149/67 Blood Pressure 179/74 O2 Sat by Pulse Oximetry 98 Intake and Output: Intake & Output 01/07/19 01/08/19 01/09/19 01/10/19 11:59 11:59 11:59 11:59 Intake Total 1020 / 1020 3014 / 3014 8 / 2038 2206 / 2206 Output Total 900 / 900 1250 / 1250 1000 / 1000 675 / 675 Balance 120 / 120 1764 / 1764 1038 / 1038 1531 / 1531 - Physical Exam Oriented: Unable to test Eyes: Normal Ear: Normal Nose: Normal Throat: Normal Cardiovascular: Normal : Normal Auscultation: Bowel Sounds: Normal Tenderness: Normal Skin: Normal Musculoskeletal: Normal Psychiatric: Other (UNRESPONSIVE ) Mood Description: Flat Affect: Flat Speech Pattern: Unclear, Aphasic - Laboratory and Diagnostics Result Diagrams: 01/10/19 05:35 01/10/19 05:35 Labs: 01/06/19 13:12 Urine,Catheterized Urine Culture - Final Citrobacter Freundii Enterococcus Faecalis Laboratory WBC 83.5 X10^3/uL (3.6-10.0) H* 01/10/19 05:35 RBC 2.51 X10^6/uL (3.5-5.4) L 01/10/19 05:35 Hgb 7.5 g/dL (12.0-16.0) L 01/10/19 05:35 Hct 25.2 % (36.0-47.0) L 01/10/19 05:35 MCV 100.3 fL (80.0-100.0) H 01/10/19 05:35 MCH 29.9 pg (27.0-34.0) 01/10/19 05:35 MCHC 29.8 g/dL (33.0-35.0) L 01/10/19 05:35 RDW 16.9 % (11.6-16.5) H 01/10/19 05:35 Plt Count 192 X10^3/uL (150.0-450.0) 01/10/19 05:35 Plt Count Comment Adequate (ADEQUATE) 01/09/19 05:35 MPV 10.1 fL (7.4-11.0) 01/10/19 05:35 Neut % (Auto) 6.1 % (42.0-75.0) L 01/10/19 05:35 Lymph % (Auto) 92.9 % (21.0-51.0) H 01/10/19 05:35 [place] % (Auto) 0.9 % (0.0-13.0) 01/10/19 05:35 Eos % (Auto) 0.1 % (0.9-2.9) L 01/10/19 05:35 Baso % (Auto) 0 % (0.2-1.0) L 01/10/19 05:35 Neut # (Auto) 5.1 x10^3/uL (2.2-4.8) H 01/10/19 05:35 Lymph # (Auto) 77.5 X10^3/uL (1.3-2.9) H 01/10/19 05:35 [place] # (Auto) 0.8 x10^3/uL (0.3-0.8) 01/10/19 05:35 Eos # (Auto) 0.1 x10^3/uL (0.0-0.2) 01/10/19 05:35 Baso # (Auto) 0.0 X10^3/uL (0.0-0.1) 01/10/19 05:35 Absolute Nucleated RBC 0.1 /100WBC 01/10/19 05:35 Total Counted 100 01/09/19 05:35 Neutrophils % (Manual) 6 % (39-76) L 01/09/19 05:35 Lymphocytes % (Manual) 84 % (13-43) H 01/09/19 05:35 Monocytes % (Manual) 3 % (4-9) L 01/09/19 05:35 Atypical Lymphocytes 7 01/09/19 05:35 Plt Morphology Comment Normal (NORMAL) 01/09/19 05:35 RBC Morphology Normal (NORMAL) 01/09/19 05:35 Hypochromasia Slight A 01/06/19 12:58 Sodium 146 mmol/L (136-145) H 01/10/19 05:35 Corrected Sodium TNP 01/10/19 05:35 Potassium 5.2 mmol/L (3.5-5.1) H 01/10/19 05:35 Chloride 114 mmol/L (98-107) H 01/10/19 05:35 Carbon Dioxide 19.1 mmol/L (21-32) L 01/10/19 05:35 BUN 28 mg/dL (7-18) H 01/10/19 05:35 Creatinine 1.07 mg/dL (0.55-1.02) H 01/10/19 05:35 Est GFR (MDRD) Af Amer > 60 (>60) 01/10/19 05:35 Est GFR (MDRD) Non-Af 51 (>60) L 01/10/19 05:35 Glucose 89 mg/dL (65-99) 01/10/19 05:35 Calcium 9.6 mg/dL (8.5-10.1) 01/10/19 05:35 Corrected Calcium 10.6 mg/dL (8.5-10.1) H 01/10/19 05:35 Total Bilirubin 0.20 mg/dL (0.2-1.0) 01/10/19 05:35 AST 15 Units/L (15-37) 01/10/19 05:35 ALT 12 Units/L (12-78) 01/10/19 05:35 Alkaline Phosphatase 80 Units/L (46-116) 01/10/19 05:35 Total Protein 6.2 g/dL (6.4-8.2) L 01/10/19 05:35 Albumin 2.7 g/dL (3.4-5.0) L 01/10/19 05:35 Globulin 3.5 g/dL (2.5-4.5) 01/10/19 05:35 Albumin/Globulin Ratio 0.8 Ratio (1.1-2.1) L 01/10/19 05:35 Specimen Type Catherized urine 01/06/19 13:12 Urine Color Dark yellow (YELLOW) 01/06/19 13:12 Urine Appearance Hazy (CLEAR) 01/06/19 13:12 Urine pH 8.0 (5.0 - 8.0) 01/06/19 13:12 Ur Specific [place] 1.015 (1.000-1.030) 01/06/19 13:12 Urine Protein 3+ (NEGATIVE) 01/06/19 13:12 Urine Glucose (UA) Negative (NEGATIVE) 01/06/19 13:12 Urine Ketones Negative (NEGATIVE) 01/06/19 13:12 Urine Occult Blood 5+ (NEGATIVE) 01/06/19 13:12 Urine Nitrite Negative (NEGATIVE) 01/06/19 13:12 Urine Bilirubin Negative (NEGATIVE) 01/06/19 13:12 Urine Urobilinogen Normal (NORMAL) 01/06/19 13:12 Ur Leukocyte Esterase 3+ (NEGATIVE) 01/06/19 13:12 Urine RBC Tntc /HPF (NONE SEEN) 01/06/19 13:12 Urine WBC Tntc /HPF (NONE SEEN) 01/06/19 13:12 Ur Squamous Epith Cells Rare /HPF (NEGATIVE) 01/06/19 13:12 Amorphous Sediment 1+ /HPF (NEGATIVE) 01/06/19 13:12 Urine Bacteria 1+ /HPF (NEGATIVE) 01/06/19 13:12 Ur Culture Indicated? 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
[2019-01-10] MEDS ORDERED: XARELTO PO SCH (09:00)
[2019-01-10] MEDS: LOVENOX INJ 30 MG SYR SC SCH (10:31)
[2019-01-10] MEDS: ROCEPHIN VIAL 1 GRAM IVP SCH (10:33)
[2019-01-10] MEDS ORDERED: MORPHINE SULFATE INJ 4 MG IVP ONE (12:11)
[2019-01-10] MEDS ORDERED: MORPHINE SULFATE INJ 4 MG ONE (12:25)
[2019-01-10 14:10] VITALS: BP 170/72
== END 2019-01-10 14:20 | DRG 65 ==
LOC: ER 12:23 → ICU 12:23 → OBSVTOIN 16:15 → ICU 17:55
PROVIDERS: ADMIT Internal Medicine; ATTEND Internal Medicine
DX: R40.4 Transient alteration of awareness; R60.0 Localized edema; S12.9XXA Fracture of neck, unspecified, initial encounter; Z91.81 History of falling; E78.2 Mixed hyperlipidemia; N39.0 Urinary tract infection, site not specified; B96.89 Other specified bacterial agents as the cause of diseases classified elsewhere; X58.XXXA Exposure to other specified factors, initial encounter; I10 Essential (primary) hypertension; I25.10 Atherosclerotic heart disease of native coronary artery without angina pectoris; C95.10 Chronic leukemia of unspecified cell type not having achieved remission; K21.9 Gastro-esophageal reflux disease without esophagitis; B95.2 Enterococcus as the cause of diseases classified elsewhere; I63.9 Cerebral infarction, unspecified; I87.2 Venous insufficiency (chronic) (peripheral)
CPT/HCPCS: 36415; 36556; 51701; 51702; 70450; 71010; 71045; 80053; 81001; 85014; 85018; 85025; 87086; 87088; 87186; 93005; 96365; 99284; A4217; A4222; J0696; J1650; J2270; J2271; J7030